=== PATIENT | female | born 1990 | race Caucasian/White ===

== ENCOUNTER → 2019-05-10 14:09 | Outpatient (BNVA) | payer OTHER, SELFPAY | PROVIDERS: Family Provider Family Medicine; PCP Family Medicine; Visit Provider Nurse Practitioner Women's Health | DX: Z01.89 Encounter for other specified special examinations (principal) | CPT/HCPCS: 84315 ==

== ENCOUNTER 2019-05-16 02:45 | Observation (INO) | payer OTHER, SELFPAY ==
[2019-05-15 23:03] VITALS: BP 154/90; PULSE 81; RESP 16; TEMP 36.6
[2019-05-15 23:05] VITALS: BMI 29.5
[2019-05-15 23:18] VITALS: BP 133/73; PULSE 68
[2019-05-15 23:33] VITALS: BP 0/0
[2019-05-15 23:34] VITALS: BP 146/75; PULSE 77
[2019-05-15 23:48] VITALS: BP 0/0; BP 134/76; PULSE 75
[2019-05-16] VITALS (75 sets, daily range): BP systolic 0–143; BP diastolic 0–78; PULSE 63–106; RESP 16–18; TEMP 36.6; O2SAT 95–98
[2019-05-16] MEDS: NIFEdipine ER (24 hr) 30 mg Tablet PO (00:09)
[2019-05-16] MEDS: lactated ringers 1,000 ML 999 ML IV (00:09)
[2019-05-16 00:37] LABS: Bacteria Urine 1+; Bilirubin Urine Neg (NEGATIVE); Blood Urine Neg (Negative); Glucose Urine UA Norm (Normal); Ketones Urine 1+ (Negative); Leukocyte Esterase Urine Negative (Negative); Nitrate Urine Negative (Negative); Protein Urine Neg (Negative); RBC Urine RARE /hpf (0-2); Squamous Epithelial Cell Urine 0-4 (0-5); Urine Appearance Clear (CLEAR); Urine Color Yellow (Yellow); Urobilinogen Urine Norm (Negative); WBC Urine 0-4 /hpf (0-5); pH Urine 5 (5-7)
[2019-05-16 00:38] LABS: Mucus Urine 1+
[2019-05-16] MEDS: fentaNYL 50 mcg/mL INJ 2mL IVP ×2 (01:36→02:32)
[2019-05-16] MEDS: lactated ringers 1,000 ML 125 ML IV (01:36)
[2019-05-16] MEDS: terbutaline 1 mg/mL INJ 0.25 MG SUBCUT (02:47)
[2019-05-16] MEDS: morphine 4 mg/mL SDV 1 mL 8 MG IM (03:31)
[2019-05-16] MEDS: promethazine 25 mg/mL SDV 1 mL IM (03:31)
--- NOTE | 2019-05-16 07:48 | PM.OBGYPN ---
CONVENTION SERVICES DIRECTOR Subjective Subjective: Interval history: 29-year-old female with an estimated gestational age of 31 weeks. Contraction has stopped Labor: Station: -3 Amniotic Membrane Status: Intact Monitor Mode: External Contraction Pattern: Rare Status: Category l Vitals/I&O/Wt Last Vital Signs Temp 97.8 F 05/15/19 23:03 Pulse 63 05/16/19 07:33 Resp 18 05/16/19 02:32 BP 112/59 05/16/19 07:33 Pulse Ox 97 05/16/19 05:37 05/15/19 05/16/19 05/16/19 22:59 06:59 14:59 Intake Total 1000 / 1000 Balance 1000 / 1000 Weight last 48 hrs Weight 172 lb Physical Exam Narrative: EXAM NARRATIVE: GA: Alert and oriented ?3. Lungs: Clear to auscultation bilaterally. Heart: regular rhythm and rate. Abdomen: Gravid, fundal height relates dates, nontender. PRIMARY SUBSTANCE ABUSE COUNSELOR: SVE; dilation: 0 cm, effacement: 0 %, station: -5, presentation: vertex, membranes: intact. Extremities: no edema, no cyanosis, no calves pain. heart tracing: Basal rate: 130s bpm, Variability: moderate, Accelerations: present, Decelerations: absent, Contractions: none. A&P Assessment and plan (1) False labor before 37 completed weeks of gestation, third trimester: 29-year-old female with Gestational age of 31 weeks. Came to labor and delivery complaining of contractions after coitus. She was treated with IV hydration, tocolysis with nifedipine with little response and then treated with terbutaline ?1. Contractions have subsided. NO cervical change noted during the observation. she was counseled to keep a scheduled visit. Precautions were given and adviced to return to L&D if symptoms return. Plan: Discharge home. Continue caresschedule Status: Acute Code(s): O47.03 - False labor before 37 completed weeks of gestation, third trimester Attestations Medical Necessity Statement*: in my professional opinion for chief complaint Coding Level of Care Code Acute Garment Parts Cutter Hand for Chg Fwd Diagnoses False labor before 37 completed weeks of gestation, third trimester O47.03
== END 2019-05-16 08:09 | disposition home or self-care (01) ==
LOC: OBGYN 08:03 → OPOB 08:32
PROVIDERS: Admitting Provider Obstetrics & Gynecology; Family Provider Family Medicine; PCP Family Medicine; Visit Provider Obstetrics & Gynecology
DX: O47.03 False labor before 37 completed weeks of gestation, third trimester (principal); Z3A.31 31 weeks gestation of pregnancy
CPT/HCPCS: 36415; 59025; 81001; 96372; 99211; A9270; G0378; J2270; J2550; J3010; J3105

== ENCOUNTER → 2019-05-26 08:01 | Outpatient (BNVA) | payer OTHER, SELFPAY | PROVIDERS: Family Provider Family Medicine; PCP Family Medicine; Visit Provider Nurse Practitioner Women's Health | DX: Z01.89 Encounter for other specified special examinations (principal) | CPT/HCPCS: 84315 ==

== ENCOUNTER → 2019-06-01 13:40 | Outpatient (BNVA) | payer OTHER, SELFPAY | PROVIDERS: Family Provider Family Medicine; PCP Family Medicine; Referring Provider Nurse Practitioner Women's Health; Visit Provider Nurse Practitioner Women's Health | DX: O47.03 False labor before 37 completed weeks of gestation, third trimester (principal); Z3A.31 31 weeks gestation of pregnancy; O41.03X0 Oligohydramnios, third trimester, not applicable or unspecified | CPT/HCPCS: 76816 ==

== ENCOUNTER → 2019-06-08 12:59 | Outpatient (BNVA) | payer OTHER, SELFPAY | PROVIDERS: Family Provider Family Medicine; PCP Family Medicine; Visit Provider Obstetrics & Gynecology | DX: O47.03 False labor before 37 completed weeks of gestation, third trimester (principal); Z3A.34 34 weeks gestation of pregnancy | CPT/HCPCS: 76815 ==

== ENCOUNTER 2019-06-10 02:55 | Outpatient (CLI) | payer OTHER, SELFPAY ==
[2019-06-10] VITALS (19 sets, daily range): BP systolic 0–148; BP diastolic 0–93; PULSE 63–87; RESP 16; BMI 65.8
[2019-06-10 04:07] LABS: Urine Appearance Hazy (CLEAR); Urine Color Yellow (Yellow); pH Urine 6 (5-7)
[2019-06-10 04:09] LABS: Add Urine Microscopic? YES; Bilirubin Urine Neg (NEGATIVE); Blood Urine Neg (Negative); Glucose Urine UA Norm (Normal); Ketones Urine 1+ (Negative); Leukocyte Esterase Urine Trace (Negative); Nitrate Urine Negative (Negative); Protein Urine Neg (Negative); Urobilinogen Urine Norm (Negative)
[2019-06-10 04:15] LABS: Hyaline Casts Urine 0-4
[2019-06-10 04:16] LABS: RBC Urine 0-4 /hpf (0-2); Squamous Epithelial Cell Urine 15-25 (0-5)
[2019-06-10 04:18] LABS: Add Urine Culture? No; Bacteria Urine 1+; Mucus Urine TRACE; Transitional Epi Cells Urine 0-4 /hpf
[2019-06-10] MEDS: morphine 4 mg/mL SDV 1 mL 10 MG IM (05:22)
== END 2019-06-10 07:30 | disposition home or self-care (01) ==
LOC: OPOB 03:05 → OBGYN 07:17 → OPOB 08:13
PROVIDERS: Family Provider Family Medicine; PCP Family Medicine; Visit Provider Obstetrics & Gynecology Female Pelvic Medicine and Reconstructive Surgery
DX: O26.899 Other specified pregnancy related conditions, unspecified trimester (principal); Z3A.00 Weeks of gestation of pregnancy not specified; R10.9 Unspecified abdominal pain
CPT/HCPCS: 81001; 84315; 96360; 96361; 96372; 99211; J2270

== ENCOUNTER → 2019-06-15 14:58 | Outpatient (BNVA) | payer OTHER, SELFPAY | PROVIDERS: Family Provider Family Medicine; PCP Family Medicine; Visit Provider Nurse Practitioner Women's Health | DX: O47.03 False labor before 37 completed weeks of gestation, third trimester (principal); Z3A.00 Weeks of gestation of pregnancy not specified | CPT/HCPCS: 76815 ==

== ENCOUNTER → 2019-06-22 14:33 | Outpatient (BNVA) | payer OTHER, SELFPAY | PROVIDERS: Family Provider Family Medicine; PCP Family Medicine; Visit Provider Obstetrics & Gynecology | DX: O26.13 Low weight gain in pregnancy, third trimester (principal); Z3A.33 33 weeks gestation of pregnancy | CPT/HCPCS: 76816; 84315; 87081 ==

== ENCOUNTER → 2019-06-29 14:46 | Outpatient (BNVA) | payer OTHER, SELFPAY | PROVIDERS: Family Provider Family Medicine; PCP Family Medicine; Visit Provider Obstetrics & Gynecology Female Pelvic Medicine and Reconstructive Surgery | DX: O36.5930 Maternal care for other known or suspected poor fetal growth, third trimester, not applicable or unspecified (principal); O09.893 Supervision of other high risk pregnancies, third trimester; O26.13 Low weight gain in pregnancy, third trimester; Z3A.37 37 weeks gestation of pregnancy | CPT/HCPCS: 76816; 76819; 76820; 84315 ==

== ENCOUNTER → 2019-07-06 13:20 | Outpatient (BNVA) | payer OTHER, SELFPAY | PROVIDERS: Family Provider Family Medicine; PCP Family Medicine; Visit Provider Obstetrics & Gynecology | DX: O09.893 Supervision of other high risk pregnancies, third trimester (principal); O26.13 Low weight gain in pregnancy, third trimester | CPT/HCPCS: 76819; 76820; 84315 ==

== ENCOUNTER 2019-07-11 07:05 | Inpatient (IN) | payer OTHER, SELFPAY ==
[2019-07-11] VITALS (89 sets, daily range): BP systolic 0–166; BP diastolic 0–92; PULSE 61–121; RESP 16–18; TEMP 36.6–36.9; O2SAT 97–99; BMI 29.8
[2019-07-11 08:30] LABS: Basophils % 0.3 %; Eosinophils # 0.1 10^3/uL (0.0-0.8); Eosinophils % 0.7 %; Hematocrit 36.7 % (37.0-47.0); Hemoglobin 11.6 g/dL (11.5-15.3); Lymphocytes # 1.8 10^3/uL (0.8-4.8); Lymphocytes % 21.1 %; Mean Corpuscular HGB Conc 31.6 g/dL (30.0-36.0); Mean Corpuscular Hemoglobin 27.6 pg (28.0-34.0); Mean Corpuscular Volume 87.2 fL (81-99); Mean Platelet Volume 10.9 fL (7.4-10.4); Monocytes # 0.5 10^3/uL (0.2-0.9); Monocytes % 5.5 %; Neutrophils # 6.2 10^3/uL (1.8-7.7); Neutrophils % 71.7 %; Nucleated Red Blood Cells % 0 %; Platelet Count 213 10^3/cmm (130-400); Red Blood Count 4.21 10^6/uL (4.1-5.3); Red Cell Distribution Width 13.4 % (12.1-15.1); White Blood Count 8.6 10^3/uL (4.0-10.0)
[2019-07-11 08:52] LABS: Alanine Aminotransferase < 5 U/L (0-33); Albumin Level 3.3 g/dL (3.5-5.2); Alkaline Phosphatase 190 IU/L (35-105); Anion Gap 15.9 (5-19); Aspartate Amino Transferase 14 U/L (0-32); Blood Urea Nitrogen 8 mg/dL (6-20); Calcium 8.9 mg/dL (8.5-10.5); Carbon Dioxide 17 mmol/L (22-29); Chloride 104 mmol/L (98-107); Globulin 3.4 g/dL (1.3-4.6); Glomerular Filtration Rate 191.5 mL/min (90-130); Glucose 106 mg/dL (65-115); Osmolality Calculated 272 mOsm/kg (285-295); Potassium 3.9 mmol/L (3.5-5.1); Sodium 133 mmol/L (136-145); Total Bilirubin 0.2 mg/dL (0.15-1.2); Total Protein 6.7 g/dL (6.6-8.7); Uric Acid 4.7 mg/dL (2.4-5.7)
[2019-07-11 08:55] LABS: Urine Creatinine 253 mg/dL (28-217)
[2019-07-11 09:02] LABS: UPRO/UCREAT Ratio 0.12 mg/mg CR; Urine Protein Random 30 mg/dL
[2019-07-11] MEDS: dextrose 5%-lactated ringers 1,000 ML 100 ML IV (09:15)
[2019-07-11] MEDS: oxytocin 30 UNIT/500 ML BAG IV (09:15)
[2019-07-11] MEDS: lactated ringers 1,000 ML 999 ML IV (12:45)
--- NOTE | 2019-07-11 14:02 | P.ANESUD_ITS ---
Pre-Anesthetic Update Pre-Anesthetic Assessment: Date of Surgery/Procedure: 07/11/19 Preop Rhonda gnosis: TErm , EDC 07/18/19 Any changes to Pre-Anesthetic Assessment?: No Labs Last 48hrs: Laboratory Results - last 48 hr 07/11/19 07/11/19 07/11/19 08:05 08:10 08:10 WBC 8.6 RBC 4.21 Hgb 11.6 Hct 36.7 L MCV 87.2 MCH 27.6 L MCHC 31.6 RDW 13.4 Plt Count 213 MPV 10.9 H Neut % (Auto) 71.7 Lymph % (Auto) 21.1 [place] % (Auto) 5.5 Eos % (Auto) 0.7 Baso % (Auto) 0.3 Neut # (Auto) 6.2 Lymph # (Auto) 1.8 [place] # (Auto) 0.5 Eos # (Auto) 0.1 Baso # (Auto) 0.0 Nucleated RBC % (a uto) 0 Nucleated RBCs # 0.0 Sodium 133 L Potassium 3.9 Chloride 104 Carbon Dioxide 17 L Anion Gap 15.9 BUN 8 Creatinine 0.4 L GFR Calculation 191.5 H Glucose 106 Calculated Osmolal ity 272 L Uric Acid 4.7 Calcium 8.9 Total Bilirubin 0.2 AST 14 ALT < 5 Alkaline Phosphata se 190 H Total Protein 6.7 Albumin 3.3 L Globulin 3.4 U Random Total Pro tein 30 Urine Creatinine 253 H Protein/Creatinin Ratio 0.12 Vitals: Temperature 98.3 F 07/11/19 10:30 Temperature Source Oral 07/11/19 10:30 Pulse Rate 88 07/11/19 14:00 Pulse Rhythm 07/11/19 08:26 Pulse Strength 3+ Normal 07/11/19 08:26 Respiratory Effort Non-Labored 07/11/19 08:26 Respiratory Depth Normal 07/11/19 08:26 Respiratory Patter n 07/11/19 08:26 Blood Pressure 124/69 07/11/19 14:00 Blood Pressure Alanna n 87 07/11/19 14:00 Pulse Oximetry 98 07/11/19 13:57 Oxygen Delivery Me thod 07/11/19 08:26 Exam: Pre-Anes Outpt Exam: alert, oriented x 3, clear to auscultation bilaterally and regular rate & rhythm Cardiac Studies: No Data to Display
--- NOTE | 2019-07-11 14:02 | ANES.PROC ---
Anesthesia Procedures Procedure/Date: 07/11/19 Epidural: Time Out Performed: Yes Consents Signed: Procedure Consent Consent: requested by attending/covering physician, from patient, risks and benefits reviewed and patient agrees to proceed Lumbar Level: L3-L4 Epidural position: sitting Epidural procedure: sterile prep of area, 1% lidocaine to numb the area, 18 g needle, neg for paresthesia, test dose given (Negative), 1.5% xylocaine 1:200k epi, placed PCEA, no systemic response, sterile dressing applied and 0.2% Ropiavacaine @ mls/hr (10mls/hr-5mls q 15min) Additional Comments: Catheter at 10cm, patient tolerated well.
--- NOTE | 2019-07-11 17:55 | P.PCNOB_ITS ---
Delivery Note: Date of delivery: July 11, 2019 Pre-Delivery Course: Ms. Romero is a 29-year-old 3 para 2-0-0-2 at 39 weeks and 0 days gestation who presented to labor and delivery on 07/11/2019 for scheduled induction for labor for IUGR versus SGA. was complicated by IUGR with growth less than the 3rd percentile. Although she did have a history of prior small babies given the possibility of IUGR and after extensive counseling decision was made to proceed with induction at 39 weeks. She had no new complaints when she presented for induction and was overall feeling well. tracing was category 1 and cervix was 2, 50%, -1. She had occasional contractions on the monitor. Induction was started with Pitocin titrated to a maximum of 20 mIU. tracing continued to remain category 1. She remained comfortable initially however soon grew uncomfortable and an epidural was placed for pain relief. She had made cervical change and after the epidural she was noted to be 4 cm 60% and -1 station. Artificial rupture of membranes was performed with clear fluid at 2:05 PM. tracing continue to remain category 1 and she made slow progress to 5 cm. She made rapid cervical change after that and was fully dilated at 5:19 PM. station was +2 and she was placed in lithotomy position ready to push. Delivery: She was set up in lithotomy position and was pushing effectively. She was noted to be +3 station and continued pushing well. The head delivered in YUAN position, no nuchal cord was present. The shoulders and rest of the body followed with her next push. The baby's mouth and nose were suctioned and baby was placed on mother's abdomen. Once cord pulsations stopped the cord was clamped and cut and the . Placenta delivered spontaneously intact with membranes and was discarded. The fundus was noted to be firm and well contracted. The vagina and cervix were inspected and no cervical or sulcal lacerations were noted. The perineum was intact. There was small abrasions noted on the surface of the labia. Baby girl, Camila born at 5:24 PM on 07/11/2019 with 8/9, weighing 5 pounds 6 ounces, 2425 g, 18 inches long. Placenta was delivered spontaneously intact with membranes at 5:27 PM. Cotyledons were intact , centrally inserted umbilical cord with 3 vessels noted. Estimated blood loss 200 mL. Complications-none, both patient and baby were left to recovery in a stable condition. Post-Delivery Status: Stable Coding Level of Care Code Acute Optical Design Engineer for Chg Ion
[2019-07-11] MEDS: dextrose 5%-lactated ringers 1,000 ML 84 ML IV (18:16)
[2019-07-11] MEDS: metoprolol tartrate 50 mg Tablet PO (21:28)
[2019-07-11] MEDS: docusate sodium 100 mg Capsule PO (21:28)
[2019-07-12 01:15] VITALS: BP 120/72; PULSE 66; RESP 16; TEMP 36.8; O2SAT 96
[2019-07-12 03:15] VITALS: BP 116/73; PULSE 66; RESP 18; O2SAT 98
[2019-07-12] MEDS: HYDROcodone-acetaminophen 5-325 mg Tablet 1 TAB PO (05:44)
[2019-07-12] MEDS: benzocaine-menthol 78 gm Canister 1 SPRAY TOPICAL (05:45)
[2019-07-12] MEDS: lanolin oint 7 gm 1 APPLIC TOPICAL (05:46)
[2019-07-12 06:32] LABS: Hemoglobin 10.5 g/dL (11.5-15.3); Mean Corpuscular HGB Conc 31.8 g/dL (30.0-36.0); Mean Corpuscular Hemoglobin 27.9 pg (28.0-34.0); Mean Corpuscular Volume 87.8 fL (81-99); Mean Platelet Volume 11.1 fL (7.4-10.4); Platelet Count 186 10^3/cmm (130-400); Red Blood Count 3.76 10^6/uL (4.1-5.3); Red Cell Distribution Width 13.5 % (12.1-15.1); White Blood Count 7.4 10^3/uL (4.0-10.0)
[2019-07-12 07:20] VITALS: BP 134/84; PULSE 66; RESP 16; TEMP 36.7; O2SAT 98
--- NOTE | 2019-07-12 07:49 | P.DS_ITS ---
Discharge Providers Date of Admission: 07/11/19 07:05 Date of Discharge: July 12, 2019 Attending Provider at Admission: Ignacio Esteban MD Attending Provider at Discharge: Ignacio Esteban MD Primary Care Provider: Rashad Stockton MD Diagnoses at Discharge Discharge Diagnosis (1) Request for sterilization: Status: Acute (2) Heartburn: Status: Acute Problem details: Diagnosed with esophagitis and gastritis on endoscopy done in February 2017. This was performed by Dr. Pal and she was taking Prilosec at the start of the . (3) Smoking (tobacco) complicating , third trimester: Status: Acute (4) Other mental disorders complicating , third trimester: Status: Acute (5) Inappropriate sinus tachycardia: Status: Acute Problem details: ---EP dr in [facility]--Dr. Dickinson; does not see anyone locally. EP study done, but no cardiac ablation; managed with diltiazem and metoprolol prior to Hospital Course Hospital Course: Ms. Romero is a 29-year-old 3 para 2-0-0-2 at 39 weeks and 0 days gestation who presented to labor and delivery on 07/11/2019 for scheduled induction for labor for IUGR versus SGA. was complicated by IUGR with growth less than the 3rd percentile. Although she did have a history of prior small babies given the possibility of IUGR and after extensive counseling decision was made to proceed with induction at 39 weeks. She had no new complaints when she presented for induction and was overall feeling well. tracing was category 1 and cervix was 2, 50%, -1. She had occasional contractions on the monitor. Induction was started with Pitocin titrated to a maximum of 20 mIU. tracing continued to remain category 1. She remained comfortable initially however soon grew uncomfortable and an epidural was placed for pain relief. She had made cervical change and after the epidural she was noted to be 4 cm 60% and -1 station. Artificial rupture of membranes was performed with clear fluid at 2:05 PM. tracing continue to remain category 1 and she made slow progress to 5 cm. She made rapid cervical change after that and was fully dilated at 5:19 PM. station was +2 and she was placed in lithotomy position ready to push. She underwent an uncomplicated vaginal delivery on 07/11/2019. On day #0 she did well and tolerated regular diet and vital signs were stable. On post day #1 she continued to do well with stable vital signs and stable hemoglobin of 10.5. She was breast-feeding and bonding well with her daughter and denied any depressive symptoms. She had passed flatus and tolerating regu lar diet and voiding freely. She desired discharge home today and plan will be to discharge patient later home today at the 24-hour asia. instructions and complications discussed with patient and she will call us for any questions or concerns Physical Exam Narrative: EXAM NARRATIVE: Gen.: No acute distress Heart: S1-S2 heard, regular rate and rhythm Lungs: Clear to auscultation bilaterally Abdomen: Soft, fundus firm below umbilicus. Legs: No calf tenderness, no pedal edema. Urinary Catheter Management^: Colvin: Cath Placed During This Visit: yes Urinary Catheter Date of Insertion: 07/11/19 Urinary Catheter Time of Insertion: 14:36 Discharge Data Data Completed and Pending: Labs from last 24 hours 07/12/19 07/11/19 07/11/19 06:11 08:10 08:10 WBC 7.4 8.6 RBC 3.76 L 4.21 Hgb 10.5 L 11.6 Hct 33.0 L 36.7 L MCV 87.8 87.2 MCH 27.9 L 27.6 L MCHC 31.8 31.6 RDW 13.5 13.4 Plt Count 186 213 MPV 11.1 H 10.9 H Neut % (Auto) 71.7 Lymph % (Auto) 21.1 [place] % (Auto) 5.5 Eos % (Auto) 0.7 Baso % (Auto) 0.3 Neut # (Auto) 6.2 Lymph # (Auto) 1.8 [place] # (Auto) 0.5 Eos # (Auto) 0.1 Baso # (Auto) 0.0 Nucleated RBC % (a uto) 0 Nucleated RBCs # 0.0 Sodium 133 L Potassium 3.9 Chloride 104 Carbon Dioxide 17 L Anion Gap 15.9 BUN 8 Creatinine 0.4 L GFR Calculation 191.5 H Glucose 106 Calculated Osmolal ity 272 L Uric Acid 4.7 Calcium 8.9 Total Bilirubin 0.2 AST 14 ALT < 5 Alkaline Phosphata se 190 H Total Protein 6.7 Albumin 3.3 L Globulin 3.4 U Random Total Pro tein Urine Creatinine Protein/Creatinin Ratio 03/09/20 08:05 WBC RBC Hgb Hct MCV MCH MCHC RDW Plt Count MPV Neut % (Auto) Lymph % (Auto) [place] % (Auto) Eos % (Auto) Baso % (Auto) Neut # (Auto) Lymph # (Auto) [place] # (Auto) Eos # (Auto) Baso # (Auto) Nucleated RBC % (a uto) Nucleated RBCs # Sodium Potassium Chloride Carbon Dioxide Anion Gap BUN Creatinine GFR Calculation Glucose Calculated Osmolal ity Uric Acid Calcium Total Bilirubin AST ALT Alkaline Phosphata se Total Protein Albumin Globulin U Random Total Pro tein 30 Urine Creatinine 253 H Protein/Creatinin Ratio 0.12 Vitals: Last Vital Signs Temp 98.3 F 07/12/19 01:15 Pulse 66 07/12/19 03:15 Resp 18 07/12/19 03:15 BP 116/73 07/12/19 03:15 Pulse Ox 98 07/12/19 03:15 Discharge Plan Discharge Patient Disposition: Home, Self-Care Condition: Stable Prescriptions: New ibuprofen 800 mg tablet 800 mg PO Q8H Qty: 30 RF: 0 docusate sodium 100 mg Capsule 100 mg PO BID Qty: 30 RF: 0 Continued buspirone 5 mg tablet 5 mg PO BID RF: 0 metoprolol tartrate 25 mg tablet 50 mg PO BID RF: 0 28-800 mg-mcg Tablet 1 tab PO DAILY RF: 0 No Action (DME) breast pump Device See Rx Instructions .ROUTE .MEDSUPPLY Qty: 1 RF: 0 Discharge Orders: Discharge Order (Routine); Ordered 07/12/19 Ordered By: Ignacio Esteban Referrals: Ignacio Esteban MD [Physician] - (You have an appointment with Dr. Paz on Saturday August 17, 2019 at 0845 and an appointment on August.) Patient Instructions: Vaginal Delivery (DC), OB Discharge Report, OB Food/Drug Interaction Guide, OB Proud Parent Packet, Abnormal Bleeding Activity Restrictions/Additional Instructions: No heavy lifting for 6 weeks Pelvic rest for 6 weeks Regular diet Monitor blood pressure and pulse Emergency room precautions reviewed Discharge Date/Time: 07/12/19 18:04 Discharge Attestations Time Spent in Discharge Care*: less than 30 min Status at Discharge: Overall status at discharge: other (Stable) Quality Metrics Clinical Quality Measures During this hospital stay, did patient experience: None Coding Level of Care Code Acute Assistant Professor Of Religion for Chg Fwd Diagnoses Request for sterilization Z30.2 Heartburn R12 Smoking (tobacco) complicating , third trimester O99.333 Other mental disorders complicating , third trimester O99.343 Inappropriate sinus tachycardia R00.0
[2019-07-12 09:04] VITALS: BP 128/85; PULSE 65; RESP 16; TEMP 36.7; O2SAT 98
[2019-07-12] MEDS: docusate sodium 100 mg Capsule PO (09:05)
[2019-07-12] MEDS: metoprolol tartrate 50 mg Tablet PO (09:06)
[2019-07-12] MEDS: prenatal vitamin Capsule 1 CAP PO (09:06)
--- NOTE | 2019-07-12 10:18 | ANE.PACU2 ---
 Inpatient post-anesthesia follow up: Airway intact: Yes Vital signs: Temperature 98.0 F Pulse Rate 65 Respiratory Rate 16 Blood Pressure 128/85 Pulse Oximetry 98 Oxygen Delivery Me thod Room Air Oxygen Flow Rate Fraction of Inspir ed Oxygen Hydration adequate: Yes Nausea and vomiting: No Mental status: Baseline Additional Comments: No signs of infection at epidural site, patient up and walking, no lower extremity weakness or numbness, urinating since lizama removed, no headaches
[2019-07-12 17:00] VITALS: BP 131/84; PULSE 83; RESP 16; TEMP 36.7; O2SAT 97
[2019-07-12 18:00] VITALS: BP 131/84; PULSE 83; RESP 16; TEMP 36.7; O2SAT 97
== END 2019-07-12 18:04 | disposition home or self-care (01) | DRG 807 ==
PROVIDERS: Admitting Provider Obstetrics & Gynecology; Family Provider Family Medicine; PCP Family Medicine; Visit Provider Obstetrics & Gynecology
DX: O36.5930 Maternal care for other known or suspected poor fetal growth, third trimester, not applicable or unspecified (principal); Z37.0 Single live birth; O70.0 First degree perineal laceration during delivery; O99.419 Diseases of the circulatory system complicating pregnancy, unspecified trimester; O99.333 Smoking (tobacco) complicating pregnancy, third trimester; O99.343 Other mental disorders complicating pregnancy, third trimester; R00.0 Tachycardia, unspecified; Z3A.39 39 weeks gestation of pregnancy
CPT/HCPCS: 12345; 36415; 51702; 59025; 59409; 80053; 82570; 84156; 84550; 85025; 85027; 98960; G0379; J2001; J2795

== ENCOUNTER 2019-09-15 06:05 | Day surgery (SDC) | payer OTHER, SELFPAY ==
[2019-09-14 09:56] VITALS: BMI 27.1
[2019-09-15] VITALS (11 sets, daily range): BP systolic 108–128; BP diastolic 50–86; PULSE 51–76; RESP 16–19; TEMP 36.1–36.6; O2SAT 97–100
[2019-09-15] MEDS: sodium chloride 0.9% 1,000 ML 30 ML IV (06:30)
[2019-09-15 06:45] LABS: OR HCG Qualitative Urine Negative (Negative)
[2019-09-15 06:50] LABS: Basophils % 0.2 %; Eosinophils # 0.1 10^3/uL (0.0-0.8); Eosinophils % 1.1 %; Hematocrit 40.9 % (37.0-47.0); Hemoglobin 12.9 g/dL (11.5-15.3); Lymphocytes # 2.8 10^3/uL (0.8-4.8); Lymphocytes % 45.3 %; Mean Corpuscular HGB Conc 31.5 g/dL (30.0-36.0); Mean Corpuscular Hemoglobin 28.3 pg (28.0-34.0); Mean Corpuscular Volume 89.7 fL (81-99); Mean Platelet Volume 10.4 fL (7.4-10.4); Monocytes # 0.5 10^3/uL (0.2-0.9); Monocytes % 8.2 %; Neutrophils # 2.8 10^3/uL (1.8-7.7); Neutrophils % 44.6 %; Nucleated Red Blood Cells % 0 %; Platelet Count 305 10^3/cmm (130-400); Red Blood Count 4.56 10^6/uL (4.1-5.3); Red Cell Distribution Width 13.1 % (12.1-15.1); White Blood Count 6.3 10^3/uL (4.0-10.0)
--- NOTE | 2019-09-15 06:50 | W.PM.OPSUD ---
Surgery/Procedure H&P Update DATE OF PROCEDURE: September 15, 2019 DATE H&P PERFORMED: 09/12/19 H&P UPDATE INFORMATION: I have reviewed H&P completed within last 30 days, I have examined patient prior to procedure, No changes to prior documentation and H&P is in [facility] EMR on date indicated PREOP DIAGNOSIS: Request for sterilization PRIMARY INDICATION FOR PROCEDURE: sterilization PLANNED PROCEDURE: Operation Date: 09/15/19 07:00 Proposed Procedures p Lap Fulg,Removal of Tubes Sterilization 29652/Z30.2(Not Applicable) - Ignacio Esteban MD
--- NOTE | 2019-09-15 06:51 | W.PM.OPSUD ---
Surgery/Procedure H&P Update DATE OF PROCEDURE: September 15, 2019 DATE H&P PERFORMED: 09/12/19 H&P UPDATE INFORMATION: I have reviewed H&P completed within last 30 days, I have examined patient prior to procedure, No changes to prior documentation and H&P is in [facility] EMR on date indicated PREOP DIAGNOSIS: Request for sterilization PRIMARY INDICATION FOR PROCEDURE: sterilization PLANNED PROCEDURE: Operation Date: 09/15/19 07:00 Proposed Procedures p Lap Fulg,Removal of Tubes Sterilization 16210/Z30.2(Not Applicable) - Ignacio Esteban MD
--- NOTE | 2019-09-15 06:54 | ANES.PREANE2 ---
Pre-Anesthetic Assessment Pre-Anesthetic Assessment: Height/Weight: Height 1.63 m Weight 71.668 kg Temp Pulse Resp BP Pulse Ox 97.2 F L 75 18 128/86 97 09/15/19 06:15 09/15/19 06:15 09/15/19 06:15 09/15/19 06:15 09/15/19 06:15 Preop Diagnosis: Request for sterilization Proposed Procedure: Operation Date: 09/15/19 07:00 Proposed Procedures p Lap Fulg,Removal of Tubes Sterilization 28295/Z30.2(Not Applicable) - Ignacio Esteban MD Last intake: Intake Last Liquid Date 09/14/19 Last Solid Date 09/14/19 Social: Social History: Alcohol and Tobacco Exam: Pre-Anes Outpt Exam: alert, oriented x 3, clear to auscultation bilaterally and regular rate & rhythm Airway: Submandibular: WNL Cervical ROM: WNL MP: 2 Dentition: Other (teeth ok) History/ROS: No significant history except as noted Pulmonary: Pulmonary: None reported CV/HEM: CV/HEM: Arrythmia (SVT) : : None reported Hepatic: Hepatic: None reported GI: GI: None reported Metabolic: Metabolic: None reported Musc/skel: Musc/skel: None reported Neuropsych: Neuropsych: None reported Anesthetic Plan: ASA status: 2 Anesthesia: Anesthesia Evaluation and General Risk of > 500 ml blood loss (7ml/kg in children): No PFSH Anesthesia PFSH: Medical History (Updated 09/14/19 @ 07:50 by Ignacio Esteban MD) Abnormal uterine bleeding -08/04/2018---([facility]) ----CBC-5.7<14.7/44.7> 256 ----TSH-0.57-normal ---> Pelvic sonogram in September 2018 was also within normal limits Anxiety and depression -Was on Celexa prior to the in 2018 and self discontinued this during the and her symptoms are well-controlled with this. Does not have a therapist. -Symptoms are controlled on BuSpar and Zoloft during the and she would like to continue this as well Heartburn Diagnosed with esophagitis and gastritis on endoscopy done in February 2017. This was performed by Dr. Pal and she was taking Prilosec at the start of the . Inappropriate sinus tachycardia ---EP dr in [facility]--Dr. Dickinson; does not see anyone locally. EP study done, but no cardiac ablation; managed with diltiazem and metoprolol prior to No pertinent past medical history Denies diabetes, asthma, seizures, DVT/PE, hypertension Surgical History H/O laparoscopy (08/03/08) 08/03/2008--> done for chronic pelvic pain by Dr. Singleton. Operative findings showed removal of hemoperitoneum with fulguration of endometriotic lesions in the cul-de-sac biopsy. Fallopian tubes looked normal. Biopsy of the cul-de-sac lesions show abnormal endometrial glands. Endometrial biopsy was performed at the same time which showed mild proliferation. (Records are scanned into the all scripts ) H/O right wrist surgery (~03/2015) Done for ganglion cyst at [facility] in [place] Family History Grandfather Heart disease Paternal; at age 36 of [place] Father Hypertension Family/Other Patient denies medical problems She denies family history of DVT/PE, breast, cervical, uterine, ovarian, colon cancer. Denies family history of Cervical cancer Colon cancer Ovarian cancer DVT (deep venous thrombosis) Breast cancer Pulmonary embolism Uterine cancer Social History Smoking and tobacco status: current every day smoker cigarettes Alcohol intake: former Additional social history: - Tobacco Use: Started smoking at the age of 13 and smoked 1 pack of cigarettes a day at the most. Has been cutting down since she found out she is and currently smokes 6 cigarettes daily. Drug Use: Denies Alcohol Use: She does drink two beers weekly on average. None since she found out she was . 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
[2019-09-15] MEDS: silver nitrate applicator 1 EACH TOPICAL (08:14)
--- NOTE | 2019-09-15 08:22 | PM.OP ---
Operative Report Date of procedure: September 15, 2019 OPERATIVE REPORT Date of surgery: 09/15/2019 Date of dictation: 09/15/2019 Preoperative diagnosis: 29-year-old 3 para 3-0-0-3 desiring permanent sterilization, anxiety and depression, abnormal uterine bleeding, inappropriate sinus tachycardia. Postoperative diagnosis/findings: On exam under anesthesia a 6-week size anteverted anteflexed uterus, no adnexal masses, grade 1 cystocele, grade 1 uterine descent, no rectocele. On laparoscopy normal tubes and ovaries bilaterally, normal uterus, no adhesions intra-abdominally. Procedure done: Laparoscopic bilateral total salpingectomy for sterilization Specimens removed/disposition of specimens: Right and left fallopian tube sent to pathology with the right tube tagged Surgeon: Dr. Ignacio Paz Tiger Machine Operator: Sarahi Gunn Anesthesia: General endotracheal tube anesthesia Estimated blood loss: Less than 25 ml Intravenous fluids: 600 mL of LR Urine output: 100 mL of clear urine at the end of procedure Medications: As per anesthesia records Complications: None, patient was extubated and taken to recovery room in a stable condition PROCEDURE: After consents were signed patient was taken to the operating room where she was placed under general anesthesia without any difficulty. She was placed supine on the table in the lithotomy position. Exam under anesthesia revealed 6-week size anteverted anteflexed uterus, no adnexal masses, grade 1 cystocele, grade 1 uterine descent, no rectocele. She was then prepped and draped in usual sterile fashion. Weighted speculum and anterior wall retractors were placed in the vagina, cervix visualized and grasped with a tenaculum. ZUMI uterine manipulator was placed into the uterus without any difficulty. Colvin catheter was placed, instruments were removed from the vagina and the legs were lowered. Attention was turned towards the abdomen where half percent Marcaine with epinephrine was injected in to her umbilicus. A 10 mm skin incision was made and a 10 mm port was placed through the umbilicus using an open technique--- fascia was identified and tented up with Alan clamps and directly incised using curved Mayos. Peritoneum was then bluntly entered digitally and palpation revealed no adhesions around site of entry. Wallis trocar was then attached to the fascia and inflated.. Once intra-abdominal entry was confirmed gas was turned on and intra-abdominal opening pressure was 2. The abdomen is insufflated to the pressure was 14. Survey of the abdomen revealed normal tubes and ovaries bilaterally, normal uterus, no adhesions intra-abdominally. No signs of endometriosis noted. Two 5 mm trocar was placed into the left and right lower quadrant under direct visualization after injecting Marcaine. The Vuoyant device was used to clamp, cauterize and then cut the mesosalpinx under the fallopian tube starting at the fimbriated end and moving towards the uterus. This was done in a sequential fashion in such a way that the entire fallopian tube was from the sidewall and the uterus. The small cornual stump was cauterized as well. This was done first on the right side and then the left side without any difficulty. The right and left fallopian tubes were taken out of the lateral port without any difficulty. No bleeding was noted at sites of surgery. Trochars were removed under direct visualization. All instruments removed from the abdomen and the abdomen was desufflated. The fascia on the umbilical port was closed with 0 Vicryl in a continuous fashion and good reapproximation was obtained-care was taken to tent up the fascia throughout the closure. The skin incisions was closed with 4-0 Monocryl in a subcuticular fashion good reapproximation and good hemostasis was noted. The incisions were dressed with Steri-Strips Telfa and Tegaderm. The ZUMI and Colvin catheter were removed and good hemostasis with silver nitrate. The patient was extubated without any difficulty and taken to the recovery room in a stable condition. FOLLOW UP: Follow-up in 2 weeks and 6 weeks with surgeon MEDICATION ON DISCHARGE: Colace 100 mg by mouth every 12 hours when necessary constipation, 30 tablets, no refills Ibuprofen 800 mg by mouth every 8 hours when necessary pain, 60 tablets, no refills. [place] 5/325 mg 1 tablet by mouth every 6 hours when necessary pain,30 tablets, no refills Continue other home medication DISPOSITION: Home in a stable condition Pre-op Diagnosis: Request for sterilization
[2019-09-15] MEDS: fentaNYL 50 mcg/mL INJ 2mL 100 MCG IVP (08:37)
[2019-09-15] MEDS: HYDROcodone-acetaminophen 5-325 mg Tablet 1 TAB PO (09:26)
== END 2019-09-15 09:45 | disposition home or self-care (01) ==
PROVIDERS: PCP Family Medicine; Visit Provider Obstetrics & Gynecology
PROC: (CPT 58661; principal; 2019-09-15 07:00)
DX: Z30.2 Encounter for sterilization (principal); N93.9 Abnormal uterine and vaginal bleeding, unspecified; F17.210 Nicotine dependence, cigarettes, uncomplicated
CPT/HCPCS: 58661; 12345; 36415; 81025; 84703; 85025; 86850; 86900; 88302; J0131; J1100; J2001; J2405; J2704; J3010; J3490; J7030

== ENCOUNTER 2019-10-24 16:24 | Outpatient (CLI) | payer OTHER, SELFPAY ==
--- NOTE | 2019-10-24 16:34 | XRR_ITS ---
PROCEDURE INFORMATION: Exam: XR Abdomen, 1 View Exam date and time: 10/24/2019 4:46 PM Age: 29 years old Clinical indication: Pain; Other: Flank; Additional info: Right flank pain TECHNIQUE: Imaging protocol: XR of the abdomen. Views: Frontal supine view of the abdomen. 1 View. COMPARISON: No relevant prior studies available. FINDINGS: Gastrointestinal tract: Normal. No bowel dilation. There is moderate colonic fecal stasis. Bones/joints: Unremarkable. The examination is negative for radiodense urinary tract stones XR/XR KUB [id number] IMPRESSION: No acute findings. Negative for radiodense urinary tract stones
== END 2019-10-24 16:25 | disposition home or self-care (01) ==
LOC: RAD 16:27
PROVIDERS: PCP Family Medicine; Visit Provider Nurse Practitioner Family
DX: R10.9 Unspecified abdominal pain (principal); M54.9 Dorsalgia, unspecified
CPT/HCPCS: 74018; 81000

== ENCOUNTER 2019-10-26 00:59 | Emergency (ER) | payer OTHER, SELFPAY ==
[2019-10-26 01:25] VITALS: BP 139/84; PULSE 80; RESP 16; TEMP 37.2; O2SAT 99; BMI 27.4
--- NOTE | 2019-10-26 01:35 | ED_ITS ---
HPI - Back Pain/Injury General: Chief Complaint: Back Pain/Injury Stated Complaint: back pain Time Seen by Provider: 10/26/19 01:21 Source: patient Mode of arrival: ambulatory Limitations: no limitations History of Present Illness: HPI Narrative: Patient is a 29-year-old female who presents to ED today with a complaint of right flank pain that began fairly suddenly approximately 5 days ago. She states pain is fairly constant but has exacerbations where pain becomes unbearable. She does complain of some mild urinary urgency and hesitancy. She has not noticed any burning with urination or hematuria. Patient was seen at urgent care yesterday and given Flomax and Zofran. She had a KUB performed there which was negative. Patient has been straining her urine and has noticed small amounts of sediment. Patient is not having any fevers. She does not complain of any abdominal pain. Reports some nausea without vomiting. No changes in bowel movements. No history of kidney stones. MD elicited complaint: back pain Onset (ago): day(s) Timing: intermittent Similar Symptoms Previously: No Quality: sharp Location: right flank Associated symptoms: Reports nausea and urinary urgency; Deny abdominal pain, chills, change in bowel habits, dysuria, fatigue, fever(s) or vomiting Work related injury: No Review of Systems Const: Denies: fever(s), chills, body aches, fatigue or malaise Card: Denies: chest pain Resp: Denies: dyspnea, productive cough, non-productive cough or chest congestion GI: Reports: nausea; Denies: abdominal pain, vomiting, hematemesis, heartburn, diarrhea, constipation, change in bowel habits, pain on defecation, change in stool character, hematochezia, melena or white/light colored stool : Reports: flank pain, urinary urgency and urinary hesitancy; Denies: difficulty voiding, dysuria, urinary frequency, dribbling, urinary incontinence, vaginal bleeding or vaginal discharge Musc: Reports: back pain (R flank); Denies: neck pain, extremity pain, extremity swelling, joint pain or joint swelling Skin/Breast: Denies: rash Neuro: Denies: headache(s) PFS ED PFSH: Medical History Abnormal uterine bleeding -08/04/2018---([facility]) ----CBC-5.7<14.7/44.7> 256 ----TSH-0.57-normal ---> Pelvic sonogram in September 2018 was also within normal limits Anxiety and depression -Was on Celexa prior to the in 2018 and self discontinued this during the and her symptoms are well-controlled with this. Does not have a therapist. -Symptoms are controlled on BuSpar and Zoloft during the and she would like to continue this as well Heartburn Diagnosed with esophagitis and gastritis on endoscopy done in February 2017. This was performed by Dr. Pal and she was taking Prilosec at the start of the . Inappropriate sinus tachycardia ---EP dr in [facility]--Dr. Dickinson; does not see anyone locally. EP study done, but no cardiac ablation; managed with diltiazem and metoprolol prior to No pertinent past medical history Denies diabetes, asthma, seizures, DVT/PE, hypertension Surgical History H/O laparoscopy (08/03/08) 08/03/2008--> done for chronic pelvic pain by Dr. Singleton. Operative findings showed removal of hemoperitoneum with fulguration of endometriotic lesions in the cul-de-sac biopsy. Fallopian tubes looked normal. Biopsy of the cul-de-sac lesions show abnormal endometrial glands. Endometrial biopsy was performed at the same time which showed mild proliferation. (Records are scanned into the all scripts ) H/O right wrist surgery (~03/2015) Done for ganglion cyst at [facility] Status post tubal ligation 09/15/2019--- laparoscopic bilateral total salpingectomy for sterilization performed by Dr. Paz at [facility]. Pathology showed benign fallopian tubes bilaterally with lumens. Family History Grandfather Heart disease Paternal; at age 36 of [place] Father Hypertension Family/Other Patient denies medical problems She denies family history of DVT/PE, breast, cervical, uterine, ovarian, colon cancer. Denies family history of Cervical cancer Colon cancer Ovarian cancer DVT (deep venous thrombosis) Breast cancer Pulmonary embolism Uterine cancer Social History Smoking and tobacco status: current every day smoker cigarettes Alcohol intake: former Additional social history: - Tobacco Use: Started smoking at the age of 13 and smoked 1 pack of cigarettes a day at the most. Has been cutting down since she found out she is and currently smokes 6 cigarettes daily. Drug Use: Denies Alcohol Use: She does drink two beers weekly on average. None since she found out she was . 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 Female Reproductive History: Date of last menstrual period: 10/26/19 Physical Exam Const: COMMON NORMALS: average body habitus, patient oriented x3, no limitations, healthy appearing and alert GENERAL APPEARANCE: cooperative and in distress (appears uncomfortable due to pain) GI: COMMON NORMALS: Normal to inspection, nondistended, normoactive bowel sounds present, Soft to palpation, non-tender, No hepatosplenomegaly present and no masses PALPATION: Yes Soft to palpation and Yes No hepatosplenomegaly present : BLADDER/KIDNEY EXAM: Yes CVA tenderness (just under R CVA) Back/Pelvis: GENERAL BACK: Yes CVA tenderness (just under R CVA) Extremity: COMMON NORMALS: normal to inspection Neuro: COMMON NORMALS: patient oriented x3 SENSORIUM/ORIENTATION: Yes alert Course Reevaluation(s): Reevaluation #1: Patient reports feeling much better after IV toradol/zofran. Vital Signs: Vital signs: Vital Signs Temperature 97.6 F 10/26/19 03:58 Pulse Rate 88 10/26/19 03:58 Respiratory Rate 16 10/26/19 03:58 Blood Pressure 137/63 10/26/19 03:58 Pulse Oximetry 98 10/26/19 03:58 MDM - Back Pain/Injury MDM Narrative: Medical decision making narrative: Pt has a normal white count. She is not tachy or febrile. UA showing blood, 2+ leuks, >[address] scan does not show a kidney stone but confirms diagnosis of pyelo. She was given IV rocephin here and will be sent home with PO cipro. Strict return to ED precautions given. Lab Data: Labs: Lab Results 10/26/19 10/26/19 10/26/19 Range/Units 01:24 01:49 01:49 WBC 7.5 (4.0-10.0) 10^3/ uL RBC 4.34 (4.1-5.3) 10^6/u L Hgb 12.4 (11.5-15.3) g/dL Hct 38.9 (37.0-47.0) % MCV 89.6 (81-99) fL MCH 28.6 (28.0-34.0) pg MCHC 31.9 (30.0-36.0) g/dL RDW 14.2 (12.1-15.1) % Plt Count 271 (130-400) 10^3/c mm MPV 11.0 H (7.4-10.4) fL Neut % (Auto) 52.9 % Lymph % (Auto) 38.2 % Garrard % (Auto) 7.2 % Eos % (Auto) 1.1 % Baso % (Auto) 0.3 % Neut # (Auto) 4.0 (1.8-7.7) 10^3/u L Lymph # (Auto) 2.9 (0.8-4.8) 10^3/u L Garrard # (Auto) 0.5 (0.2-0.9) 10^3/u L Eos # (Auto) 0.1 (0.0-0.8) 10^3/u L Baso # (Auto) 0.0 (0.0-0.1) 10^3/u L Nucleated RBC % (a uto) 0 % Nucleated RBCs # 0.0 /100WBC Sodium 138 (136-145) mmol/L Potassium 4.5 (3.5-5.1) mmol/L Chloride 105 (98-107) mmol/L Carbon Dioxide 20 L (22-29) mmol/L Anion Gap 17.5 (5-19) BUN 16 (6-20) mg/dL Creatinine 0.7 (0.5-0.9) mg/dL GFR Calculation 100.4 (90-130) mL/min Glucose 101 (65-115) mg/dL Calculated Osmolal ity 282 L (285-295) mOsm/k g Calcium 9.0 (8.5-10.5) mg/dL Total Bilirubin 0.2 (0.15-1.2) mg/dL AST 20 (0-32) U/L ALT 15 (0-33) U/L Alkaline Phosphata se 98 (35-105) IU/L Total Protein 7.1 (6.6-8.7) g/dL Albumin 4.0 (3.5-5.2) g/dL Globulin 3.1 (1.3-4.6) g/dL Urine Color Yellow (Yellow) Urine Appearance Sl hazy (CLEAR) Urine pH 6 (5-7) Ur Specific Gravit y 1.010 (1.005-1.030) Urine Protein Neg (Negative) Urine Glucose (UA) Norm (Normal) Urine Ketones Negative (Negative) Urine Blood 3+ H (Negative) Urine Nitrate Negative (Negative) Urine Bilirubin Neg (NEGATIVE) Urine Urobilinogen Norm (Negative) mg/dL Ur Leukocyte Sondra ase 2+ H (Negative) Urine RBC 0-4 H (0-2) /hpf Urine WBC >100 H (0-5) /hpf Ur Squamous Epith Cells 0-4 H (0-5) Urine Bacteria 1+ H (NONE) Imaging Data^: CT Abd/Pel: Radiologist's impression: [place] [address] CT Scan Report Signed Patient: Monica Romero Unit #: [id number] : 1990 Age/Sex: 29 / F ADM Date: 10/26/19 Loc: ER Room/Bed: Attending Dr: Ordering Provider/Ordering MD: Ana M Galeano Date of Service: 10/26/19 Procedure(s): CT kidney stone 70440 Accession Number(s): [id number] Report Number: [id number] PROCEDURE INFORMATION: Exam: CT Abdomen And Pelvis Without Contrast Exam date and time: 10/26/2019 1:40 AM Age: 29 years old Clinical indication: Abdominal pain; Flank; Right; Prior surgery; Surgery type: Btl; Additional info: R flank pain TECHNIQUE: Imaging protocol: Computed tomography of the abdomen and pelvis without contrast. Radiation optimization: All CT scans at this facility use at least one of these dose optimization techniques: automated exposure control; mA and/or kV adjustment per patient size (includes targeted exams where dose is matched to clinical indication); or iterative reconstruction. COMPARISON: CR No relevant prior studies available. These thank you RADIATION DOSE METRICS: Total DLP (mGy-cm): 1113.01 FINDINGS: Lungs: The lung bases are clear. Liver: Unremarkable. Gallbladder and bile ducts: The gallbladder is contracted. Possible mild gallbladder wall thickening, difficult to be certain due to the contracted state of the gallbladder. No visible gallstones by CT. Ultrasound could be more sensitive for detecting gallstones, if clinically needed . No biliary tree dilation. Pancreas: Unremarkable. Spleen: Unremarkable. Adrenals: Unremarkable. Kidneys and ureters: Moderate right periureteric stranding. Suspect mild right ureteral wall thickening. Mild right hydronephrosis and hydroureter. No definite ureteral calculus is identified. I suspect that these findings may represent right ureteritis/pyelonephritis. Other possible etiologies for this appearance might include a recently passed or radiolucent right ureteral calculus. Please correlate clinically. No perinephric fluid. No definite/visible intrarenal calculus. The left kidney appears essentially unremarkable. Stomach and bowel: There are no CT findings to strongly suggest diverticulitis. Appendix: The appendix is visualized and appears normal. Intraperitoneal space: No free air, ascites, or bowel distention. Vasculature: No evidence for abdominal aortic aneurysm. Lymph nodes: No retroperitoneal adenopathy. Bladder: Mild to moderate diffuse urinary bladder wall thickening. While nonspecific, this could indicate evidence for cystitis. Please correlate clinically. No visible calculus in the urinary bladder. Reproductive: The right ovary contains a 16-18 mm dominant follicle versus very small cyst. Significance uncertain/unlikely due to relatively small size. No significant cul-de-sac fluid. Bones/joints: No significant acute finding. Soft tissues: No significant acute finding. CT/CT kidney stone [id number] IMPRESSION: 1. Findings suspicious for right ureteritis/pyelonephritis. A recently passed right ureteral calculus is another possibility. Please see additional details/discussion above. 2. Suspected urinary bladder wall thickening, possibly secondary to cystitis. 3. Possible mild gallbladder wall thickening, no visible gallstones by CT. 4. Normal appendix. 5. The right ovary contains a 16-18 mm dominant follicle versus very small cyst. Significance uncertain/unlikely due to relatively small size. No significant cul-de-sac fluid. 6. Other findings discussed above. Radiation Dose CTDIVOL = (mGy): DLP = 1113.01 (mGy-cm) Dictated By: Caden Biswas MD Signed By: Caden Biswas MD Signed Date/Time: 10/26/19332 DD/ 1 Discharge Plan Discharge Patient Disposition: Home, Self-Care Clinical Impression: Pyelonephritis Condition: Stable Prescriptions: New hydrocodone-acetaminophen 5-325 mg tablet 1 tab PO Q6H PRN (Reason: pain) Qty: 15 RF: 0 Cipro 500 mg tablet 500 mg PO Q12H Qty: 14 RF: 0 No Action sertraline [Zoloft] 50 mg tablet 50 mg PO DAILY RF: 0 metoprolol tartrate 25 mg tablet 50 mg PO BID Qty: 120 RF: 1 ondansetron 4 mg tablet,disintegrating 4 mg PO Q8H PRN (Reason: nausea and vomiting) Qty: 14 RF: 0 buspirone 5 mg tablet 5 mg PO BID RF: 0 Discharge Orders: Discharge Order (Routine); Ordered 10/26/19 Ordered By: Ana M Galeano Referrals: Rashad Stockton MD [Primary Care Provider] - Patient Instructions: Acute Pyelonephritis (ED), Pyelonephritis Activity Restrictions/Additional Instructions: As discussed you can take the pain medications every 4-6 hours as needed for pain. You have Zofran to help with the nausea. Please begin your antibiotics immediately. Return to the emergency department for worsening pain, vomiting/inability to keep down your antibiotics, fevers, generally feeling ill, or any other concerns you may have. Hope you to feel better soon. Discharge Date/Time: 10/26/19 04:04 Coding Level of Care Code ED Bagging Machine Operator for Mina Fwd Exam Expanded Problem Focused
[2019-10-26] MEDS: ketorolac 60 mg/2 mL INJ 30 MG IVP (01:51)
[2019-10-26] MEDS: sodium chloride 0.9% 1,000 ML 999 ML IV (01:52)
[2019-10-26] MEDS: ondansetron 2 mg/ML SDV 2 mL 4 MG IVP (01:52)
[2019-10-26 01:54] VITALS: BP 141/103; PULSE 65; RESP 18; O2SAT 98
[2019-10-26 02:27] LABS: Basophils % 0.3 %; Eosinophils # 0.1 10^3/uL (0.0-0.8); Eosinophils % 1.1 %; Hematocrit 38.9 % (37.0-47.0); Hemoglobin 12.4 g/dL (11.5-15.3); Lymphocytes # 2.9 10^3/uL (0.8-4.8); Lymphocytes % 38.2 %; Mean Corpuscular HGB Conc 31.9 g/dL (30.0-36.0); Mean Corpuscular Hemoglobin 28.6 pg (28.0-34.0); Mean Corpuscular Volume 89.6 fL (81-99); Monocytes # 0.5 10^3/uL (0.2-0.9); Monocytes % 7.2 %; Neutrophils % 52.9 %; Nucleated Red Blood Cells % 0 %; Platelet Count 271 10^3/cmm (130-400); Red Blood Count 4.34 10^6/uL (4.1-5.3); Red Cell Distribution Width 14.2 % (12.1-15.1); White Blood Count 7.5 10^3/uL (4.0-10.0)
[2019-10-26 02:38] LABS: Add Urine Microscopic? YES; Bilirubin Urine Neg (NEGATIVE); Blood Urine 3+ (Negative); Glucose Urine UA Norm (Normal); Ketones Urine Negative (Negative); Leukocyte Esterase Urine 2+ (Negative); Nitrate Urine Negative (Negative); Protein Urine Neg (Negative); RBC Urine 0-4 /hpf (0-2); Squamous Epithelial Cell Urine 0-4 (0-5); Urine Appearance SL Hazy (CLEAR); Urine Color Yellow (Yellow); Urobilinogen Urine Norm (Negative); WBC Urine >100 /hpf (0-5); pH Urine 6 (5-7)
[2019-10-26 02:39] LABS: Add Urine Culture? Yes; Bacteria Urine 1+
[2019-10-26 02:42] LABS: Alanine Aminotransferase 15 U/L (0-33); Alkaline Phosphatase 98 IU/L (35-105); Anion Gap 17.5 (5-19); Aspartate Amino Transferase 20 U/L (0-32); Blood Urea Nitrogen 16 mg/dL (6-20); Carbon Dioxide 20 mmol/L (22-29); Chloride 105 mmol/L (98-107); Globulin 3.1 g/dL (1.3-4.6); Glomerular Filtration Rate 100.4 mL/min (90-130); Glucose 101 mg/dL (65-115); Osmolality Calculated 282 mOsm/kg (285-295); Potassium 4.5 mmol/L (3.5-5.1); Sodium 138 mmol/L (136-145); Total Bilirubin 0.2 mg/dL (0.15-1.2); Total Protein 7.1 g/dL (6.6-8.7)
[2019-10-26 03:18] VITALS: RESP 20
[2019-10-26] MEDS: morphine 4 mg/mL SDV 1 mL IVP (03:18)
[2019-10-26] MEDS: cefTRIAXone 1,000 MG in sodium chloride 0.9% (plus) 50 ML 100 MG IV (03:19)
[2019-10-26] MEDS: HYDROcodone-acetaminophen 5-325 mg Tablet 2 TAB PO (03:20)
[2019-10-26 03:23] VITALS: BP 116/58; PULSE 89; RESP 20; O2SAT 99
[2019-10-26 03:58] VITALS: BP 137/63; PULSE 88; RESP 16; TEMP 36.4; O2SAT 98
== END 2019-10-26 04:04 | disposition home or self-care (01) ==
PROVIDERS: Emergency Provider Physician Assistant; PCP Family Medicine
DX: N12 Tubulo-interstitial nephritis, not specified as acute or chronic (principal); F17.210 Nicotine dependence, cigarettes, uncomplicated
CPT/HCPCS: 12345; 36415; 74176; 80053; 81001; 85025; 87077; 87086; 87186; 96365; 96375; 99283; J0696; J1885; J2270; J2405; J7030

== ENCOUNTER → 2019-11-30 14:31 | Outpatient (BNVA) | payer OTHER, SELFPAY | PROVIDERS: PCP Family Medicine; Visit Provider Podiatrist Foot & Ankle Surgery | DX: M79.672 Pain in left foot (principal) | CPT/HCPCS: 73630 ==

== ENCOUNTER → 2020-01-04 13:00 | Outpatient (BNVA) | payer OTHER, SELFPAY | PROVIDERS: PCP Internal Medicine; Visit Provider Obstetrics & Gynecology | DX: Z01.812 Encounter for preprocedural laboratory examination (principal) | CPT/HCPCS: 81025 ==

== ENCOUNTER → 2020-01-16 12:24 | Outpatient (BNVA) | payer OTHER, SELFPAY | PROVIDERS: PCP Internal Medicine; Visit Provider Internal Medicine | DX: Z11.59 Encounter for screening for other viral diseases (principal) | CPT/HCPCS: 87635 ==

== ENCOUNTER 2020-02-01 13:38 | Outpatient (CLI) | payer OTHER, SELFPAY | END 2020-02-01 13:39 | disposition home or self-care (01) | LOC: SPT 13:38 | PROVIDERS: PCP Internal Medicine; Visit Provider Podiatrist Foot & Ankle Surgery | DX: Z47.89 Encounter for other orthopedic aftercare (principal); M21.612 Bunion of left foot; M21.622 Bunionette of left foot; M25.372 Other instability, left ankle | CPT/HCPCS: L3030 ==

== ENCOUNTER → 2020-02-08 15:43 | Outpatient (BNVA) | payer OTHER, SELFPAY | PROVIDERS: PCP Internal Medicine; Visit Provider Internal Medicine | DX: E87.6 Hypokalemia (principal); N93.9 Abnormal uterine and vaginal bleeding, unspecified; R00.0 Tachycardia, unspecified; F41.1 Generalized anxiety disorder | CPT/HCPCS: 80048; 83550; 84443; 85025 ==

== ENCOUNTER 2020-03-15 10:31 | Outpatient (CLI) | payer OTHER, SELFPAY ==
[2020-03-15 11:16] LABS: Bilirubin Urine Neg (Negative); Blood Urine Neg (Negative); Glucose Urine UA Norm (Normal); Ketones Urine Negative (Negative); Leukocyte Esterase Urine Negative (Negative); Nitrate Urine Negative (Negative); Protein Urine Neg (Negative); Urine Appearance Clear (CLEAR); Urine Color Yellow (Yellow); Urobilinogen Urine Neg (Negative); pH Urine 5 (5-7)
[2020-03-15 11:17] LABS: Add Urine Culture? No
== END 2020-03-15 10:32 | disposition home or self-care (01) ==
PROVIDERS: PCP Internal Medicine; Visit Provider Nurse Practitioner Family
DX: R30.0 Dysuria (principal)
CPT/HCPCS: 81001

== ENCOUNTER → 2020-03-19 17:05 | Outpatient (BNVA) | payer OTHER, SELFPAY | PROVIDERS: PCP Internal Medicine; Visit Provider Podiatrist Foot & Ankle Surgery | DX: Z01.812 Encounter for preprocedural laboratory examination (principal); Z20.828 Contact with and (suspected) exposure to other viral communicable diseases | CPT/HCPCS: 87635 ==

== ENCOUNTER 2020-03-23 06:31 | Day surgery (SDC) | payer OTHER, SELFPAY ==
--- NOTE | 2020-03-23 | SCC_ITS ---
Procedure Done: Bunionectomy [place] [id number] 28 seconds of fluoroscopic guidance, for a cumulative dose of 0.4 mGy, was provided to Dr. Harkins by the radiology department. C-arm images of the LEFT foot were saved for the patient's permanent record. [facility]
[2020-03-23 05:42] VITALS: BP 133/80; PULSE 77; RESP 18; TEMP 36.2; O2SAT 97
[2020-03-23 05:56] LABS: OR HCG Qualitative Urine Negative (Negative)
[2020-03-23] MEDS: sodium chloride 0.9% 1,000 ML 30 ML IV (05:58)
[2020-03-23] MEDS: midazolam 1 mg/mL INJ 5 ML 5 MG IVP (06:30)
--- NOTE | 2020-03-23 06:48 | W.PM.OPSUD ---
Surgery/Procedure H&P Update DATE OF PROCEDURE: March 23, 2020 DATE H&P PERFORMED: 03/19/20 H&P UPDATE INFORMATION: I have reviewed H&P completed within last 30 days, I have examined patient prior to procedure, No changes to prior documentation and H&P is in [facility] EMR on date indicated PREOP DIAGNOSIS: Request for sterilization PLANNED PROCEDURE: Operation Date: 03/23/20 07:00 Proposed Procedures p Bunionectomy [place] 65691 60077 M21.622 M21.612(Not Applicable) - Trey Harkins DPM s Dylan Osteotomy Left foot(Left) - Trey Harkins DPM
--- NOTE | 2020-03-23 06:52 | ANES.PREANE2 ---
Pre-Anesthetic Assessment Pre-Anesthetic Assessment: Height/Weight: Height 1.63 m Weight 79.379 kg Temp Pulse Resp BP Pulse Ox 97.2 F L 77 18 133/80 97 03/23/20 05:42 03/23/20 05:42 03/23/20 05:42 03/23/20 05:42 03/23/20 05:42 Preop Diagnosis: Request for sterilization Proposed Procedure: Operation Date: 03/23/20 07:00 Proposed Procedures p Bunionectomy [place] [id number] 94674 M21.622 M21.612(Not Applicable) - Trey Harkins DPM s Dylan Osteotomy Left foot(Left) - Trey Harkins DPM Familial anesthetic complications: NOne Was Beta Brody taken within 24 hours: Yes Last intake: Intake Last Liquid Date 03/22/20 Last Liquid Time 20:00 Last Solid Date 03/22/20 Last Solid Time 20:00 Social: Social History: Tobacco and No alcohol Exam: Pre-Anes Outpt Exam: alert, oriented x 3, clear to auscultation bilaterally and regular rate & rhythm Airway: Cervical ROM: WNL MP: 2 Dentition: Full CV/HEM: Comments: tachycardia (HR in 240s at times) Anesthetic Plan: ASA status: 2 Anesthesia: General and Regional (specify below) Risk of > 500 ml blood loss (7ml/kg in children): No Meds/Allergies Current Medications: Current Medications Generic Name Dose Route Start Last Admin Trade Name Freq PRN Reason Stop Dose Admin Sodium Chloride 1,000 mls @ 30 ml s/hr 03/23/20 05:45 03/23/20 05:58 Sodium Chloride 0.9% IV 03/24/20 05:44 30 mls/hr .Q24H [place] Administration PFSH Anesthesia PFSH: Medical History Anxiety and depression -Was on Celexa prior to the in 2018 and self discontinued this during the and her symptoms are well-controlled with this. Does not have a therapist. -Symptoms are controlled on BuSpar and Zoloft during the and she would like to continue this as well Heartburn Diagnosed with esophagitis and gastritis on endoscopy done in February 2017. This was performed by Dr. Pal and she was taking Prilosec at the start of the . Inappropriate sinus tachycardia ---EP dr in [facility]--Dr. Dickinson; does not see anyone locally. EP study done, but no cardiac ablation; managed with diltiazem and metoprolol prior to No pertinent past medical history Denies diabetes, asthma, seizures, DVT/PE, hypertension Surgical History H/O laparoscopy (08/03/08) 08/03/2008--> done for chronic pelvic pain by Dr. Singleton. Operative findings showed removal of hemoperitoneum with fulguration of endometriotic lesions in the cul-de-sac biopsy. Fallopian tubes looked normal. Biopsy of the cul-de-sac lesions show abnormal endometrial glands. Endometrial biopsy was performed at the same time which showed mild proliferation. (Records are scanned into the all scripts ) H/O right wrist surgery (~03/2015) Done for ganglion cyst at [facility] Status post tubal ligation 09/15/2019--- laparoscopic bilateral total salpingectomy for sterilization performed by Dr. Paz at [facility]. Pathology showed benign fallopian tubes bilaterally with lumens. Family History Grandfather Heart disease Paternal; at age 36 of [place] Father Hypertension Family/Other Patient denies medical problems She denies family history of DVT/PE, breast, cervical, uterine, ovarian, colon cancer. Denies family history of Cervical cancer Colon cancer Ovarian cancer DVT (deep venous thrombosis) Breast cancer Pulmonary embolism Uterine cancer Social History Smoking and tobacco status: current every day smoker cigarettes Alcohol intake: current Alcohol intake frequency: holidays/special occasions only Marital status: Number of children: 3 History of recent travel: No Additional social history: - Tobacco Use: Started smoking at the age of 13 and smoked 1 pack of cigarettes a day at the most. Has been cutting down since she found out she is and currently smokes 6 cigarettes daily. Drug Use: Denies Alcohol Use: She does drink two beers weekly on average. None since she found out she was . 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
--- NOTE | 2020-03-23 06:52 | ANES.PROC ---
Anesthesia Procedures Procedure/Date: 03/23/20 Nerve Block ^: Nerve Block 1: Main Anesthesia: general anesthesia Time Out Performed: Yes Consent: requested by attending/covering physician, from patient, risks and benefits reviewed and patient agrees to proceed Nerve block location: popliteal (L) Anesthesia monitors applied: pulse oximetry, EKG, BP cuff and oxygen Nerve block position: semi sitting Anesthetic Used: ropivicaine 0.5% and with decadron (4 mg) Amount of anesthesia used (mL): 30 Ultrasound used to: recognize landmarks Nerve Stimulator Used?: No Interscalene/Femoral BLK: 4 stimuplex 21 g needle used for position and inplane approach, visualize local anesthetic spread and no vascular puncture identified Injection: neg aspiration of heme and paresthesia +/- Patient Tolerated Procedure: well and no complications Complications: none
[2020-03-23] MEDS: clindamycin 600 MG/50 ML PREMIX 999 MG IV (07:00)
[2020-03-23 09:23] VITALS: BP 103/54; PULSE 75; RESP 18; TEMP 36.3; O2SAT 98
--- NOTE | 2020-03-23 09:27 | XR_ITS ---
WS: [id number] Exam: XR foot LT min 3V* [id number] Date/Time of Exam: 03/23/2020 9:27 AM Reason For Exam: post op Comparison 11/30/2019. There is an osteotomy involving the distal fifth metatarsal with internal fixator. There is also an o steotomy involving the proximal phalanx of the great toe with a bridging stable. There is plate and s crew fixation of the first proximal metatarsal cuneiform articulation. No other postoperative changes are seen. An immobilizer stabilizes the foot and ankle.
--- NOTE | 2020-03-23 09:28 | PM.OP ---
Operative Report Date of procedure: March 23, 2020 Pre-op Diagnosis: Bunion deformity, hallux valgus and tailor's bunion left lower extremity. Pre-op Diagnosis: Post-op diagnosis: same Post-op Diagnosis: Procedure Done: Bunionectomy Lapidus Dylan osteotomy, tailor's bunionette of the left lower extremity. CPT codes 54247, 36718 and 64425 Implants: Right medical dart fire 4.0 x 24 mm headed screw in and out, Butler medical dart fire 4.0 x 32 mm headed screw Ortholoc Lapidus plate standard left. 3.5 mm x 18 mm locking screw, 3.5 mm x 20 mm locking screw, 3.5 mm x 24 mm locking screw, 3.5 mm x 26 mm locking screw, 3.5 mm x 22 mm nonlocking screw. Fuse force 10 mm x 2 mm stable, MIS bunionette small implant. Specimens removed/disposition: No Pathology: none sent Surgeon: Trey Harkins DPM Anesthesia: MAC Estimated blood loss: 10mL Tourniquet time: 114 min Urine output: None Complications: None Findings: None Condition: stable Disposition: PACU Procedure: Under mild sedation the patient was brought to the operating room and placed on the operating table in supine position. A timeout was performed. Anesthesia administered by the anesthesia service. Local anesthesia injected by myself consisting of 30 cc of one-to-one mixture 1% lidocaine 0.5% Marcaine plain and a left ankle block fashion. Well-padded pneumatic tourniquet applied to the left ankle. Left lower extremity was scrubbed, prepped and draped utilizing normal aseptic technique. Left foot was examined a weighted with an Esmarch bandage and a tourniquet was inflated to 250 mmHg. Attention was directed to the dorsal medial aspect of the first metatarsal phalangeal joint where a linear longitudinal incision was made medial and parallel to the extensor hallucis longus tendon, an incision was made with #15 blade and dissection carried down through subcutaneous tissue to the layer of the periosteum utilizing blunt and sharp technique, linear capsulotomy was performed and the head of the first metatarsal was exposed this was transected utilizing a sagittal saw and passed from operative field. Dissection was carried down distally to the medial aspect of the proximal phalanx. Attention was then directed to the dorsum of the left foot where a linear longitudinal incision was made at the central aspect of the distal second metatarsal at the metaphyseal flare and blunt dissection carried down to the metatarsal with extensor tendons retracted medially. A lateral lease was performed through this incision with release of the abductor tendon sharply with a 15 blade utilizing a J stroke. Attention was then directed to the first tarsometatarsal joint where at the dorsal medial aspect a linear longitudinal incision was made with #15 blade through skin and blunt and sharp dissection carried down to periosteum the medial marginal vein was encountered this was ligated and tied off with 3-0 Vicryl. A periosteal incision was made revealing the articular surface of the distal medial cuneiform and first metatarsal bases were denuded of their articular surface utilizing curettage this was passed from operative field followed by subchondral drilling and fishtailing to prepare for arthrodesis. A jig was utilized at the first metatarsal head and second metatarsal with K wire inserted from medial to lateral within the first metatarsal head of the left foot this was derotated and intermetatarsal angle reduced near neutral/0 degrees this was confirmed with intraoperative fluoroscopy. Next utilizing standard AO technique a [employer] dart fire 4.0 x 32 mm headed screw was inserted across the arthrodesis site from the plantar distal aspect of the first metatarsal and a proximal dorsal approach to the medial cuneiform. Excellent bony apposition and compression noted at the arthrodesis site. Next a standard Lapidus plate was placed in contoured to the medial aspect of the first metatarsal cuneiform joint with locking and nonlocking screws working from proximal to distal with excellent bony apposition and compression noted. Incision site was flushed with copious amount of sterile saline solution, temporary fixation removed. Attention directed to the medial aspect of the proximal phalanx for Whitman osteotomy was performed with a sagittal saw and fixated with a 10 mm compression staple with excellent bony apposition and compression placement and reduction confirmed utilizing intraoperative fluoroscopy noted to be excellent in all 3 cardinal planes both at the Lapidus site and Dylan osteotomy with the first ray and a anatomically corrected position. Incisions were flushed with saline solution attention was then directed to the lateral aspect of the fifth metatarsophalangeal joint where a linear longitudinal incision was made with #15 blade with dissection carried down to the joint laterally utilizing blunt and sharp technique care was taken to retract and preserve neurovascular and tendinous structures. Bleeders were ligated and cauterized as necessary. Linear periosteal incision was performed bump was excised utilizing a sagittal saw at the lateral aspect of the fifth metatarsal followed by a transverse osteotomy in the head of the fifth metatarsal translated medially and fixated with intramedullary implant and locking screw into the fifth metatarsal head with excellent correction and stable construct appreciated. Incision site was flushed with saline solution once again surgical sites were inspected utilizing intraoperative fluoroscopy. Incision site at the left lateral foot closed utilizing 3-0 Vicryl and 4-0 nylon. Incision site at the first tarsometatarsal arthrodesis site as well as at the first metatarsophalangeal joint closed utilizing 3-0 Vicryl, 4-0 Vicryl and 5-0 Monocryl. Incision sites were dressed with Adaptic, benzoin and Steri-Strips medially, sterile 4 x 4's, Kerlix and Ric wrap followed by application of cam boot. Tourniquet was deflated and a prompt hyperemic response was noted to the distal digits of the left foot. Patient tolerated procedure well and was transferred to the PACU with vital signs stable and vascular status intact. Following a period of postoperative monitoring she will be discharged home is to remain strict nonweightbearing to the left lower extremity was prescribed Percocet 10/325 mg to be taken judiciously as needed for pain is to contact me with any postoperative questions or concerns was provided my cell phone number has follow-up scheduled in podiatry clinic for nursing visit and first dressing change March 28, 2020 patient has appointment card for date and time.
[2020-03-23] MEDS: ketorolac 30 mg/mL INJ IVP (09:47)
[2020-03-23 10:00] VITALS: BP 99/66; PULSE 75; RESP 18; O2SAT 93
--- NOTE | 2020-03-23 18:38 | ANE.PACU2 ---
Inpatient post-anesthesia follow up: Airway intact: Yes Vital signs: Temperature 97.3 F Pulse Rate 75 Respiratory Rate 18 Blood Pressure 99/66 Pulse Oximetry 93 Oxygen Delivery Me thod Room Air Oxygen Flow Rate Fraction of Inspir ed Oxygen Hydration adequate: Yes Nausea and vomiting: No Pain level: 1 Mental status: Baseline
== END 2020-03-23 10:20 | disposition home or self-care (01) ==
PROVIDERS: Anesthesiology; PCP Internal Medicine; Visit Provider Podiatrist Foot & Ankle Surgery
PROC: (CPT 28297; principal; 2020-03-23 07:00)
PROC: (CPT 28298; 2020-03-23 07:00)
DX: M21.612 Bunion of left foot (principal); M20.12 Hallux valgus (acquired), left foot; M21.622 Bunionette of left foot; F17.210 Nicotine dependence, cigarettes, uncomplicated
CPT/HCPCS: 28297; 28308; 28310; 12345; 64450; 73630; 76000; 76942; 84703; 96374; C1713; C9290; C9359; J1100; J1885; J2250; J2405; J2704; J2795; J3010; J3490; J7030

== ENCOUNTER → 2020-04-05 09:30 | Outpatient (BNVA) | payer OTHER, SELFPAY | PROVIDERS: PCP Internal Medicine; Visit Provider Podiatrist Foot & Ankle Surgery | DX: M25.372 Other instability, left ankle (principal); M21.612 Bunion of left foot; M21.622 Bunionette of left foot | CPT/HCPCS: 73630 ==

== ENCOUNTER → 2020-04-17 10:32 | Outpatient (BNVA) | payer OTHER, SELFPAY | PROVIDERS: PCP Internal Medicine; Visit Provider Family Medicine | DX: Z20.828 Contact with and (suspected) exposure to other viral communicable diseases (principal) | CPT/HCPCS: 87635 ==

== ENCOUNTER → 2020-05-01 11:20 | Outpatient (BNVA) | payer OTHER, SELFPAY | PROVIDERS: PCP Internal Medicine; Visit Provider Podiatrist Foot & Ankle Surgery | DX: Z98.890 Other specified postprocedural states (principal) | CPT/HCPCS: 73630 ==

== ENCOUNTER → 2020-05-15 08:00 | Outpatient (BNVA) | payer OTHER, SELFPAY | PROVIDERS: PCP Internal Medicine; Visit Provider Podiatrist Foot & Ankle Surgery | DX: Z98.890 Other specified postprocedural states (principal); M21.619 Bunion of unspecified foot | CPT/HCPCS: 73630 ==

== ENCOUNTER → 2020-05-28 09:12 | Outpatient (BNVA) | payer OTHER, SELFPAY | PROVIDERS: PCP Internal Medicine; Visit Provider Podiatrist Foot & Ankle Surgery | DX: Z98.890 Other specified postprocedural states (principal); M21.619 Bunion of unspecified foot | CPT/HCPCS: 73630 ==

== ENCOUNTER → 2020-06-13 10:23 | Outpatient (BNVA) | payer OTHER, SELFPAY | PROVIDERS: PCP Internal Medicine; Visit Provider Podiatrist Foot & Ankle Surgery | DX: Z47.89 Encounter for other orthopedic aftercare (principal); M21.619 Bunion of unspecified foot | CPT/HCPCS: 73630 ==

== ENCOUNTER 2020-06-29 16:18 | Emergency (ER) | payer OTHER, SELFPAY ==
[2020-06-29 16:42] VITALS: BP 148/82; PULSE 61; RESP 15; TEMP 36.8; O2SAT 98; BMI 28.3
--- NOTE | 2020-06-29 17:00 | US_ITS ---
WS: [id number] ULTRASOUND ABDOMEN LIMITED CLINICAL INFORMATION: RUQ abd pain COMPARISON: None. FINDINGS: Liver Size: Normal. Craniocaudal length: 17.5 cm. Echogenicity: Normal. Surface nodularity: None. Mass (size and location): None. Normal hepatopedal flow in the main portal vein. Bile ducts Intrahepatic ducts: Normal. Common bile duct diameter: 0.3 cm. Gallbladder Normal. Gallstones: None. Gallbladder sludge: None. Gallbladder wall thickening: None. Pericholecystic fluid: None. Sonographic Lopez sign: Absent. Pancreas Normal as visualized. Right kidney: Normal. Hydronephrosis: None. Size: 11.1 cm x 4.4 cm x 4.7 cm. Abdominal aorta and IVC Visualized portions are normal. Ascites: None. US/US gall bladder [id number] IMPRESSION: Normal abdominal ultrasound
[2020-06-29 18:41] VITALS: BP 142/100; PULSE 71; RESP 18; O2SAT 98
[2020-06-29 18:53] LABS: Basophils % 0.4 %; Eosinophils # 0.1 10^3/uL (0.0-0.8); Eosinophils % 1.2 %; Hematocrit 45.8 % (37.0-47.0); Hemoglobin 14.3 g/dL (11.5-15.3); Lymphocytes # 2.7 10^3/uL (0.8-4.8); Lymphocytes % 35.4 %; Mean Corpuscular HGB Conc 31.2 g/dL (30.0-36.0); Mean Corpuscular Hemoglobin 28.9 pg (28.0-34.0); Mean Corpuscular Volume 92.7 fL (81-99); Mean Platelet Volume 10.6 fL (7.4-10.4); Monocytes # 0.6 10^3/uL (0.2-0.9); Monocytes % 7.3 %; Neutrophils # 4.17 10^3/uL (1.8-7.7); Neutrophils % 55.4 %; Nucleated Red Blood Cells % 0 %; Platelet Count 289 10^3/cmm (130-400); Red Blood Count 4.94 10^6/uL (4.1-5.3); Red Cell Distribution Width 12.8 % (12.1-15.1); White Blood Count 7.5 10^3/uL (4.0-10.0)
[2020-06-29 19:02] LABS: Add Urine Microscopic? NO
--- NOTE | 2020-06-29 19:19 | CTR_ITS ---
PROCEDURE INFORMATION: Exam: CT Abdomen And Pelvis With Contrast Exam date and time: 06/29/2020 7:31 PM Age: 30 years old Clinical indication: Abdominal pain; Localized; Right; Prior surgery; Surgery type: Tubal; Patient HX: Ruq pain with nausea TECHNIQUE: Imaging protocol: Computed tomography of the abdomen and pelvis with contrast. Sagittal and coronal reformatted images were created and reviewed. Radiation optimization: All CT scans at this facility use at least one of these dose optimization techniques: automated exposure control; mA and/or kV adjustment per patient size (includes targeted exams where dose is matched to clinical indication); or iterative reconstruction. Contrast material: OMNI 300; Contrast volume: 95 ml; Contrast route: INTRAVENOUS (IV); COMPARISON: CT kidney stone [id number] 10/26/2019 2:30 AM RADIATION DOSE METRICS: Total DLP (mGy-cm): 713.9 FINDINGS: Lungs: Visualized lungs are clear. Pleural spaces: No pleural effusion. Heart: Visualized portions of the heart are unremarkable. Liver: The liver is unremarkable. Gallbladder and bile ducts: The gallbladder is unremarkable. No biliary ductal dilatation. Pancreas: The pancreas is unremarkable. No pancreatic ductal dilatation. Spleen: The spleen is unremarkable. Adrenal glands: The right and left adrenal glands are unremarkable. Kidneys and ureters: The right and left kidneys are unremarkable. The right and left ureters are unremarkable. Stomach and bowel: No obstruction. No mucosal thickening. Appendix: The appendix is visualized and is unremarkable. No findings to suggest acute appendicitis. Intraperitoneal space: No free intraperitoneal air. No ascites. No loculated fluid collections to suggest an abscess. Vasculature: No evidence for aortic aneurysm or aortic dissection. Hepatic veins, portal veins, splenic vein, and SMV are patent. Lymph nodes: No lymphadenopathy. Urinary bladder: Unremarkable as visualized. Reproductive: There is an IUD in the endometrium of the uterus. The uterus is otherwise unremarkable. Multiple subcentimeter follicles in both right and left ovaries. Bones/joints: Bone island in the left femoral head. Soft tissues: Unremarkable. CT/CT abdomen pelvis w con* [id number] IMPRESSION: 1. No acute abnormality in the abdomen or pelvis. 2. Incidental/nonacute findings are listed in the report. Radiation Dose CTDIVOL = (mGy): DLP = 713.9 (mGy-cm)
[2020-06-29 19:21] LABS: Alanine Aminotransferase 12 U/L (0-33); Albumin Level 4.5 g/dL (3.5-5.2); Alkaline Phosphatase 93 IU/L (35-105); Anion Gap 13.9 (5-19); Aspartate Amino Transferase 12 U/L (0-32); Blood Urea Nitrogen 13 mg/dL (6-20); Calcium 9.1 mg/dL (8.5-10.5); Carbon Dioxide 23 mmol/L (22-29); Chloride 109 mmol/L (98-107); Globulin 3.1 g/dL (1.3-4.6); Glucose 86 mg/dL (65-115); Lipase 22 U/L (13-60); Osmolality Calculated 293 mOsm/kg (285-295); Potassium 3.9 mmol/L (3.5-5.1); Sodium 142 mmol/L (136-145); Total Bilirubin 0.2 mg/dL (0.15-1.2); Total Protein 7.6 g/dL (6.6-8.7)
[2020-06-29 19:29] LABS: Bilirubin Urine Neg (Negative); Blood Urine Neg (Negative); Glucose Urine UA Norm (Normal); Ketones Urine Negative (Negative); Leukocyte Esterase Urine Negative (Negative); Nitrate Urine Negative (Negative); Protein Urine Neg (Negative); Urine Appearance Clear (CLEAR); Urine Color Yellow (Yellow); Urobilinogen Urine Norm (Negative); pH Urine 6.5 (5-7)
[2020-06-29] MEDS: ondansetron 2 mg/ML SDV 2 mL 4 MG IVP (19:31)
[2020-06-29 19:32] VITALS: RESP 17; O2SAT 98
[2020-06-29] MEDS: HYDROmorphone 1 mg/mL INJ 1 mL IVP (19:32)
[2020-06-29] MEDS: ketorolac 30 mg/mL INJ IVP (19:34)
[2020-06-29 19:37] VITALS: BP 123/79; PULSE 70; RESP 17; O2SAT 97
[2020-06-29] MEDS: iohexol 300 mg/mL 100 mL Btl IV (20:01)
--- NOTE | 2020-06-29 20:30 | W.ED.ABDPA2 ---
HPI - Abdominal Pain General: Chief Complaint: Abdominal Pain Stated Complaint: RUQ ABD PAIN Time Seen by Provider: 06/29/20 18:33 History of Present Illness: HPI narrative: 30-year-old female presents with right upper quadrant pain today. She states it was decently sudden onset. She has had similar pains the past several months, but they usually last about an hour and go away, associated with meals, particularly fatty meals. Today the pain did not go away at home. She is significantly nauseated. She has not vomited. No blood in the stool. No fever. Her only belly surgery history is a tubal ligation. Pain is well localized. No urine symptoms or change in urine type or color. She does have a history of urinary tract infections in the past MD elicited complaint: abdominal pain Onset (ago): hour(s) Pain Consistency: constant Location: RUQ Severity: moderate Quality: stabbing Radiation: none Migration to: no migration Exacerbating factors: eating and movement Relieving factors: nothing Associated Symptoms: Reports change in stool character, loose stools and nausea; Denies belching, chills, dysuria, fever(s), hematochezia and vomiting Related Data: Date of Last Menstrual Period: 06/29/20 Review of Systems Const: Denies: fever(s) or chills Card: Denies: chest pain Resp: Denies: dyspnea, productive cough or non-productive cough GI: Reports: nausea and change in stool character; Denies: vomiting, belching or hematochezia : Denies: difficulty voiding, dysuria, urinary frequency or pelvic pain [facility] ED PFSH: Medical History (Updated 06/29/20 @ 21:06 by Ashok De La Cruz DO) Anxiety and depression -Was on Celexa prior to the in 2018 and self discontinued this during the and her symptoms are well-controlled with this. Does not have a therapist. -Symptoms are controlled on BuSpar and Zoloft during the and she would like to continue this as well Heartburn Diagnosed with esophagitis and gastritis on endoscopy done in February 2017. This was performed by Dr. Pal and she was taking Prilosec at the start of the . Inappropriate sinus tachycardia ---EP dr in [facility]--Dr. Dickinson; does not see anyone locally. EP study done, but no cardiac ablation; managed with diltiazem and metoprolol prior to No pertinent past medical history Denies diabetes, asthma, seizures, DVT/PE, hypertension Surgical History H/O laparoscopy (08/03/08) 08/03/2008--> done for chronic pelvic pain by Dr. Singleton. Operative findings showed removal of hemoperitoneum with fulguration of endometriotic lesions in the cul-de-sac biopsy. Fallopian tubes looked normal. Biopsy of the cul-de-sac lesions show abnormal endometrial glands. Endometrial biopsy was performed at the same time which showed mild proliferation. (Records are scanned into the all scripts ) H/O right wrist surgery (~03/2015) Done for ganglion cyst at [facility] in [place] Status post tubal ligation 09/15/2019--- laparoscopic bilateral total salpingectomy for sterilization performed by Dr. Paz at [facility]. Pathology showed benign fallopian tubes bilaterally with lumens. Family History Grandfather Heart disease Paternal; at age 36 of [place] Father Hypertension Family/Other Patient denies medical problems She denies family history of DVT/PE, breast, cervical, uterine, ovarian, colon cancer. Denies family history of Cervical cancer Colon cancer Ovarian cancer DVT (deep venous thrombosis) Breast cancer Pulmonary embolism Uterine cancer Social History Smoking and tobacco status: current every day smoker cigarettes Alcohol intake: current Alcohol intake frequency: holidays/special occasions only Marital status: Number of children: 3 History of recent travel: No Additional social history: - Tobacco Use: Started smoking at the age of 13 and smoked 1 pack of cigarettes a day at the most. Has been cutting down since she found out she is and currently smokes 6 cigarettes daily. Drug Use: Denies Alcohol Use: She does drink two beers weekly on average. None since she found out she was . 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 Female Reproductive History: Date of last menstrual period: 06/29/20 Physical Exam Const: GENERAL APPEARANCE: well developed ORIENTATION/CONSCIOUSNESS: Yes oriented to person, Yes oriented to place and Yes oriented to time HENMT: COMMON NORMALS: normocephalic, external ears normal and Normal external nose present HEAD & SCALP: normocephalic FACE & SINUS: normal facial exam NOSE: Normal external nose present EXTERNAL EAR: Yes external ears normal Eye: COMMON NORMALS: Equal, round and reactive pupils present, EOMs intact bilaterally and conjunctivae normal EYELID: eyelids normal CONJUNCTIVA: Yes conjunctivae normal PUPIL: Yes Equal, round and reactive pupils present Neck/C-Spine: GENERAL: No tracheal deviation Chest: COMMONS NORMALS: normal inspection of the chest CHEST: No tenderness Resp: COMMON NORMALS: clear to auscultation bilaterally EFFORT & INSPECTION: No tachypneic, No respiratory distress, No retractions, No uses accessory muscles and No tracheal deviation AUSCULTATION: clear to auscultation bilaterally, no rhonchi, no wheezes and lung sounds not diminished Cardio: COMMON NORMALS: regular rate and regular rhythm RATE: regular rate RHYTHM: regular rhythm HEART SOUNDS: no murmurs PERIPHERAL PULSES: radial pulses present GI: INSPECTION: No abdominal distension AUSCULTATION: No Hyperactive bowel sounds present and No Hypoactive bowel sounds present PALPATION: Yes Tenderness to palpation present (GI) Details: RUQ, No Guarding due to palpation present (GI) and No Rigid due to palpation PERCUSSION: no dullness to percussion and no tympanic to percussion Neuro: SENSORIUM/ORIENTATION: Yes oriented to person, Yes oriented to place and Yes oriented to time Psych: COMMON NORMALS: mental status grossly normal Skin: COMMON NORMALS: no rashes or lesions noted GENERAL SKIN EXAM: no rashes or lesions noted Course Vital Signs: Vital signs: Vital Signs Temperature 98.3 F 06/29/20 16:42 Pulse Rate 72 06/29/20 21:16 Respiratory Rate 18 06/29/20 21:16 Blood Pressure 154/95 06/29/20 21:16 Pulse Oximetry 98 06/29/20 21:16 MDM - Abdominal Pain MDM Narrative: Medical decision making narrative: Labs including urine are not remarkable. History sounds like biliary colic. Ultrasound gallbladder is normal. CT of the abdomen pelvis is nonacute. Lab Data: Labs: Lab Results 06/29/20 06/29/20 06/29/20 Range/Units 18:45 18:45 18:45 WBC 7.5 (4.0-10.0) 10^3/ uL RBC 4.94 (4.1-5.3) 10^6/u L Hgb 14.3 (11.5-15.3) g/dL Hct 45.8 (37.0-47.0) % MCV 92.7 (81-99) fL MCH 28.9 (28.0-34.0) pg MCHC 31.2 (30.0-36.0) g/dL RDW 12.8 (12.1-15.1) % Plt Count 289 (130-400) 10^3/c mm MPV 10.6 H (7.4-10.4) fL Neut % (Auto) 55.4 % Lymph % (Auto) 35.4 % Haakon % (Auto) 7.3 % Eos % (Auto) 1.2 % Baso % (Auto) 0.4 % Neut # (Auto) 4.17 (1.8-7.7) 10^3/u L Lymph # (Auto) 2.7 (0.8-4.8) 10^3/u L Haakon # (Auto) 0.6 (0.2-0.9) 10^3/u L Eos # (Auto) 0.1 (0.0-0.8) 10^3/u L Baso # (Auto) 0.0 (0.0-0.1) 10^3/u L Nucleated RBC % (a uto) 0 % Nucleated RBCs # 0.0 /100WBC Sodium 142 (136-145) mmol/L Potassium 3.9 (3.5-5.1) mmol/L Chloride 109 H (98-107) mmol/L Carbon Dioxide 23 (22-29) mmol/L Anion Gap 13.9 (5-19) BUN 13 (6-20) mg/dL Creatinine 0.6 (0.5-0.9) mg/dL GFR Calculation 119.0 (90-130) mL/min Glucose 86 (65-115) mg/dL Calculated Osmolal ity 293 (285-295) mOsm/k g Calcium 9.1 (8.5-10.5) mg/dL Total Bilirubin 0.2 (0.15-1.2) mg/dL AST 12 (0-32) U/L ALT 12 (0-33) U/L Alkaline Phosphata se 93 (35-105) IU/L C-Reactive Protein 1.0 (0.0-4.9) mg/L Total Protein 7.6 (6.6-8.7) g/dL Albumin 4.5 (3.5-5.2) g/dL Globulin 3.1 (1.3-4.6) g/dL Lipase 22 (13-60) U/L Urine Color (Yellow) Urine Appearance (CLEAR) Urine pH (5-7) Ur Specific Gravit y (1.005-1.030) Urine Protein (Negative) Urine Glucose (UA) (Normal) Urine Ketones (Negative) Urine Blood (Negative) Urine Nitrate (Negative) Urine Bilirubin (Negative) Urine Urobilinogen (Negative) mg/dL Ur Leukocyte Sondra ase (Negative) 06/29/20 Range/Units 18:56 WBC (4.0-10.0) 10^3/ uL RBC (4.1-5.3) 10^6/u L Hgb (11.5-15.3) g/dL Hct (37.0-47.0) % MCV (81-99) fL MCH (28.0-34.0) pg MCHC (30.0-36.0) g/dL RDW (12.1-15.1) % Plt Count (130-400) 10^3/c mm MPV (7.4-10.4) fL Neut % (Auto) % Lymph % (Auto) % Haakon % (Auto) % Eos % (Auto) % Baso % (Auto) % Neut # (Auto) (1.8-7.7) 10^3/u L Lymph # (Auto) (0.8-4.8) 10^3/u L Haakon # (Auto) (0.2-0.9) 10^3/u L Eos # (Auto) (0.0-0.8) 10^3/u L Baso # (Auto) (0.0-0.1) 10^3/u L Nucleated RBC % (a uto) % Nucleated RBCs # /100WBC Sodium (136-145) mmol/L Potassium (3.5-5.1) mmol/L Chloride (98-107) mmol/L Carbon Dioxide (22-29) mmol/L Anion Gap (5-19) BUN (6-20) mg/dL Creatinine (0.5-0.9) mg/dL GFR Calculation (90-130) mL/min Glucose (65-115) mg/dL Calculated Osmolal ity (285-295) mOsm/k g Calcium (8.5-10.5) mg/dL Total Bilirubin (0.15-1.2) mg/dL AST (0-32) U/L ALT (0-33) U/L Alkaline Phosphata se (35-105) IU/L C-Reactive Protein (0.0-4.9) mg/L Total Protein (6.6-8.7) g/dL Albumin (3.5-5.2) g/dL Globulin (1.3-4.6) g/dL Lipase (13-60) U/L Urine Color Yellow (Yellow) Urine Appearance Clear (CLEAR) Urine pH 6.5 (5-7) Ur Specific Gravit y 1.010 (1.005-1.030) Urine Protein Neg (Negative) Urine Glucose (UA) Norm (Normal) Urine Ketones Negative (Negative) Urine Blood Neg (Negative) Urine Nitrate Negative (Negative) Urine Bilirubin Neg (Negative) Urine Urobilinogen Norm (Negative) mg/dL Ur Leukocyte Sondra ase Negative (Negative) Discharge Plan Discharge Patient Disposition: Home Clinical Impression: Biliary colic Abdominal pain Qualifiers: Abdominal location: right upper quadrant Qualified Code(s): R10.11 - Right upper quadrant pain Condition: Stable Prescriptions: New ondansetron 4 mg film 4 mg PO DAILY PRN (Reason: nausea and vomiting) Qty: 10 RF: 0 Percocet 7.5-325 mg tablet 1 tab PO Q6H PRN (Reason: pain) Qty: 10 RF: 0 No Action (DME) crutch Misc See Rx Instructions .ROUTE .MEDSUPPLY Qty: 2 RF: 0 aspirin 81 mg tablet,chewable 81 mg PO DAILY RF: 0 vilazodone 20 mg tablet 20 mg PO DAILY Qty: 90 RF: 3 Mirena 20 mcg/24 hours (5 yrs) 52 mg intrauterine device 1 device INTRAUTERI .every 5 years Qty: 1 RF: 0 diltiazem HCl 240 mg capsule,extended release 24hr 240 mg PO DAILY Qty: 90 RF: 3 hydrocodone-acetaminophen [[place]] 5-325 mg tablet 1 tab PO Q6H PRN (Reason: pain) 7 Days Qty: 28 RF: 0 tizanidine 2 mg capsule 2 mg PO TID PRN (Reason: muscle spasticity) 4 Days Qty: 12 RF: 0 oxycodone-acetaminophen [Percocet] 7.5-325 mg tablet 1 tab PO Q4H PRN (Reason: pain) 7 Days Qty: 42 RF: 0 oxycodone-acetaminophen [Percocet] 7.5-325 mg tablet 1 tab PO Q4H PRN (Reason: pain) 7 Days Qty: 30 RF: 0 (DME) bone stimulator See Rx Instructions .ROUTE .MEDSUPPLY Qty: 1 RF: 0 hydrocodone-acetaminophen [[place]] 5-325 mg tablet 1 tab PO Q6H PRN (Reason: pain) 7 Days Qty: 28 RF: 0 Bystolic 5 mg tablet 5 mg PO DAILY Qty: 30 RF: 5 Percocet 10-325 mg tablet 1 tab PO Q4H PRN (Reason: pain) Qty: 30 RF: 0 Discharge Orders: Discharge ED (Routine); Ordered 06/29/20 Ordered By: Ashok De La Cruz Referrals: Leopoldo Pal MD [Primary Care Provider] - 4-7 days Discharge Diet: Advance as tolerated and Clear Liquid Discharge Activity: Increase activity as tolerated Patient Instructions: Biliary Colic (ED), Abdominal Pain (ED), Opioid Safety Activity Restrictions/Additional Instructions: Return for fever greater than 100, worsening pain despite treatment, vomiting liquids or medications, other concerning symptoms. Call to reschedule your HIDA scan on Thursday as directed. Coding Level of Care Code ED Chore Worker for Chg Fwd Exam Comprehensive
[2020-06-29 21:16] VITALS: BP 154/95; PULSE 72; RESP 18; O2SAT 98
[2020-06-29] MEDS: ondansetron 4 MG Tablet PO (21:16)
[2020-06-29] MEDS: oxyCODONE-APAP 5-325 mg Tablet 2 TAB PO (21:16)
[2020-06-29] MEDS: HYDROmorphone 1 mg/mL INJ 1 mL 0.5 MG IVP (21:17)
== END 2020-06-29 21:16 | disposition home or self-care (01) ==
PROVIDERS: Nurse Practitioner Family; Emergency Provider Emergency Medicine; PCP Internal Medicine
DX: R10.11 Right upper quadrant pain (principal); K80.50 Calculus of bile duct without cholangitis or cholecystitis without obstruction; Z79.82 Long term (current) use of aspirin; F17.210 Nicotine dependence, cigarettes, uncomplicated
CPT/HCPCS: 74177; 76705; 80053; 81003; 83690; 85025; 86140; 96374; 96375; 96376; 99283; J1170; J1885; J2405; Q0162; Q9967

== ENCOUNTER → 2020-07-04 14:16 | Outpatient (BNVA) | payer OTHER, SELFPAY | PROVIDERS: PCP Internal Medicine; Visit Provider Podiatrist Foot & Ankle Surgery | DX: Z98.890 Other specified postprocedural states (principal); M21.619 Bunion of unspecified foot; M96.0 Pseudarthrosis after fusion or arthrodesis | CPT/HCPCS: 73630 ==

== ENCOUNTER → 2020-07-25 08:52 | Outpatient (BNVA) | payer OTHER, SELFPAY | PROVIDERS: PCP Internal Medicine; Visit Provider Podiatrist Foot & Ankle Surgery | DX: Z98.890 Other specified postprocedural states (principal); M96.0 Pseudarthrosis after fusion or arthrodesis | CPT/HCPCS: 73630 ==

== ENCOUNTER → 2020-07-30 16:29 | Outpatient (BNVA) | payer OTHER, SELFPAY | PROVIDERS: PCP Internal Medicine; Visit Provider Podiatrist Foot & Ankle Surgery | DX: Z98.890 Other specified postprocedural states (principal); M96.0 Pseudarthrosis after fusion or arthrodesis | CPT/HCPCS: 87635 ==

== ENCOUNTER 2020-08-03 05:32 | Day surgery (SDC) | payer OTHER, SELFPAY ==
[2020-07-30 13:01] VITALS: BMI 27.9
[2020-08-03] VITALS (7 sets, daily range): BP systolic 109–133; BP diastolic 68–93; PULSE 80–95; RESP 16–18; TEMP 36.4–36.7; O2SAT 98–100
--- NOTE | 2020-08-03 | SCC_ITS ---
Procedure Done: Deep hardware removal, resection nonunion and revision of Lapidus bunionectomy all left foot. CPT codes 95688 and 36337 6 seconds of fluoroscopic guidance, for a cumulative dose of 0.11 mGy, was provided to Dr. Harkins by the radiology department. C-arm images of the LEFT foot were saved for the patient's permanent record. [facility]
[2020-08-03] MEDS: sodium chloride 0.9% 1,000 ML 30 ML IV (06:13)
--- NOTE | 2020-08-03 06:15 | W.PM.OPSUD ---
Surgery/Procedure H&P Update DATE OF PROCEDURE: August 03, 2020 DATE H&P PERFORMED: 07/25/20 H&P UPDATE INFORMATION: I have reviewed H&P completed within last 30 days, I have examined patient prior to procedure, No changes to prior documentation and H&P is in [facility] [place] on date indicated PREOP DIAGNOSIS: Nonunion left foot PLANNED PROCEDURE: Operation Date: 08/03/20 07:00 Proposed Procedures p Revision of Lapidus bunionectomyt [id number] M96.0(Left) - Trey Harkins DPM s deep Hardware Removal of left foot(Left) - Trey Harkins DPM
[2020-08-03] MEDS: midazolam 1 mg/mL INJ 5 ML 5 MG IVP (06:40)
--- NOTE | 2020-08-03 06:47 | P.ANESASSM_ITS ---
Pre-Anesthetic Assessment Pre-Anesthetic Assessment: Height/Weight: Height 1.63 m Weight 73.936 kg Temp Pulse Resp BP Pulse Ox 97.7 F 80 18 132/89 98 08/03/20 06:06 08/03/20 06:06 08/03/20 06:06 08/03/20 06:06 08/03/20 06:06 Preop Diagnosis: Nonunion left foot Proposed Procedure: Operation Date: 08/03/20 07:00 Proposed Procedures p Revision of Lapidus bunionectomyt 23849 [id number] M96.0(Left) - Trey Harkins DPM s deep Hardware Removal of left foot(Left) - Trey Harkins DPM Familial anesthetic complications: none Was Beta Brody taken within 24 hours: N/A Was Clonidine taken within 24 hours: N/A Last intake: Intake Last Liquid Date 08/02/20 Last Liquid Time 21:00 Last Solid Date 08/02/20 Last Solid Time 20:00 Social: Social History: No alcohol and No tobacco Exam: Pre-Anes Outpt Exam: alert, oriented x 3, clear to auscultation bilaterally and regular rate & rhythm Airway: Cervical ROM: WNL MP: 2 Dentition: Full CV/HEM: CV/HEM: Arrythmia (tachycardia) Anesthetic Plan: ASA status: 1 Anesthesia: General Risk of > 500 ml blood loss (7ml/kg in children): No Meds/Allergies Current Medications: Current Medications Generic Name Dose Route Start Last Admin Trade Name Freq PRN Reason Stop Dose Admin Sodium Chloride 1,000 mls @ 30 ml s/hr 08/03/20 05:45 08/03/20 06:13 Sodium Chloride 0.9% IV 08/04/20 05:44 30 mls/hr .Q24H [place] Administration PFSH Anesthesia PFSH: Medical History Anxiety and depression -Was on Celexa prior to the in 2018 and self discontinued this during the and her symptoms are well-controlled with this. Does not have a therapist. -Symptoms are controlled on BuSpar and Zoloft during the and she would like to continue this as well Heartburn Diagnosed with esophagitis and gastritis on endoscopy done in February 2017. This was performed by Dr. Pal and she was taking Prilosec at the start of the . Inappropriate sinus tachycardia ---EP dr in [facility]--Dr. Dickinson; does not see anyone locally. EP study done, but no cardiac ablation; managed with diltiazem and metoprolol prior to No pertinent past medical history Denies diabetes, asthma, seizures, DVT/PE, hypertension Surgical History (Updated 07/30/20 @ 11:26 by Melody Conner RN) H/O laparoscopy (08/03/08) 08/03/2008--> done for chronic pelvic pain by Dr. Singleton. Operative findings showed removal of hemoperitoneum with fulguration of endometriotic lesions in the cul-de-sac biopsy. Fallopian tubes looked normal. Biopsy of the cul-de-sac lesions show abnormal endometrial glands. Endometrial biopsy was performed at the same time which showed mild proliferation. (Records are scanned into the all scripts ) H/O right wrist surgery (~03/2015) Done for ganglion cyst at [facility] Status post tubal ligation 09/15/2019--- [place] bilateral [place] for [place] [facility] [place]ology showed benign fallopian tubes bilaterally with lumens. Family History Grandfather Heart disease Paternal; at age 36 of [place] Father Hypertension Family/Other Patient denies medical problems She denies family history of DVT/PE, breast, cervical, uterine, ovarian, colon cancer. Denies family history of Cervical cancer Colon cancer Ovarian cancer DVT (deep venous thrombosis) Breast cancer Pulmonary embolism Uterine cancer Social History Smoking and tobacco status: current every day smoker cigarettes Alcohol intake: current Alcohol intake frequency: holidays/special occasions only Marital status: Number of children: 3 History of recent travel: No Additional social history: - Tobacco Use: Started smoking at the age of 13 and smoked 1 pack of cigarettes a day at the most. Has been cutting down since she found out she is and currently smokes 6 cigarettes daily. Drug Use: Denies Alcohol Use: She does drink two beers weekly on average. None since she found out she was . 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
[2020-08-03 06:55] LABS: OR HCG Qualitative Urine Negative (Negative)
[2020-08-03] MEDS: clindamycin 600 MG/50 ML PREMIX 100 MG IV (06:59)
--- NOTE | 2020-08-03 08:47 | XR_ITS ---
WS: [id number] Left foot, 3 views, 08/03/2020 Clinical Data: post op Comparison: Left foot, 07/25/2020. Findings: There has been revision of the fusion of the left first metatarsal with the left first cuneiform. One of the screws in the plate adjacent to the first metatarsal has been removed. The orientation of the transverse screw fusing the left first metatarsal and left first cuneiform has been changed. The ost eotomy of the left first proximal phalanx remains the same. The internal fixation of the distal left fifth metatarsal remains the same. XR/XR foot LT min 3V* [id number] Impression: Revision of the fusion of the left first metatarsal and left first cuneiform.
--- NOTE | 2020-08-03 09:01 | PM.OP ---
Operative Report Date of procedure: August 03, 2020 Pre-op Diagnosis: Nonunion left foot Post-op diagnosis: same Post-op Findings: Nonunion left first metatarsal medial cuneiform joint Procedure Done: Deep hardware removal, resection nonunion and revision of Lapidus bunionectomy all left foot. CPT codes 67156 and 49965 Implants: Dutton 28 primary Lapidus plate, 3.5 millimeter screws and 4.2 Peterson screw and 4.0 screw, demineralized bone matrix with stem cell, 2-0 Vicryl, 4-0 Vicryl, 5-0 Monocryl Pathology: none sent Surgeon: Trey Harkins D.P.M. Production Staff Worker: Jonathan Anesthesia: General Estimated blood loss: Less than 5 mL Tourniquet time: See intraoperative documentation IV fluids: None Urine output: None Complications: None Findings: Nonunion left Lapidus site Condition: stable Disposition: PACU Brief History: 4 months status post left Lapidus bunionectomy with nonunion she has had persistent pain, underwent long period of nonweightbearing as well as bone stimulator then protected weightbearing with persistent pain and swelling. On x-ray lateral view unable to appreciate osseous union at the first metatarsal base medial cuneiform site. Risks include pain, bleeding, numbness, infection, hardware irritation, hardware failure, delayed union, nonunion, malunion need for further surgical intervention, damage to adjacent soft tissue structures and risk associated with anesthesia inherently also risk for DVT, PE, heart attack, stroke. Interviewed patient preoperatively all questions answered to her satisfaction, she is n.p.o. since midnight I initialed her left foot informed consent is signed by myself and patient. No guarantees written, expressed or implied. Patient wishes to proceed. Procedure: Under mild sedation the patient was brought to the operating room and placed on operating table in supine position. Timeout was performed. Anesthesia was then administered by the anesthesia service. Local anesthesia injected by myself consisting of 12 cc of a saphenous nerve block posterior tibial nerve block and superficial peroneal nerve block. This was 0.5 sent Marcaine plain. Well-padded pneumatic tourniquet was applied to the left ankle. Of note patient received a left popliteal block per anesthesia preoperatively. Left lower extremity was then scrubbed, prepped and draped utilizing normal aseptic technique and the left foot was then examined a weighted with an Esmarch bandage and the tourniquet inflated to 250 mmHg. Attention was directed to the dorsal medial aspect of the first tarsometatarsal joint where previous well-healed cicatrix was identified and directly over the previous incision #15 blade was utilized to perform an skin incision with dissection carried down through skin and subcutaneous tissue down the layer of the hardware care taken to retract and preserve neurovascular and tendinous structures. All bleeders were ligated and cauterized as necessary. All hardware was removed plate and screws passed from operative field. Next the arthrodesis site was inspected and noted to be in adequate there is complete lack of bony union there was fibrous pseudoarthrosis only this was able to be removed with a 15 blade and osteotome. The Lapidus bunionectomy site was then distracted and sagittal saw utilized to cut fresh margins down to bleeding bone was healthy in appearance this was evacuated and flushed with saline solution. Subchondral drilling at the distal aspect of the medial cuneiform as well as at the base of the first metatarsal was then performed followed by impaction of stem cell, bone matrix and autograft total of 2 cc this was harvested from the calcaneus from a lateral incision. First metatarsal was then reduced slightly plantarflexed and temporarily fixated following standard AO technique a Dutton 28 4 mm screw by 36 mm with excellent bony apposition and compression noted. Medial plate then applied standard Dutton plate with 4.2 millimeter screws distally and 3.5 millimeter screws remaining with excellent bony apposition and compression noted in alignment to be appropriate on all 3 views of fluoroscopy. Incision site was then flushed with saline solution. Periosteum closed utilizing 2-0 Vicryl subcutaneous tissue closed utilizing 4-0 Vicryl and skin closed utilizing 5-0 Monocryl. The lateral incision was then flushed and closed with 4-0 nylon. Total of 20 cc of Exparel utilized per manufacture recommendation and technique subcutaneously in a grid like fashion at the operative sites. Incision sites were then dressed with Adaptic, sterile 4 x 4, Kerlix, multilayer compressive posterior splint consisting of cast padding, Ric wraps and 4 inch Ortho-Glass. Tourniquet was deflated and a prompt hyperemic response was noted to the distal digits of the left foot. Patient tolerated the procedure well and was transferred to the PACU with vital signs stable and vascular status intact. Following a period of postoperative monitoring she will be discharged home is to remain strict nonweightbearing and elevate her left foot while at rest she will be taking 81 mg aspirin once daily for DVT prophylaxis and prescribed pain medication to be utilized judiciously.
--- NOTE | 2020-08-03 09:59 | ANES.PROC ---
Anesthesia Procedures Procedure/Date: 08/03/20 Nerve Block ^: Nerve Block 1: Main Anesthesia: general anesthesia Time Out Performed: Yes Consent: requested by attending/covering physician, from patient, risks and benefits reviewed and patient agrees to proceed Nerve block location: popliteal (L) Anesthesia monitors applied: pulse oximetry, EKG, BP cuff and oxygen Nerve block position: semi sitting Anesthetic Used: ropivicaine 0.5% and with decadron (4 mg) Amount of anesthesia used (mL): 30 Ultrasound used to: recognize landmarks Nerve Stimulator Used?: No Interscalene/Femoral BLK: 4 stimuplex 21 g needle used for position and inplane approach, visualize local anesthetic spread and no vascular puncture identified Injection: neg aspiration of heme and paresthesia +/- Patient Tolerated Procedure: well and no complications Complications: none
--- NOTE | 2020-08-03 18:00 | ANE.PACU2 ---
Inpatient post-anesthesia follow up: Airway intact: Yes Vital signs: Temperature 98.1 F Pulse Rate 84 Respiratory Rate 18 Blood Pressure 109/68 Pulse Oximetry 99 Oxygen Delivery Me thod Room Air Oxygen Flow Rate Fraction of Inspir ed Oxygen Hydration adequate: Yes Nausea and vomiting: No Pain level: 2 Mental status: Baseline
== END 2020-08-03 09:41 | disposition home or self-care (01) ==
PROVIDERS: Anesthesiology; PCP Internal Medicine; Visit Provider Podiatrist Foot & Ankle Surgery
PROC: (CPT 28297; principal; 2020-08-03 07:00)
PROC: (CPT 20680; 2020-08-03 07:00)
DX: T84.84XA Pain due to internal orthopedic prosthetic devices, implants and grafts, initial encounter (principal); S92.312K Displaced fracture of first metatarsal bone, left foot, subsequent encounter for fracture with nonunion; X58.XXXD Exposure to other specified factors, subsequent encounter; F17.210 Nicotine dependence, cigarettes, uncomplicated; Z79.82 Long term (current) use of aspirin; F41.9 Anxiety disorder, unspecified; F32.9 Major depressive disorder, single episode, unspecified; Z82.49 Family history of ischemic heart disease and other diseases of the circulatory system
CPT/HCPCS: 20680; 28297; 64450; 73630; 76000; 76942; 81025; 84703; 96374; C1713; C9290; J1100; J2250; J2370; J2704; J2795; J3010; J3490; J7030

== ENCOUNTER 2020-08-17 11:25 | Outpatient (CLI) | payer OTHER, SELFPAY ==
--- NOTE | 2020-08-17 11:29 | XR_ITS ---
WS: [id number] Left foot, 3 views, 08/17/2020 Clinical Data: post op Comparison: Left foot, 08/03/2020. Findings: The fusion of the joint between the base of left first metatarsal left first cuneiform remains in goo d position. There is a medial plate attached with multiple screws and a anterior-posterior screw aidi ng in the fusion. The osteotomy of the left first proximal phalanx of the foot remains the same. Ther e is been a osteotomy of the distal left fifth metatarsal which is reduced with a plate and screw. XR/XR foot LT min 3V* [id number] Impression: 1. No change in fusion of the articulation between the left first metatarsal an d left first cuneiform. 2. No change in osteotomy of the left first proximal phalanx of the foot and of the distal left fifth metatarsal.
== END 2020-08-17 11:26 | disposition home or self-care (01) ==
PROVIDERS: PCP Internal Medicine; Visit Provider Podiatrist Foot & Ankle Surgery
DX: Z98.890 Other specified postprocedural states (principal)
CPT/HCPCS: 73630

== ENCOUNTER → 2020-08-30 15:01 | Outpatient (BNVA) | payer OTHER, SELFPAY | PROVIDERS: PCP Internal Medicine; Visit Provider Podiatrist Foot & Ankle Surgery | DX: Z98.890 Other specified postprocedural states (principal) | CPT/HCPCS: 73630 ==

== ENCOUNTER → 2020-09-13 14:52 | Outpatient (BNVA) | payer OTHER, SELFPAY | PROVIDERS: PCP Internal Medicine; Visit Provider Podiatrist Foot & Ankle Surgery | DX: Z98.890 Other specified postprocedural states (principal) | CPT/HCPCS: 73630 ==

== ENCOUNTER → 2020-10-04 13:59 | Outpatient (BNVA) | payer OTHER, SELFPAY | PROVIDERS: PCP Internal Medicine; Visit Provider Podiatrist Foot & Ankle Surgery | DX: M79.672 Pain in left foot (principal); Z98.890 Other specified postprocedural states | CPT/HCPCS: 73630 ==

== ENCOUNTER 2020-10-05 13:05 | Outpatient (CLI) | payer OTHER, SELFPAY ==
--- NOTE | 2020-10-05 13:24 | XR_ITS ---
WS: [id number] Left hip, 2 views, 10/05/2020 Clinical Data: HIP PAIN POST TRAUMATIC INJURY Comparison: None. Findings: No fractures or dislocations are seen. The left hip joint is intact. The soft tissues are not remarka ble. The adjacent pelvis is normal. There is an intrauterine device in the pelvis. XR/XR hip LT 2-3V wo/w pel* [id number] Impression: Negative left hip. Tonnis classification: grade 0: normal radiographs
== END 2020-10-05 13:06 | disposition home or self-care (01) ==
PROVIDERS: PCP Internal Medicine; Visit Provider Internal Medicine
DX: M25.552 Pain in left hip (principal)
CPT/HCPCS: 73502

== ENCOUNTER → 2020-10-09 14:12 | Outpatient (BNVA) | payer OTHER, SELFPAY | PROVIDERS: PCP Internal Medicine; Visit Provider Internal Medicine | DX: Z01.812 Encounter for preprocedural laboratory examination (principal); Z20.822 Contact with and (suspected) exposure to COVID-19; R10.11 Right upper quadrant pain | CPT/HCPCS: 87635 ==

== ENCOUNTER → 2020-10-11 14:28 | Outpatient (BNVA) | payer OTHER, SELFPAY | PROVIDERS: PCP Internal Medicine; Visit Provider Podiatrist Foot & Ankle Surgery | DX: Z98.890 Other specified postprocedural states (principal); M79.672 Pain in left foot; Z98.1 Arthrodesis status | CPT/HCPCS: 73630 ==

== ENCOUNTER 2020-10-12 08:29 | Day surgery (SDC) | payer OTHER, SELFPAY ==
[2020-10-10 09:30] VITALS: BMI 27.4
--- NOTE | 2020-10-12 08:57 | ANES.PREANE2 ---
Pre-Anesthetic Assessment Pre-Anesthetic Assessment: Height/Weight: Height 1.63 m Weight 72.575 kg Preop Diagnosis: epig pain Proposed Procedure: Operation Date: 10/12/20 09:30 Proposed Procedures p EGD 15590 r10.11(Not Applicable) - Leopoldo Pal MD Familial anesthetic complications: none Was Beta Brody taken within 24 hours: Yes Was Clonidine taken within 24 hours: N/A Last intake: Intake Last Liquid Date 10/11/20 Last Liquid Time 22:00 Last Solid Date 10/11/20 Last Solid Time 22:00 Last Intake: 22:00 Social: Social History: Alcohol and Tobacco Packs per day: 1/2 Pack years: 18 Comment: drink twice weekly Exam: Pre-Anes Outpt Exam: alert and oriented x 3 Airway: Submandibular: WNL Cervical ROM: WNL MP: 1 Additional comments: cannot get nose ring out History/ROS: No significant history except as noted CV/HEM: CV/HEM: Arrythmia Comments: inappropriate sinus tachycardia Metabolic: Comments: pain after eating Musc/skel: Comments: non union foot surgery Anesthetic Plan: ASA status: 2 Anesthesia: Anesthesia Evaluation and MAC Risk of > 500 ml blood loss (7ml/kg in children): No PFSH Anesthesia PFSH: Medical History Anxiety and depression -Was on Celexa prior to the in 2018 and self discontinued this during the and her symptoms are well-controlled with this. Does not have a therapist. -Symptoms are controlled on BuSpar and Zoloft during the and she would like to continue this as well Heartburn Diagnosed with esophagitis and gastritis on endoscopy done in February 2017. This was performed by Dr. Pal and she was taking Prilosec at the start of the . Inappropriate sinus tachycardia ---EP dr in [facility]--Dr. Dickinson; does not see anyone locally. EP study done, but no cardiac ablation; managed with diltiazem and metoprolol prior to No pertinent past medical history Denies diabetes, asthma, seizures, DVT/PE, hypertension Surgical History H/O laparoscopy (08/03/08) 08/03/2008--> done for chronic pelvic pain by Dr. Singleton. Operative findings showed removal of hemoperitoneum with fulguration of endometriotic lesions in the cul-de-sac biopsy. Fallopian tubes looked normal. Biopsy of the cul-de-sac lesions show abnormal endometrial glands. Endometrial biopsy was performed at the same time which showed mild proliferation. (Records are scanned into the all scripts ) H/O right wrist surgery (~03/2015) Done for ganglion cyst at [facility] in [place] Status post tubal ligation 09/15/2019--- laparoscopic bilateral total salpingectomy for sterilization performed [place] Dr. Paz [place] [facility] [place] Pathology showed benign fallopian tubes bilaterally with lumens. Family History Grandfather Heart disease Paternal; at age 36 of [place] Father Hypertension Family/Other Patient denies medical problems She denies family history of DVT/PE, breast, cervical, uterine, ovarian, colon cancer. Denies family history of Cervical cancer Colon cancer Ovarian cancer DVT (deep venous thrombosis) Breast cancer Pulmonary embolism Uterine cancer Social History Smoking and tobacco status: current every day smoker cigarettes Alcohol intake: current Alcohol intake frequency: holidays/special occasions only Marital status: Number of children: 3 History of recent travel: No Additional social history: - Tobacco Use: Started smoking at the age of 13 and smoked 1 pack of cigarettes a day at the most. Has been cutting down since she found out she is and currently smokes 6 cigarettes daily. Drug Use: Denies Alcohol Use: She does drink two beers weekly on average. None since she found out she was . 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
[2020-10-12 08:59] VITALS: BP 145/91; PULSE 77; RESP 18; TEMP 36.8; O2SAT 98
[2020-10-12] MEDS: sodium chloride 0.9% 1,000 ML 30 ML IV (09:01)
--- NOTE | 2020-10-12 09:14 | P.HP_ITS ---
Same Day Surgery H&P Indication for Procedure/HPI DATE OF PROCEDURE: October 12, 2020 CHIEF COMPLAINT/INDICATIONFOR SURGICAL PROCEDURE: Postprandial abdominal pain PREOP DIAGNOSIS: epig pain PLANNED PROCEDRUE: Operation Date: 10/12/20 09:30 Proposed Procedures p EGD 00146 r10.11(Not Applicable) - Leopoldo Pal MD Medications/Allergies* Home Medications Medication Instructions Recorded Confirmed Type Viibryd 20 mg PO DAILY 07/30/20 10/12/20 History diltiazem HCl 240 mg PO DAILY 07/30/20 10/12/20 History Allergies/Adverse Reactions Allergy/AdvReac Type Severity Reaction Status Date / Time amoxicillin Allergy Rash Verified 10/12/20 08:50 Current Medications: Generic Name Dose Route Start Last Admin Trade Name Freq PRN Reason Stop Dose Admin Sodium Chloride 1,000 mls @ 30 mls/hr 10/12/20 08:45 10/12/20 09:01 Sodium Chloride 0.9% IV 10/13/20 08:44 30 mls/hr .Q24H [place] Administration Pertinent History/Comorbid Conditions* Medical History (Updated 10/08/20 @ 18:50 by Trey Harkins DPM) Anxiety and depression -Was on Celexa prior to the in 2018 and self discontinued this during the and her symptoms are well-controlled with this. Does not have a therapist. -Symptoms are controlled on BuSpar and Zoloft during the and she would like to continue this as well Heartburn Diagnosed with esophagitis and gastritis on endoscopy done in February 2017. This was performed by Dr. Pal and she was taking Prilosec at the start of the . Inappropriate sinus tachycardia ---EP dr in [facility]--Dr. Dickinson; does not see anyone locally. EP study done, but no cardiac ablation; managed with diltiazem and metoprolol prior to No pertinent past medical history Denies diabetes, asthma, seizures, DVT/PE, hypertension Surgical History (Updated 05/28/20 @ 09:48 by Trey Harkins DPM) H/O laparoscopy (08/03/08) 08/03/2008--> done for chronic pelvic pain by Dr. Singleton. Operative findings showed removal of hemoperitoneum with fulguration of endometriotic lesions in the cul-de-sac biopsy. Fallopian tubes looked normal. Biopsy of the cul-de-sac lesions show abnormal endometrial glands. Endometrial biopsy was performed at the same time which showed mild proliferation. (Records are scanned into the all scripts ) H/O right wrist surgery (~03/2015) Done for ganglion cyst at [facility] in [place] Status post tubal ligation 09/15/2019--- laparoscopic bilateral total salpingectomy for sterilization [place] Paz [place] [facility] [place]ology showed benign fallopian tubes bilaterally with lumens. Family History (Updated 07/11/19 @ 13:27 by Ignacio Esteban MD) Heart disease Grandfather Paternal; at age 36 of [place] Patient denies medical problems Family/Other She denies family history of DVT/PE, breast, cervical, uterine, ovarian, colon cancer. Hypertension Father Denies family history of Cervical cancer Colon cancer Ovarian cancer DVT (deep venous thrombosis) Breast cancer Pulmonary embolism Uterine cancer Social History Smoking and tobacco status: current every day smoker cigarettes Alcohol intake: current Alcohol intake frequency: holidays/special occasions only Marital status: Number of children: 3 History of recent travel: No Additional social history: - Tobacco Use: Started smoking at the age of 13 and smoked 1 pack of cigarettes a day at the most. Has been cutting down since she found out she is and currently smokes 6 cigarettes daily. Drug Use: Denies Alcohol Use: She does drink two beers weekly on average. None since she found out she was . 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
[2020-10-12 10:04] VITALS: BP 131/81; PULSE 63; RESP 18; TEMP 36.1; O2SAT 100
--- NOTE | 2020-10-12 10:08 | PC.NURSE ---
APPOINTMENT MADE WITH DR BROOKS FOR GALLBLADDER EVALUATION
--- NOTE | 2020-10-12 10:44 | ANE.PACU2 ---
Inpatient post-anesthesia follow up: Airway intact: Yes Vital signs: Temperature 97 F Pulse Rate 63 Respiratory Rate 18 Blood Pressure 131/81 Pulse Oximetry 100 Oxygen Delivery Me thod Room Air Oxygen Flow Rate Fraction of Inspir ed Oxygen Hydration adequate: Yes Nausea and vomiting: No Mental status: Baseline
== END 2020-10-12 10:20 | disposition home or self-care (01) ==
PROVIDERS: PCP Internal Medicine; Visit Provider Internal Medicine
PROC: 0DJ08ZZ Inspection of Upper Intestinal Tract, Via Natural or Artificial Opening Endoscopic (ICD-10-PCS; CPT 43235; principal; 2020-10-12 09:30)
DX: R10.13 Epigastric pain (principal); F41.9 Anxiety disorder, unspecified; F32.9 Major depressive disorder, single episode, unspecified; Z82.49 Family history of ischemic heart disease and other diseases of the circulatory system; F17.210 Nicotine dependence, cigarettes, uncomplicated
CPT/HCPCS: 43235; 96360; J2704; J7030

== ENCOUNTER → 2020-10-26 10:22 | Outpatient (BNVA) | payer OTHER, SELFPAY | PROVIDERS: PCP Internal Medicine; Visit Provider Surgery | DX: Z01.812 Encounter for preprocedural laboratory examination (principal); Z20.822 Contact with and (suspected) exposure to COVID-19 | CPT/HCPCS: 87635 ==

== ENCOUNTER 2020-10-31 05:54 | Day surgery (SDC) | payer OTHER, SELFPAY ==
[2020-10-30 13:27] VITALS: BMI 27.4
[2020-10-31] VITALS (9 sets, daily range): BP systolic 100–142; BP diastolic 67–98; PULSE 49–79; RESP 13–19; TEMP 36.4–36.8; O2SAT 94–99
[2020-10-31] MEDS: sodium chloride 0.9% 1,000 ML 30 ML IV (06:14)
[2020-10-31] MEDS: scopolamine 1.5 Patch 1 PATCH TRANSDERMA (06:38)
--- NOTE | 2020-10-31 06:53 | W.PM.OPSUD ---
Surgery/Procedure H&P Update DATE OF PROCEDURE: October 31, 2020 DATE H&P PERFORMED: 10/26/20 H&P UPDATE INFORMATION: I have reviewed H&P completed within last 30 days, I have examined patient prior to procedure and No changes to prior documentation PREOP DIAGNOSIS: Chronic cholecystitis PLANNED PROCEDURE: Operation Date: 10/31/20 07:00 Proposed Procedures p Laparoscopic Cholecystectomy 33189 r10.11(Not Applicable) - Martin Ballesteros MD
[2020-10-31] MEDS: levofloxacin-dextrose 5 % 500 MG/100 ML PREMIX 100 MG IV (07:00)
--- NOTE | 2020-10-31 07:24 | ANES.PREANE2 ---
Pre-Anesthetic Assessment Pre-Anesthetic Assessment: Height/Weight: Height 1.63 m Weight 72.575 kg Temp Pulse Resp BP Pulse Ox 97.6 F 68 16 142/98 98 10/31/20 06:08 10/31/20 06:08 10/31/20 06:08 10/31/20 06:08 10/31/20 06:08 Preop Diagnosis: Chronic cholecystitis Proposed Procedure: Operation Date: 10/31/20 07:00 Proposed Procedures p Laparoscopic Cholecystectomy 37284 [id number](Not Applicable) - Martin Ballesteros MD Was Beta Brody taken within 24 hours: N/A Was Clonidine taken within 24 hours: N/A Last intake: Intake Last Liquid Date 10/30/20 Last Liquid Time 23:30 Last Solid Date 10/30/20 Last Solid Time 20:00 Social: Social History: No alcohol and No tobacco Exam: Pre-Anes Outpt Exam: alert, oriented x 3, clear to auscultation bilaterally and regular rate & rhythm Airway: Submandibular: WNL Cervical ROM: WNL MP: 2 Dentition: Full History/ROS: No significant history except as noted Neuropsych: Neuropsych: Anxiety Anesthetic Plan: ASA status: 2 Anesthesia: General Risk of > 500 ml blood loss (7ml/kg in children): No Meds/Allergies Current Medications: Current Medications Generic Name Dose Route Start Last Admin Trade Name Freq PRN Reason Stop Dose Admin Sodium Chloride 1,000 mls @ 30 ml s/hr 10/31/20 05:45 10/31/20 06:14 Sodium Chloride 0.9% IV 11/01/20 05:44 30 mls/hr .Q24H [place] Administration PFSH Anesthesia PFSH: Medical History Anxiety and depression -Was on Celexa prior to the in 2018 and self discontinued this during the and her symptoms are well-controlled with this. Does not have a therapist. -Symptoms are controlled on BuSpar and Zoloft during the and she would like to continue this as well Heartburn Diagnosed with esophagitis and gastritis on endoscopy done in February 2017. This was performed by Dr. Pal and she was taking Prilosec at the start of the . Inappropriate sinus tachycardia ---EP dr in [facility]--Dr. Dickinson; does not see anyone locally. EP study done, but no cardiac ablation; managed with diltiazem and metoprolol prior to No pertinent past medical history Denies diabetes, asthma, seizures, DVT/PE, hypertension Surgical History (Updated 10/26/20 @ 09:35 by Martin Ballesteros MD) H/O laparoscopy (08/03/08) 08/03/2008--> done for chronic pelvic pain by Dr. Singleton. Operative findings showed removal of hemoperitoneum with fulguration of endometriotic lesions in the cul-de-sac biopsy. Fallopian tubes looked normal. Biopsy of the cul-de-sac lesions show abnormal endometrial glands. Endometrial biopsy was performed at the same time which showed mild proliferation. (Records are scanned into the all scripts ) H/O right wrist surgery (~03/2015) Done for ganglion cyst at [facility] in [place] History of bunionectomy of left great toe History of colonoscopy 2016 History of esophagogastroduodenoscopy (EGD) 2020 Status post tubal ligation 09/15/2019--- laparoscopic bilateral total salpingectomy for sterilization performed by Dr. Paz at [facility] [place]. Pathology showed benign fallopian tubes bilaterally with lumens. Family History Grandfather Heart disease Paternal; at age 36 of [place] Father Hypertension Family/Other Patient denies medical problems She denies family history of DVT/PE, breast, cervical, uterine, ovarian, colon cancer. Denies family history of Cervical cancer Colon cancer Ovarian cancer DVT (deep venous thrombosis) Breast cancer Pulmonary embolism Uterine cancer Social History Smoking and tobacco status: current every day smoker cigarettes Alcohol intake: current Alcohol intake frequency: holidays/special occasions only Marital status: Number of children: 3 History of recent travel: No Additional social history: - Tobacco Use: Started smoking at the age of 13 and smoked 1 pack of cigarettes a day at the most. Has been cutting down since she found out she is and currently smokes 6 cigarettes daily. Drug Use: Denies Alcohol Use: She does drink two beers weekly on average. None since she found out she was . 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
[2020-10-31] MEDS: metoclopramide 5 mg/mL SDV 2 mL 10 MG IVP (07:57)
[2020-10-31] MEDS: HYDROmorphone 1 mg/mL INJ 1 mL 0.5 MG IVP (08:03)
[2020-10-31] MEDS: HYDROcodone-acetaminophen 5-325 mg Tablet 1 TAB PO (08:25)
--- NOTE | 2020-10-31 14:34 | ANE.PACU2 ---
Inpatient post-anesthesia follow up: Airway intact: Yes Vital signs: Temperature 97.9 F Pulse Rate 60 Respiratory Rate 16 Blood Pressure 128/84 Pulse Oximetry 99 Oxygen Delivery Me thod Room Air Oxygen Flow Rate Fraction of Inspir ed Oxygen Hydration adequate: Yes Nausea and vomiting: No Pain level: 2 Mental status: Baseline
--- NOTE | 2020-10-31 14:50 | PM.OP ---
Operative Report Date of procedure: October 31, 2020 Pre-op Diagnosis: Chronic cholecystitis Post-op Diagnosis: 1. Chronic cholecystitis 2. Stomach and omentum adherent to the fundus and body of the gallbladder Procedure Done: Laparoscopic cholecystectomy Specimens removed/disposition: Gallbladder Surgeon: Martin Ballesteros Anesthesia: General Condition: stable Disposition: PACU Procedure: The patient was taken to the operating room and was intubated under general anesthesia. After the antibiotic had been administered, the abdomen was prepped and draped in a sterile manner. Using a #15 blade, a 1 centimeter infraumbilical curvilinear incision was made and using an open Gus technique the peritoneal cavity was entered. A 10 millimeter port was placed and 15 millimeters of pneumoperitoneum was created. A 10 millimeter, 30 degrees scope was then introduced. Three 5 millimeter ports were placed in the epigastric, midclavicular and the anterior axillary line two fingerbreadths below the costal margin on the right side under the direct visualization. Ratcheted forceps were introduced into the lateral most port and was used to retract the fundus of the gallbladder cephalad and using forceps the infundibulum of the gallbladder was retracted laterally. Using L-hook cautery the peritoneum overlying the Calot's triangle was opened medially and laterally until the cystic duct and the anterior and posterior branch of cystic artery were skeletonized. Dissection was carried along the body of the gallbladder and after ensuring critical view of safety, 4 clips applied on the cystic duct and 3 clips applied on the anterior and posterior branch of cystic artery and cut leaving, 3 clips on the remaining portion of the duct and 2 clips on the remaining portion of the artery. The rest of the gallbladder was dissected off the liver using L-hook cautery. There was no bleeding or bile leaking noted from the gallbladder fossa and the clips appeared to be in place. An EndoCatch bag was introduced to remove the gallbladder. All the ports were removed under direct visualization and there was no bleeding noted from the port sites. The fascia of the umbilicus was closed using [id number] 0 Vicryl sutures and the subcutaneous tissue was approximated using 3-0 Vicryl sutures. The skin at all four ports were closed using 4-0 Monocryl and Dermabond. A total of 10 millimeters of 0.5% Marcaine was infiltrated around the port sites. The patient was stable throughout the procedure.
== END 2020-10-31 08:50 | disposition home or self-care (01) ==
PROVIDERS: PCP Internal Medicine; Visit Provider Surgery
PROC: 0FT44ZZ Resection of Gallbladder, Percutaneous Endoscopic Approach (ICD-10-PCS; CPT 47562; principal; 2020-10-31 07:00)
DX: K81.1 Chronic cholecystitis (principal); Z82.49 Family history of ischemic heart disease and other diseases of the circulatory system; F17.210 Nicotine dependence, cigarettes, uncomplicated
CPT/HCPCS: 47562; 81025; 88304; 96365; J1100; J1170; J1200; J1956; J2405; J2704; J2710; J2765; J3010; J3490; J7030

== ENCOUNTER → 2020-11-09 15:36 | Outpatient (BNVA) | payer OTHER, SELFPAY | PROVIDERS: PCP Internal Medicine; Visit Provider Podiatrist Foot & Ankle Surgery | DX: Z98.890 Other specified postprocedural states (principal); M79.672 Pain in left foot; M96.0 Pseudarthrosis after fusion or arthrodesis; S92.502D Displaced unspecified fracture of left lesser toe(s), subsequent encounter for fracture with routine healing; W22.09XD Striking against other stationary object, subsequent encounter | CPT/HCPCS: 73630 ==

== ENCOUNTER → 2020-12-03 11:18 | Outpatient (BNVA) | payer OTHER, SELFPAY | PROVIDERS: PCP Internal Medicine; Visit Provider Podiatrist Foot & Ankle Surgery | DX: M79.672 Pain in left foot (principal); M25.572 Pain in left ankle and joints of left foot | CPT/HCPCS: 73610; 73630 ==

== ENCOUNTER 2020-12-03 12:13 | Outpatient (CLI) | payer OTHER, SELFPAY ==
[2020-12-03 12:41] LABS: Basophils % 0.6 %; Eosinophils % 0.5 %; Hematocrit 39.7 % (37.0-47.0); Hemoglobin 13.1 g/dL (11.5-15.3); Lymphocytes # 1.7 10^3/uL (0.8-4.8); Lymphocytes % 26.6 %; Mean Corpuscular Hemoglobin 30.1 pg (28.0-34.0); Mean Corpuscular Volume 91.3 fL (81-99); Monocytes # 0.3 10^3/uL (0.2-0.9); Monocytes % 5.2 %; Neutrophils # 4.38 10^3/uL (1.8-7.7); Neutrophils % 66.8 %; Nucleated Red Blood Cells % 0 %; Platelet Count 286 10^3/cmm (130-400); Red Blood Count 4.35 10^6/uL (4.1-5.3); Red Cell Distribution Width 13.4 % (12.1-15.1); White Blood Count 6.6 10^3/uL (4.0-10.0)
[2020-12-03 13:04] LABS: Anion Gap 13.9 (5-19); Blood Urea Nitrogen 11 mg/dL (6-20); C Reactive Protein 2.4 mg/L (0.0-4.9); Calcium 8.3 mg/dL (8.5-10.5); Carbon Dioxide 23 mmol/L (22-29); Chloride 106 mmol/L (98-107); Glucose 99 mg/dL (65-115); Osmolality Calculated 287 mOsm/kg (285-295); Potassium 3.9 mmol/L (3.5-5.1); Sodium 139 mmol/L (136-145)
[2020-12-03 13:45] LABS: Erythrocyte Sedimentation Rate 8 mm/hr (0-15)
--- NOTE | 2020-12-03 15:45 | USCV_ITS ---
Monica Romero Age: 30 Gender: F : 1990 Exam Date: 12/03/2020 15:50 Ordering Phys: Trey Harkins DPM Technologist: CHICO Exam Location: [facility] Indication: LEFT LEG REDNESS PROCEDURES: Venous duplex imaging was performed in only the left lower extremity. The following venous structures were evaluated: common femoral vein, profunda vein, proximal portion of the greater saphenous vein, superficial femoral vein, and the popliteal vein. In addition, the posterior tibial and peroneal trunk were evaluated. Serial compression, augmentation maneuvers, and spectral Doppler flow evaluation were performed. FINDINGS: Normal 2-D Doppler and augmentation and compressibility throughout the lower extremity venous structures. Additional imaging through the proximal calf veins also reveals no thrombus. Limited evaluation of the greater saphenous vein is patent with no thrombus.. CONCLUSIONS No evidence of left lower extremity DVT. Silver Griffiths MD (Electronically Signed) Final Date: 03 December 2020 17:23 S
== END 2020-12-03 12:14 | disposition home or self-care (01) ==
PROVIDERS: PCP Internal Medicine; Visit Provider Podiatrist Foot & Ankle Surgery
DX: L53.9 Erythematous condition, unspecified (principal); Z98.890 Other specified postprocedural states; M79.89 Other specified soft tissue disorders
CPT/HCPCS: 80048; 85025; 85378; 85651; 86140; 93971

== ENCOUNTER 2021-01-18 10:09 | Emergency (ER) | payer OTHER, SELFPAY ==
--- NOTE | 2021-01-18 10:18 | ED_ITS ---
HPI - Abdominal Pain General: Chief Complaint: Abdominal Pain Stated Complaint: hx kidney stones: L flank pain Time Seen by Provider: 01/18/21 10:17 Source: patient Mode of arrival: ambulatory Limitations: no limitations History of Present Illness: HPI narrative: 30-year-old female presents to the ER today for left flank pain radiating into the left lower quadrant x5 days. Patient reports it started Thursday with some dysuria and has progressively worsened. Patient reports a history of a stone but also history of pyelonephritis. Patient reports significantly worsened pain today with nausea. She has not vomited at this time. She does report some diarrhea but no constipation. Patient denies any chance of . Pain is sharp and radiates anteriorly. Patient denies headache, fever, chills, congestion, runny nose, sore throat, chest pain, shortness of breath, vomiting, constipation. MD elicited complaint: flank pain (left) Pertinent past history: kidney stones and past UTI Onset (ago): day(s) (5) Pain Consistency: constant and intermittent Location: LLQ and L flank Severity: moderate Quality: sharp Radiation: LLQ Migration to: LLQ and L flank Relieving factors: nothing Associated Symptoms: Reports diarrhea, dysuria and nausea; Denies chills, constipation, fever(s) and vomiting Related Data: Date of Last Menstrual Period: 10/09/20 Review of Systems Const: Denies: fever(s), chills or change in appetite ENMT: Denies: throat pain, nasal discharge or nasal congestion Card: Denies: chest pain or palpitations Resp: Denies: dyspnea, productive cough or non-productive cough GI: Reports: abdominal pain, nausea and diarrhea; Denies: vomiting or constipation : Reports: flank pain (left), dysuria and urinary frequency Musc: Reports: back pain Skin/Breast: Denies: rash Neuro: Denies: headache(s) PFS ED PFSH: Medical History Anxiety and depression -Was on Celexa prior to the in 2018 and self discontinued this during the and her symptoms are well-controlled with this. Does not have a therapist. -Symptoms are controlled on BuSpar and Zoloft during the and she would like to continue this as well Heartburn Diagnosed with esophagitis and gastritis on endoscopy done in February 2017. This was performed by Dr. Pal and she was taking Prilosec at the start of the . Inappropriate sinus tachycardia ---EP dr in [facility]--Dr. Dickinson; does not see anyone locally. EP study done, but no cardiac ablation; managed with diltiazem and metoprolol prior to No pertinent past medical history Denies diabetes, asthma, seizures, DVT/PE, hypertension Surgical History H/O laparoscopy (08/03/08) 08/03/2008--> done for chronic pelvic pain by Dr. Singleton. Operative findings s howed removal of hemoperitoneum with fulguration of endometriotic lesions in the cul-de-sac biopsy. Fallopian tubes looked normal. Biopsy of the cul-de-sac lesions show abnormal endometrial glands. Endometrial biopsy was performed at the same time which showed mild proliferation. (Records are scanned into the all scripts ) H/O right wrist surgery (~03/2015) Done for ganglion cyst at [facility] History of bunionectomy of left great toe History of colonoscopy 2016 History of esophagogastroduodenoscopy (EGD) 2020 Status post laparoscopic cholecystectomy (10/31/20) Status post tubal ligation 09/15/2019--- laparoscopic bilateral total salpingectomy for sterilization performed by Dr. Paz at [facility] [place] [place]. Pathology showed benign fallopian tubes bilaterally with lumens. Family History Grandfather Heart disease Paternal; at age 36 of [place] Father Hypertension Family/Other Patient denies medical problems She denies family history of DVT/PE, breast, cervical, uterine, ovarian, colon cancer. Denies family history of Cervical cancer Colon cancer Ovarian cancer DVT (deep venous thrombosis) Breast cancer Pulmonary embolism Uterine cancer Social History Alcohol intake: current Alcohol intake frequency: holidays/special occasions only Marital status: Number of children: 3 History of recent travel: No Additional social history: -- Female Reproductive History: Date of last menstrual period: 10/09/20 Physical Exam Const: COMMON NORMALS: patient oriented x3, no limitations and healthy appearing; apparent distress (appears uncomfortable and holding L low back) GENERAL APPEARANCE: cooperative HENMT: COMMON NORMALS: normocephalic HEAD & SCALP: normocephalic Lymph: LYMPHATIC: no lymphadenopathy noted Resp: COMMON NORMALS: normal respiratory effort, No retractions and clear to auscultation bilaterally EFFORT & INSPECTION: Yes able to speak in complete sentences AUSCULTATION: clear to auscultation bilaterally Cardio: COMMON NORMALS: regular rate, regular rhythm, No murmurs present (Cardio) and Peripheral pulses 2+ throughout RATE: regular rate RHYTHM: regular rhythm PERIPHERAL PULSES: Peripheral pulses 2+ throughout GI: COMMON NORMALS: Normal to inspection, nondistended, normoactive bowel sounds present and Soft to palpation PALPATION: Yes Soft to palpation, No Tenderness to palpation present (GI) and No Guarding due to palpation present (GI) : COMMON NORMALS: No no CVA tenderness (L CVA/flank tenderness) BLADDER/KIDNEY EXAM: No no CVA tenderness (L CVA/flank tenderness) and Yes CVA tenderness Back/Pelvis: COMMON NORMALS: thoracic and lumbar spine normal to inspection; negative for no CVA tenderness (L CVA/flank tenderness) GENERAL BACK: Yes CVA tenderness Extremity: COMMON NORMALS: negative for normal to inspection (pt in walking boot L foot) Neuro: COMMON NORMALS: patient oriented x3 Psych: COMMON NORMALS: mental status grossly normal and Normal thought process present THOUGHT PROCESS: Normal thought process present Skin: COMMON NORMALS: no rashes or lesions noted GENERAL SKIN EXAM: no rashes or lesions noted Course ED course: We will start with lab work at this time given most recently patient had pyelonephritis. Will get UA, CBC and CMP. If abnormal will treat for UTI/pyelonephritis. If normal we will proceed with CT. Reevaluation(s): Reevaluation #1: Patient still appears uncomfortable but is stable. Patient has an elevated white count at 14,000, all other labs are normal at this time. We will go ahead with CT as patient is still having pain and there does not appear to be infection in the urine. Time: 11:30 Vital Signs: Vital signs: Vital Signs Temperature 98.2 F 01/18/21 10:23 Pulse Rate 66 01/18/21 11:06 Respiratory Rate 16 01/18/21 10:23 Blood Pressure 125/59 01/18/21 11:06 Pulse Oximetry 99 01/18/21 11:06 MDM - Abdominal Pain MDM Narrative: Medical decision making narrative: CT indicates a moderately sized left ovarian cyst which is likely the cause of patient's pain today patient has a slightly elevated white count but otherwise mostly unremarkable CBC, CMP, and a normal UA. Patient is resting comfortably in the room. Discussed findings with patient. She does have an [employer]ANCE OBS[employer]ER that she saw with her last child but has not seen them in a couple of years. She will make a follow- up appointment with them. We will prescribe anti-inflammatories for pain at this time. Patient should increase fluids and rest. Return to the ER with any new or worsening symptoms. Lab Data: Attestation: I reviewed the patient's lab results. Labs: Lab Results 01/18/21 01/18/21 01/18/21 Range/Units 10:29 10:41 10:41 WBC 14.3 H (4.0-10.0) 10^3/ uL RBC 4.90 (4.1-5.3) 10^6/u L Hgb 15.2 (11.5-15.3) g/dL Hct 44.6 (37.0-47.0) % MCV 91.0 (81-99) fl MCH 31.0 (28.0-34.0) pg MCHC 34.1 (30.0-36.0) g/dL RDW 13.0 (12.1-15.1) % Plt Count 302 (130-400) 10^3/c mm MPV 10.1 (7.4-10.4) fL Neut % (Auto) 66.2 % Lymph % (Auto) 24.4 % Bartholomew % (Auto) 6.6 % Eos % (Auto) 1.2 % Baso % (Auto) 0.3 % Neut # (Auto) 9.46 H (1.8-7.7) 10^3/u L Lymph # (Auto) 3.5 (0.8-4.8) 10^3/u L Bartholomew # (Auto) 0.9 (0.2-0.9) 10^3/u L Eos # (Auto) 0.2 (0.0-0.8) 10^3/u L Baso # (Auto) 0.0 (0.0-0.1) 10^3/u L Nucleated RBC % (a uto) 0 % Nucleated RBCs # 0.0 /100WBC Sodium 135 L (136-145) mmol/L Potassium 4.1 (3.5-5.1) mmol/L Chloride 101 (98-107) mmol/L Carbon Dioxide 22 (22-29) mmol/L Anion Gap 16.1 (5-19) BUN 11 (6-20) mg/dL Creatinine 0.7 (0.5-0.9) mg/dL GFR Calculation 99.6 (90-130) mL/min Glucose 84 (65-115) mg/dL Calculated Osmolal ity 279 L (285-295) mOsm/k g Calcium 9.5 (8.5-10.5) mg/dL Total Bilirubin 0.3 (0.15-1.2) mg/dL AST 11 (0-32) U/L ALT 15 (0-33) U/L Alkaline Phosphata se 86 (35-105) IU/L Total Protein 7.0 (6.6-8.7) g/dL Albumin 4.6 (3.5-5.2) g/dL Globulin 2.4 (1.3-4.6) g/dL HCG, Qual (Negative) Urine Color Straw (Yellow) Urine Appearance Clear (CLEAR) Urine pH 7 (5-7) Ur Specific Gravit y 1.000 L (1.005-1.030) Urine Protein Neg (Negative) Urine Glucose (UA) Norm (Normal) Urine Ketones Negative (Negative) Urine Blood Neg (Negative) Urine Nitrate Negative (Negative) Urine Bilirubin Neg (Negative) Urine Urobilinogen Norm (Negative) mg/dL Ur Leukocyte Sondra ase Negative (Negative) 01/18/21 Range/Units 10:44 WBC (4.0-10.0) 10^3/ uL RBC (4.1-5.3) 10^6/u L Hgb (11.5-15.3) g/dL Hct (37.0-47.0) % MCV (81-99) fl MCH (28.0-34.0) pg MCHC (30.0-36.0) g/dL RDW (12.1-15.1) % Plt Count (130-400) 10^3/c mm MPV (7.4-10.4) fL Neut % (Auto) % Lymph % (Auto) % Bartholomew % (Auto) % Eos % (Auto) % Baso % (Auto) % Neut # (Auto) (1.8-7.7) 10^3/u L Lymph # (Auto) (0.8-4.8) 10^3/u L Bartholomew # (Auto) (0.2-0.9) 10^3/u L Eos # (Auto) (0.0-0.8) 10^3/u L Baso # (Auto) (0.0-0.1) 10^3/u L Nucleated RBC % (a uto) % Nucleated RBCs # /100WBC Sodium (136-145) mmol/L Potassium (3.5-5.1) mmol/L Chloride (98-107) mmol/L Carbon Dioxide (22-29) mmol/L Anion Gap (5-19) BUN (6-20) mg/dL Creatinine (0.5-0.9) mg/dL GFR Calculation (90-130) mL/min Glucose (65-115) mg/dL Calculated Osmolal ity (285-295) mOsm/k g Calcium (8.5-10.5) mg/dL Total Bilirubin (0.15-1.2) mg/dL AST (0-32) U/L ALT (0-33) U/L Alkaline Phosphata se (35-105) IU/L Total Protein (6.6-8.7) g/dL Albumin (3.5-5.2) g/dL Globulin (1.3-4.6) g/dL HCG, Qual Negative (Negative) Urine Color (Yellow) Urine Appearance (CLEAR) Urine pH (5-7) Ur Specific Gravit y (1.005-1.030) Urine Protein (Negative) Urine Glucose (UA) (Normal) Urine Ketones (Negative) Urine Blood (Negative) Urine Nitrate (Negative) Urine Bilirubin (Negative) Urine Urobilinogen (Negative) mg/dL Ur Leukocyte Sondra ase (Negative) Imaging Data ^: CT Abd/Pel: Radiologist's impression: [address] [address] [address] Scan Report Signed Patient: Monica Romero Unit #: [id number] : 1990 [id number] Age/Sex: 30 / F ADM Date: 01/18/21 Loc: ER Room/Bed: Attending Dr: Ordering Provider/Ordering MD: Ely Cary Date of Service: 01/18/21 Procedure(s): CT kidney stone [address]71 Accession Number(s): [id number] Report Number: [id number] WS: [id number] CT ABDOMEN AND PELVIS NONCONTRAST HISTORY: L flank/CVA pain; hx of stone TECHNIQUE: Imaging performed through the abdomen and pelvis. Coronal and sagittal reformats are submitted. [facility] use at least one of these dose optimization techniqu es: automated exposure control; mA and/or kV adjustment per patient size (i ncludes targeted exams where dose is matched to clinical indication); or iterative reconstruction. DLP: 1200.3 mGy.cm COMPARISON: 06/29/2020 Lower thorax: Lung bases are clear. Visualized heart is normal. No hiatal hernia. Liver: Mild hepatomegaly and hepatic steatosis. No bile duct dilatation or mass. Gallbladder: Prior cholecystectomy. Pancreas: Normal size and attenuation. Normal pancreatic duct. No pancreatitis or mass. Spleen: Normal. Adrenal glands: Normal. No mass. Right kidney: Normal size kidney with no mass or hydronephrosis. Left kidney: Normal size kidney with no mass or hydronephrosis. Aorta: Normal abdominal aorta, no aneurysm or atherosclerosis. No free fluid, intraperitoneal air or significant lymphadenopathy. GI tract: Normal appendix. No GI tract obstruction or diverticulosis. Abdominal wall: Small umbilical hernia contains fat only. Pelvis: Normal size uterus. There is an IUD appropriately positioned. Moderate LEFT ovarian cyst measures 3.7 x 4.3 cm. No free fluid. Osseous structures: Unremarkable. CT/CT kidney stone [id number] IMPRESSION: 1. Moderate-sized LEFT ovarian cyst measures 3.7 x 4.3 cm. 2. Prior cholecystectomy. 3. No renal obstruction or calcifications. 4. Normal appendix. Dictated By: Florencia Dickinson DO Signed By: Florencia Dickinson DO Signed Date/Time: 01/18/21 1152 DD/ 1147 Critical Care Time Critical Care Time: Critical Care Time: No Discharge Plan Discharge Patient Disposition: Home Clinical Impression: Ovarian cyst Qualifiers: Laterality: left Qualified Code(s): N83.202 - Unspecified ovarian cyst, left side Condition: Stable Prescriptions: No Action (DME) crutch Misc See Rx Instructions .ROUTE .MEDSUPPLY Qty: 2 RF: 0 (DME) Crutches See Rx Instructions .Route .MEDSUPPLY Qty: 1 RF: 0 cephalexin 500 mg capsule 500 mg PO TID 7 Days Qty: 21 RF: 0 prednisone 10 mg tablet 10 mg PO DAILY Qty: 5 RF: 0 erythromycin 5 mg/gram (0.5 %) ointment 0.5 inch ophthalmic (eye) TID Qty: 3.5 RF: 0 bimatoprost [Latisse] 0.03 % drops with applicator 1 applic topical DAILY Qty: 3 RF: 0 loratadine 10 mg tablet 10 mg PO DAILY Qty: 30 RF: 0 Mirena 20 mcg/24 hours (5 yrs) 52 mg intrauterine device 1 device INTRAUTERI .every 5 years Qty: 1 RF: 0 (DME) bone stimulator See Rx Instructions .ROUTE .MEDSUPPLY Qty: 1 RF: 0 Viibryd 20 mg tablet 20 mg PO DAILY Qty: 30 RF: 3 diltiazem HCl 240 mg capsule,extended release 24hr 240 mg PO DAILY Qty: 30 RF: 3 Bystolic 5 mg tablet 5 mg PO DAILY Qty: 30 RF: 5 pantoprazole [Protonix] 40 mg tablet,delayed release (DR/EC) 40 mg PO DAILY Qty: 30 RF: 2 Zofran 4 mg tablet 4 mg PO Q6H PRN (Reason: nausea and vomiting) Qty: 20 RF: 0 Colace 100 mg capsule 100 mg PO BID Qty: 30 RF: 0 hydrocodone-acetaminophen 5-325 mg tablet 1 tab PO Q6H PRN (Reason: pain) Qty: 20 RF: 0 Discharge Orders: Discharge ED (Routine); Ordered 01/18/21 Ordered By: Ely Cary Referrals: Leopoldo Pal MD [Primary Care Provider] - Discharge Diet: Usual diet Discharge Activity: Resume usual activity Patient Instructions: Ovarian Cyst (ED), Opioid Safety Activity Restrictions/Additional Instructions: Take naproxen twice daily for pain. Increase fluid intake. Contact [employer] for follow-up in 1 week. Return to the ER with any new or worsening symptoms. Coding Level of Care Code ED [place] Guide for Chg Fwd Exam Comprehensive
[2021-01-18 10:23] VITALS: PULSE 86; RESP 16; TEMP 36.8; O2SAT 98; BMI 28.3
[2021-01-18] MEDS: sodium chloride 0.9% 1,000 ML 250 ML IV (10:58)
[2021-01-18] MEDS: ketorolac 30 mg/mL INJ IVP (11:02)
[2021-01-18] MEDS: ondansetron 2 mg/ML SDV 2 mL 4 MG IVP (11:02)
[2021-01-18 11:04] LABS: Basophils % 0.3 %; Eosinophils # 0.2 10^3/uL (0.0-0.8); Eosinophils % 1.2 %; Hematocrit 44.6 % (37.0-47.0); Hemoglobin 15.2 g/dL (11.5-15.3); Lymphocytes # 3.5 10^3/uL (0.8-4.8); Lymphocytes % 24.4 %; Mean Corpuscular HGB Conc 34.1 g/dL (30.0-36.0); Mean Platelet Volume 10.1 fL (7.4-10.4); Monocytes # 0.9 10^3/uL (0.2-0.9); Monocytes % 6.6 %; Neutrophils # 9.46 10^3/uL (1.8-7.7); Neutrophils % 66.2 %; Nucleated Red Blood Cells % 0 %; Platelet Count 302 10^3/cmm (130-400); White Blood Count 14.3 10^3/uL (4.0-10.0)
[2021-01-18 11:06] VITALS: BP 125/59; PULSE 66; O2SAT 99
[2021-01-18 11:11] LABS: Add Urine Microscopic? NO; Charge for UA Resulting for Rev
[2021-01-18 11:18] LABS: Urine Appearance Clear (CLEAR); Urine Color Straw (Yellow)
[2021-01-18 11:18] LABS: HCG Qualitative Urine. Negative (Negative)
[2021-01-18 11:19] LABS: Bilirubin Urine Neg (Negative); Blood Urine Neg (Negative); Glucose Urine UA Norm (Normal); Ketones Urine Negative (Negative); Leukocyte Esterase Urine Negative (Negative); Nitrate Urine Negative (Negative); Protein Urine Neg (Negative); Urobilinogen Urine Norm (Negative); pH Urine 7 (5-7)
[2021-01-18 11:22] LABS: Alanine Aminotransferase 15 U/L (0-33); Albumin Level 4.6 g/dL (3.5-5.2); Alkaline Phosphatase 86 IU/L (35-105); Anion Gap 16.1 (5-19); Aspartate Amino Transferase 11 U/L (0-32); Blood Urea Nitrogen 11 mg/dL (6-20); Calcium 9.5 mg/dL (8.5-10.5); Carbon Dioxide 22 mmol/L (22-29); Chloride 101 mmol/L (98-107); Globulin 2.4 g/dL (1.3-4.6); Glomerular Filtration Rate 99.6 mL/min (90-130); Glucose 84 mg/dL (65-115); Osmolality Calculated 279 mOsm/kg (285-295); Potassium 4.1 mmol/L (3.5-5.1); Sodium 135 mmol/L (136-145); Total Bilirubin 0.3 mg/dL (0.15-1.2)
--- NOTE | 2021-01-18 11:29 | CT_ITS ---
WS: [id number] CT ABDOMEN AND PELVIS NONCONTRAST HISTORY: L flank/CVA pain; hx of stone TECHNIQUE: Imaging performed through the abdomen and pelvis. Coronal and sagittal reformats are submi tted. All CT scans at [facility] use at least one of these dose optimization techniques: auto mated exposure control; mA and/or kV adjustment per patient size (includes targeted exams where dose is matched to clinical indication); or iterative reconstruction. DLP: 1200.3 mGy.cm COMPARISON: 06/29/2020 Lower thorax: Lung bases are clear. Visualized heart is normal. No hiatal hernia. Liver: Mild hepatomegaly and hepatic steatosis. No bile duct dilatation or mass. Gallbladder: Prior cholecystectomy. Pancreas: Normal size and attenuation. Normal pancreatic duct. No pancreatitis or mass. Spleen: Normal. Adrenal glands: Normal. No mass. Right kidney: Normal size kidney with no mass or hydronephrosis. Left kidney: Normal size kidney with no mass or hydronephrosis. Aorta: Normal abdominal aorta, no aneurysm or atherosclerosis. No free fluid, intraperitoneal air or significant lymphadenopathy. GI tract: Normal appendix. No GI tract obstruction or diverticulosis. Abdominal wall: Small umbilical hernia contains fat only. Pelvis: Normal size uterus. There is an IUD appropriately positioned. Moderate LEFT ovarian cyst sommer ures 3.7 x 4.3 cm. No free fluid. Osseous structures: Unremarkable. CT/CT kidney stone 10908 IMPRESSION: 1. Moderate-sized LEFT ovarian cyst measures 3.7 x 4.3 cm. 2. Prior cholecystectomy. 3. No renal obstruction or calcifications. 4. Normal appendix.
[2021-01-18 12:33] VITALS: BP 115/68; PULSE 62; O2SAT 96
== END 2021-01-18 12:36 | disposition home or self-care (01) ==
PROVIDERS: Emergency Provider Physician Assistant; PCP Internal Medicine
DX: N83.202 Unspecified ovarian cyst, left side (principal)
CPT/HCPCS: 74176; 80053; 81003; 81025; 85025; 96361; 96374; 96375; 99283; J1885; J2405; J7030

== ENCOUNTER → 2021-01-24 16:01 | Outpatient (BNVA) | payer OTHER, SELFPAY | PROVIDERS: PCP Internal Medicine; Visit Provider Obstetrics & Gynecology | DX: N83.202 Unspecified ovarian cyst, left side (principal); Z97.5 Presence of (intrauterine) contraceptive device | CPT/HCPCS: 76830 ==

== ENCOUNTER 2021-02-08 06:25 | Day surgery (SDC) | payer OTHER, SELFPAY ==
[2021-02-07 15:46] VITALS: BMI 29.0
[2021-02-08] VITALS (8 sets, daily range): BP systolic 104–155; BP diastolic 68–90; PULSE 64–75; RESP 16–21; TEMP 36.4–36.8; O2SAT 98–99
--- NOTE | 2021-02-08 06:31 | P.HP_ITS ---
Providers/Chief Complaint Primary Care Provider: Leopoldo Pal MD Chief Complaint: hardware removal History of Present Illness Monica Romero is a 30 year old female Presents for hardware removal left foot. Review of Systems General: Reports: 10 or more systems reviewed and unremarkable except in HPI and below Const: Denies: fever(s) or chills Eyes: Denies: change in vision Card: Denies: chest pain or palpitations Resp: Denies: dyspnea or productive cough GI: Denies: abdominal pain, nausea or vomiting : Denies: flank pain Musc: Reports: extremity pain, joint pain, joint stiffness, limited range of motion and deformity Skin/Breast: Reports: skin tenderness; Denies: rash Neuro: Reports: difficulty walking; Denies: numbness in extremities, sensory changes or frequent falls Psych: Denies: suicidal ideation Tigre/Lymph: Denies: easy bruising Medications/Allergies Home Medications Medication Instructions Recorded Confirmed Last Taken Type crutch #2 ea 03/19/20 01/11/21 Unknown Rx bone stimulator #1 ea 06/05/20 01/11/21 Unknown Rx Crutches #1 ea 07/25/20 01/11/21 Unknown Rx diltiazem HCl 240 mg 240 mg PO DAILY #30 cap 10/17/20 02/07/21 10/31/20 Rx capsule,extended release 24 hr nebivolol 5 mg tablet 5 mg PO DAILY #30 tab 10/17/20 02/07/21 10/31/20 Rx vilazodone 20 mg tablet 20 mg PO DAILY #30 tab 10/17/20 02/07/21 10/31/20 Rx loratadine 10 mg tablet 10 mg PO DAILY #30 tab 01/11/21 02/07/21 Unknown Rx Allergies Allergy/AdvReac Type Severity Reaction Status Date / Time amoxicillin Allergy Rash Verified 02/08/21 06:32 PFSH PFSH: Medical History Anxiety and depression -Was on Celexa prior to the in 2018 and self discontinued this during the and her symptoms are well-controlled with this. Does not have a therapist. -Symptoms are controlled on BuSpar and Zoloft during the and she would like to continue this as well Heartburn Diagnosed with esophagitis and gastritis on endoscopy done in February 2017. This was performed by Dr. Pal and she was taking Prilosec at the start of the . Inappropriate sinus tachycardia ---EP dr in [facility]--Dr. Dickinson; does not see anyone locally. EP study done, but no cardiac ablation; managed with diltiazem and metoprolol prior to No pertinent past medical history Denies diabetes, asthma, seizures, DVT/PE, hypertension Surgical History H/O laparoscopy (08/03/08) 08/03/2008--> done for chronic pelvic pain by Dr. Singleton. Operative findings showed removal of hemoperitoneum with fulguration of endometriotic lesions in the cul-de-sac biopsy. Fallopian tubes looked normal. Biopsy of the cul-de-sac lesions show abnormal endometrial glands. Endometrial biopsy was performed at the same time which showed mild proliferation. (Records are scanned into the all scripts ) H/O right wrist surgery (~03/2015) Done for ganglion cyst at [facility] in [place] History of bunionectomy of left great toe History of colonoscopy 2016 History of esophagogastroduodenoscopy (EGD) 2020 Status post laparoscopic cholecystectomy (10/31/20) Status post tubal ligation 09/15/2019--- [place] [facility] [place]ology showed benign fallopian tubes bilaterally with lumens. Family History Grandfather Heart disease Paternal; at age 36 of [place] Father Hypertension Family/Other Patient denies medical problems She denies family history of DVT/PE, breast, cervical, uterine, ovarian, colon cancer. Denies family history of Cervical cancer Colon cancer Ovarian cancer DVT (deep venous thrombosis) Breast cancer Pulmonary embolism Uterine cancer Social History Alcohol intake: current Alcohol intake frequency: holidays/special occasions only Marital status: Number of children: 3 History of recent travel: No Additional social history: -- Female Reproductive History: Date of last menstrual period: 10/09/20 Vital Signs Weight: Weight last 48 hrs Weight 169 lb Weight 169 lb Physical Exam Narrative: EXAM NARRATIVE: Patient is alert and oriented ?3 and in no acute distress. The following is a focused left lower extremity exam. VASCULAR: Dorsalis pedis and posterior tibial arteries palpable +2. Capillary refill time less than 3 seconds to the distal hallux bilaterally. Calf is supple and nontender proximally and distally. Mild edema at the operative site consistent with postoperative course. NEUROLOGICAL: Protective sensation intact to light touch. DERMATOLOGICAL: ell-healed cicatrix left foot x2. MUSCULOSKELETAL: Tenderness at left foot Lapidus bunionectomy site. CARDIOVASCULAR: S1, S2, normal rate, normal rhythm. Dorsalis pedis and posterior tibial arteries palpable. LUNGS: Clear to auscltation, no use of acessory muscles, no crackles or wheezes. A&P Assessment and plan (1) Painful orthopaedic hardware: Status: Acute Has been n.p.o. since midnight, informed consent signed, initialed patient's left foot. Wishes to proceed with deep hardware removal. Risks include pain, bleeding, numbness, infection, failure to remove hardware, hardware breakage, failure to alleviate pain and need for further surgical intervention. Patient is agreeable wishes to proceed. Coding Level of Care Code Acute Business Management Manager for Mina Lemon Diagnoses Painful orthopaedic hardware T84.84XA
[2021-02-08 06:41] LABS: OR HCG Qualitative Urine Negative (Negative)
[2021-02-08] MEDS: sodium chloride 0.9% 1,000 ML 30 ML IV (06:52)
--- NOTE | 2021-02-08 06:52 | ANES.PREANE2 ---
Pre-Anesthetic Assessment Pre-Anesthetic Assessment: Height/Weight: Height 1.63 m Weight 76.657 kg Temp Pulse Resp BP Pulse Ox 97.8 F 74 16 155/90 99 02/08/21 06:36 02/08/21 06:36 02/08/21 06:36 02/08/21 06:36 02/08/21 06:36 Preop Diagnosis: Painful hardware left foot Proposed Procedure: Operation Date: 02/08/21 07:00 Proposed Procedures p Hardware Removal 75100 T84.84Xa(Not Applicable) - SUMAYA AritaM Was Beta Brody taken within 24 hours: N/A Was Clonidine taken within 24 hours: N/A Last intake: Intake Last Liquid Date 02/07/21 Last Liquid Time 21:30 Last Solid Date 02/07/21 Last Solid Time 19:00 Social: Social History: No alcohol and No tobacco Exam: Pre-Anes Outpt Exam: alert, oriented x 3, clear to auscultation bilaterally and regular rate & rhythm Airway: Submandibular: WNL Cervical ROM: WNL MP: 2 Dentition: Full CV/HEM: CV/HEM: Arrythmia GI: GI: GERD Neuropsych: Neuropsych: Anxiety Anesthetic Plan: ASA status: 2 Anesthesia: General Risk of > 500 ml blood loss (7ml/kg in children): No PFSH Anesthesia PFSH: Medical History Anxiety and depression -Was on Celexa prior to the in 2018 and self discontinued this during the and her symptoms are well-controlled with this. Does not have a therapist. -Symptoms are controlled on BuSpar and Zoloft during the and she would like to continue this as well Heartburn Diagnosed with esophagitis and gastritis on endoscopy done in February 2017. This was performed by Dr. Pal and she was taking Prilosec at the start of the . Inappropriate sinus tachycardia ---EP dr in [facility]--Dr. Dickinson; does not see anyone locally. EP study done, but no cardiac ablation; managed with diltiazem and metoprolol prior to No pertinent past medical history Denies diabetes, asthma, seizures, DVT/PE, hypertension Surgical History H/O laparoscopy (08/03/08) 08/03/2008--> done for chronic pelvic pain by Dr. Singleton. Operative findings showed removal of hemoperitoneum with fulguration of endometriotic lesions in the cul-de-sac biopsy. Fallopian tubes looked normal. Biopsy of the cul-de-sac lesions show abnormal endometrial glands. Endometrial biopsy was performed at the same time which showed mild proliferation. (Records are scanned into the all scripts ) H/O right wrist surgery (~03/2015) Done for ganglion cyst at [facility] History of bunionectomy of left great toe History of colonoscopy 2016 History of esophagogastroduodenoscopy (EGD) 2020 Status post laparoscopic cholecystectomy (10/31/20) Status post tubal ligation 09/15/2019--- laparoscopic bilateral total salpingectomy for sterilization performed by Dr. Paz at [facility]. Pathology showed benign fallopian tubes bilaterally with lumens. Family History Grandfather Heart disease Paternal; at age 36 of [place] Father Hypertension Family/Other Patient denies medical problems She denies family history of DVT/PE, breast, cervical, uterine, ovarian, colon cancer. Denies family history of Cervical cancer Colon cancer Ovarian cancer DVT (deep venous thrombosis) Breast cancer Pulmonary embolism Uterine cancer Social History Alcohol intake: current Alcohol intake frequency: holidays/special occasions only Marital status: Number of children: 3 History of recent travel: No Additional social history: -- Female Reproductive History: Date of last menstrual period: 10/09/20 Data Anesthesia Other Labs: Laboratory Results - last 48 hr 02/08/21 06:30 Urine HCG, Qual Negative Cardiac Studies: No Data to Display
[2021-02-08] MEDS: midazolam 1 mg/mL INJ 2 mL 2 MG IVP (07:00)
[2021-02-08] MEDS: clindamycin 600 MG/50 ML PREMIX 100 MG IV (07:04)
[2021-02-08] MEDS: lidocaine 1% INJ 20 mL INJECTION (07:34)
--- NOTE | 2021-02-08 07:58 | XR_ITS ---
WS: [id number] XR foot LT min 3V* [id number] REASON FOR EXAM: post op FINDINGS: Removal of first tarsal metatarsal arthrodesis hardware. No remaining hardware at the site. Joint spa ce appears fused. Other surgical appliances in the great toe and fifth metatarsal remain in proper position and alignme nt, unchanged compared to 12/03/2020. XR/XR foot LT min 3V* [id number] IMPRESSION: Hardware removal as above.
--- NOTE | 2021-02-08 07:59 | PM.OP ---
Operative Report Date of procedure: February 08, 2021 Pre-op Diagnosis: Painful hardware left foot Post-op diagnosis: same Post-op Findings: Same Procedure Done: Deep hardware removal left foot Implants: 4-0 Vicryl and 4-0 nylon Specimens removed/disposition: Screws x5 and plate x1 Pathology: none sent Surgeon: Trey Harkins D.P.M. Software Build Engineer: Joana Anesthesia: MAC Estimated blood loss: Less than 5 Tourniquet time: See intraoperative documentation IV fluids: None Urine output: None Complications: None Findings: None Condition: stable Disposition: PACU Brief History: Painful hardware at the Lapidus bunionectomy site necessitating removal. Risks include pain, bleeding, numbness, infection, hardware failure, failure to alleviate pain and need for further surgical intervention. Procedure: Under mild sedation the patient was brought to the operating room and remained on the gurney in supine position. A timeout was performed. Anesthesia was then administered by the anesthesia service. Local anesthesia injected by myself consisting of 30 cc of one-to-one mixture 1% lidocaine and 0.5% Marcaine plain. Well-padded pneumatic tourniquet applied to the left ankle. Local block was a proximal Ontiveros of the left foot. Left lower extremity was scrubbed, prepped and draped utilizing normal aseptic technique. Left foot was wrapped with an Esmarch bandage and tourniquet inflated to 250 mmHg. Attention was directed to the left foot previous cicatrix from the Lapidus bunionectomy site where a linear longitudinal incision was made with a #15 blade with dissection carried down through subcutaneous tissue down the level of the plate with blunt and sharp dissection. Care was taken to retract and preserve neurovascular and tendinous structures. All bleeders were ligated and cauterized as necessary. Total of 5 screws and 1 plate removed all hardware from the Lapidus arthrodesis site was removed in toto and passed from the operative field. Area was irrigated with copious amounts of sterile saline solution. Arthrodesis site appeared to be well matured without motion. Closure with 4-0 Vicryl and 4-0 nylon. Dressings applied consisting of Adaptic, sterile 4 x 4, Kerlix and Ric wrap. Tourniquet was deflated and a prompt hyperemic response was noted to the distal digits of the left foot. Patient tolerated procedure well and was transferred to the PACU with no sign stable and vascular status intact. Following a period of postoperative monitoring she will be discharged home may be weightbearing as tolerated with a cam boot. Cam boot was applied.
[2021-02-08] MEDS: oxyCODONE-APAP 10-325 mg Tablet 1 TAB PO (08:20)
--- NOTE | 2021-02-08 13:15 | ANE.PACU2 ---
Inpatient post-anesthesia follow up: Airway intact: Yes Vital signs: Temperature 97.8 F Pulse Rate 67 Respiratory Rate 17 Blood Pressure 113/82 Pulse Oximetry 99 Oxygen Delivery Me thod Room Air Oxygen Flow Rate Fraction of Inspir ed Oxygen Hydration adequate: Yes Nausea and vomiting: No Pain level: 2 Mental status: Baseline
== END 2021-02-08 08:43 | disposition home or self-care (01) ==
PROVIDERS: PCP Internal Medicine; Visit Provider Podiatrist Foot & Ankle Surgery
PROC: (CPT 20680; principal; 2021-02-08 07:00)
DX: T84.84XA Pain due to internal orthopedic prosthetic devices, implants and grafts, initial encounter (principal); F41.9 Anxiety disorder, unspecified; K21.9 Gastro-esophageal reflux disease without esophagitis; F32.9 Major depressive disorder, single episode, unspecified; Z82.49 Family history of ischemic heart disease and other diseases of the circulatory system
CPT/HCPCS: 20680; 73630; 81025; 84703; 96374; J2250; J2704; J3010; J3490; J7030

== ENCOUNTER → 2021-03-26 12:53 | Outpatient (BNVA) | payer OTHER, SELFPAY | PROVIDERS: PCP Internal Medicine; Visit Provider Obstetrics & Gynecology | DX: N83.202 Unspecified ovarian cyst, left side (principal) | CPT/HCPCS: 76830 ==

== ENCOUNTER → 2021-04-03 13:58 | Outpatient (BNVA) | payer OTHER, SELFPAY | PROVIDERS: PCP Internal Medicine; Visit Provider Podiatrist Foot & Ankle Surgery | DX: Z98.890 Other specified postprocedural states (principal) | CPT/HCPCS: 73630 ==

== ENCOUNTER 2021-04-29 11:54 | Outpatient (CLI) | payer OTHER, SELFPAY ==
--- NOTE | 2021-04-29 12:03 | XR_ITS ---
WS: [id number] Left foot, 3 views, 04/29/2021 Clinical Data: Z98.890 - Other specified postprocedural states Comparison: Left foot, 04/03/2021. Findings: The osteotomy of the left first proximal phalanx with a staple remains same. There is an osteotomy of the distal left fifth metatarsal with a plate and screw which remains same. Remainder of the foot sh ows no change. XR/XR foot LT min 3V* [id number] Impression: No change in osteotomies of the left foot.
== END 2021-04-29 11:55 | disposition home or self-care (01) ==
PROVIDERS: PCP Internal Medicine; Visit Provider Podiatrist Foot & Ankle Surgery
DX: Z98.890 Other specified postprocedural states (principal)
CPT/HCPCS: 73630

== ENCOUNTER 2021-05-02 14:53 | Outpatient (CLI) | payer OTHER, SELFPAY | END 2021-05-02 14:54 | disposition home or self-care (01) | LOC: SPT 14:55 | PROVIDERS: PCP Internal Medicine; Visit Provider Podiatrist Foot & Ankle Surgery | DX: Z98.890 Other specified postprocedural states (principal) | CPT/HCPCS: 97760; L3030 ==

== ENCOUNTER → 2021-05-15 14:45 | Outpatient (BNVA) | payer OTHER, SELFPAY | PROVIDERS: PCP Internal Medicine; Visit Provider Obstetrics & Gynecology | DX: Z12.4 Encounter for screening for malignant neoplasm of cervix (principal) | CPT/HCPCS: 88175 ==

== ENCOUNTER → 2021-07-19 12:01 | Outpatient (BNVA) | payer BC, SELFPAY | PROVIDERS: PCP Internal Medicine; Visit Provider Nurse Practitioner Family | DX: I10 Essential (primary) hypertension (principal) | CPT/HCPCS: 80053 ==

== ENCOUNTER → 2021-07-22 15:52 | Outpatient (BNVA) | payer BC, SELFPAY | PROVIDERS: PCP Internal Medicine; Visit Provider Nurse Practitioner Family | DX: I10 Essential (primary) hypertension (principal); R53.83 Other fatigue; Z71.6 Tobacco abuse counseling | CPT/HCPCS: 81000; 84443 ==

== ENCOUNTER 2021-08-15 12:44 | Outpatient (CLI) | payer BC, SELFPAY ==
--- NOTE | 2021-08-15 13:00 | CT_ITS ---
WS: [id number] CT ABDOMEN PELVIS TECHNIQUE: Noncontrast CT of the abdomen and pelvis with coronal and sagittal reformatted images. CLINICAL INFORMATION: Severe right flank pain. COMPARISON: January 18, 2021 DLP: 1079.[address] scans at [facility] use at least one of these dose optimization techniques: automated e xposure control; mA and/or kV adjustment per patient size (includes targeted exams where dose is matc hed to clinical indication); or iterative reconstruction. FINDINGS: Noncontrast liver is normal. Normal noncontrast spleen. Normal GE junction. Prior cholecystectomy. Ad renal glands are normal. No hydronephrosis in either kidney. No obstructing or ureteral calculi. Lung bases are well aerated. Normal caliber abdominal aorta. Noncontrast pancreas is normal. Normal caliber abdominal aorta. No periaortic lymphadenopathy. Fat-co ntaining umbilical hernia. Sigmoid diverticulosis. No evidence of acute diverticulitis. IUD in place. Large RIGHT adnexal cystic lesion measuring 5.2 x 5.3 cm is new from previous. Previously described LEFT adnexal cyst is no phil eduardo visualized. Appendix appears normal. CT/CT kidney stone [id number] IMPRESSION: 1. No hydronephrosis in either kidney. No obstructing renal or ureteral calcul i. 2. Prior cholecystectomy. 3. IUD in place. 4. RIGHT adnexal cystic lesion measuring 5.3 x 5.2 cm appears new from previou s. This can be further evaluated with ultrasound. 5. Tiny fat-containing umbilical hernia.
== END 2021-08-15 12:45 | disposition home or self-care (01) ==
LOC: RAD 12:46
PROVIDERS: PCP Internal Medicine; Visit Provider Internal Medicine
DX: Z90.49 Acquired absence of other specified parts of digestive tract (principal); Z97.5 Presence of (intrauterine) contraceptive device; K42.9 Umbilical hernia without obstruction or gangrene
CPT/HCPCS: 74176

== ENCOUNTER 2021-08-16 12:20 | Emergency (ER) | payer BC, SELFPAY ==
[2021-08-16 12:33] VITALS: BP 151/103; PULSE 90; RESP 16; TEMP 36.7; O2SAT 98; BMI 29.2
--- NOTE | 2021-08-16 13:05 | W.ED.ABDPA2 ---
HPI - Abdominal Pain General: Chief Complaint: Abdominal Pain Stated Complaint: ABD Pain, Had CT yesterday Time Seen by Provider: 08/16/21 12:43 History of Present Illness: Patient is a 31-year-old female comes to the ED with abdominal pain. Symptoms started approximately 5 days ago. The abdominal pain was initially in the right flank and more of a mild pain. She saw Dr. Pal on August 14 for evaluation of right flank pain and there was some blood found in her urine so we referred her to get a CT of her abdomen. CT of her abdomen was done yesterday and it showed no kidney stones, but did note a large right adnexal cyst and she was recommended to come here to the ED for further evaluation. She is currently having 8 out of 10 pain in the right lower quadrant of her abdomen. Over the past 24 hours pain has gotten worse. She endorses nausea and vomiting as well. Past surgical history of cholecystectomy and tubal ligation. Denies any fevers. Denies any dysuria or hematuria. Associated Symptoms: Reports nausea and vomiting; Denies chills, constipation, diarrhea, dysuria, fever(s), hematochezia and hematuria Related Data: Date of Last Menstrual Period: 10/09/20 Review of Systems Const: Denies: fever(s), chills or fatigue Eyes: Denies: change in vision or eye discomfort ENMT: Denies: throat pain, odynophagia, nasal discharge or nasal congestion Card: Denies: chest pain, palpitations, edema, swelling of feet/ankles, dyspnea on exertion or orthopnea Resp: Denies: dyspnea, productive cough or non-productive cough GI: Reports: abdominal pain, nausea and vomiting; Denies: diarrhea, constipation or hematochezia : Denies: flank pain, dysuria or hematuria Musc: Denies: neck pain, back pain or extremity swelling Skin/Breast: Denies: rash or new lesions Neuro: Denies: headache(s), numbness in extremities or weakness in extremities PFS ED PFSH: Medical History Anxiety and depression Symptoms well controlled on medication managed by her primary care provider. Heartburn Diagnosed with esophagitis and gastritis on endoscopy done in February 2017. This was performed by Dr. Pal and she was taking Prilosec at the start of the . Inappropriate sinus tachycardia ---EP dr in [facility]--Dr. Dickinson; EP study done, but no cardiac ablation; ---> Controlled on medication managed by her primary care provider. Does not have a health center associate- No pertinent past medical history Denies diabetes, asthma, seizures, DVT/PE, hypertension PMD: Dr. Pal Surgical History H/O laparoscopy (08/03/08) 08/03/2008--> done for chronic pelvic pain by Dr. Singleton. Operative findings showed removal of hemoperitoneum with fulguration of endometriotic lesions in the cul-de-sac biopsy. Fallopian tubes looked normal. Biopsy of the cul-de-sac lesions show abnormal endometrial glands. Endometrial biopsy was performed at the same time which showed mild proliferation. (Records are scanned into the all scripts ) H/O right wrist surgery (~03/2015) Done for ganglion cyst at [facility] History of bunionectomy of left great toe 2019--had problems with the hardware and had a revision surgery in February 2021. This was done at [facility] History of colonoscopy 2016 History of esophagogastroduodenoscopy (EGD) 2020 Status post laparoscopic cholecystectomy (10/31/20) Laparoscopic procedure performed by Dr. Ballesteros at [facility] Status post tubal ligation 09/15/2019--- laparoscopic bilateral total salpingectomy for sterilization performed by Dr. Paz at [facility]. Pathology showed benign fallopian tubes bilaterally with lumens. Family History Grandfather Heart disease Paternal; at age 36 of [place] Father Hypertension Mother Diabetes Family/Other Diabetes maternal aunt Grandmother Diabetes maternal Denies family history of Cervical cancer Colon cancer Ovarian cancer DVT (deep venous thrombosis) Hyperlipidemia Breast cancer Pulmonary embolism Lung disease Uterine cancer Thyroid condition Stroke Social History Smoking and tobacco status: current every day smoker cigarettes Quit status (tobacco): has tried quititng Second hand smoke exposure: No Smoking risk assessment/counseling performed?: Yes Tobacco counseling given: provider counseling and counseling >3 minutes Female Reproductive History: Date of last menstrual period: 10/09/20 Physical Exam Const: COMMON NORMALS: patient oriented x3 and alert GENERAL APPEARANCE: cooperative HENMT: COMMON NORMALS: normocephalic HEAD & SCALP: normocephalic MOUTH: Normal oral and palatal mucosa present THROAT: posterior oropharynx normal and uvula midline Neck/C-Spine: COMMON NORMALS: supple GENERAL: Yes normal visual inspection Resp: COMMON NORMALS: normal respiratory effort, No retractions, No use of accessory muscles and clear to auscultation bilaterally AUSCULTATION: clear to auscultation bilaterally Cardio: COMMON NORMALS: regular rate, regular rhythm, S1 normal heart sound present, S2 normal heart sound present, No gallops present (Cardio), No clicks present (Cardio), No murmurs present (Cardio) and Peripheral pulses 2+ throughout RATE: regular rate RHYTHM: regular rhythm HEART SOUNDS: S1 normal heart sound present and S2 normal heart sound present PERIPHERAL PULSES: Peripheral pulses 2+ throughout GI: COMMON NORMALS: Normal to inspection, nondistended, normoactive bowel sounds present, Soft to palpation and no masses PALPATION: Yes Soft to palpation and Yes Tenderness to palpation present (GI) Details: RLQ : BLADDER/KIDNEY EXAM: Yes CVA tenderness Back/Pelvis: GENERAL BACK: Yes CVA tenderness CVA tenderness: right Extremity: COMMON NORMALS: normal to inspection Neuro: COMMON NORMALS: patient oriented x3 SENSORIUM/ORIENTATION: Yes alert GAIT: Yes Normal gait present Skin: GENERAL SKIN EXAM: dry skin Course Vital Signs: Vital signs: Vital Signs Temperature 98.0 F 08/16/21 12:33 Pulse Rate 60 08/16/21 14:50 Respiratory Rate 16 08/16/21 14:50 Blood Pressure 121/76 08/16/21 14:50 Pulse Oximetry 98 08/16/21 14:50 MDM - Abdominal Pain Medical Decision Making Patient is a 31-year-old female comes to the ED with right sided abdominal pain. She has been having the symptoms now for the past 5 days and she saw Dr. Pal a couple days ago and he ordered a CT of the abdomen. She had a CT of her abdomen done yesterday August 15 and it showed that she had a right ovarian cyst and they recommended she get a pelvic ultrasound for further evaluation. Due to her pain Dr. Pal told her to come here to the ED to be evaluated. Vitals are stable. She has tenderness in her right lower quadrant. The rest of her exam is benign and patient appears nontoxic and in no acute distress. CBC, CMP and UA unremarkable. hCG negative. Pelvic ultrasound showed a complex right ovarian cyst. Patient's symptoms were controlled with IV pain meds, fluids and Zofran. She was stable for discharge home. She was diagnosed with a complex cyst of right ovary and was told to follow-up with her [employer] doctor within the next week for reevaluation. She was sent home with a prescription for Aguila and Zofran. Return to ED precautions given patient understood and agreed with plan. Lab Data I reviewed the patient's lab results. : 08/16/21 13:00 08/16/21 13:00 Labs/Radiology: Radiology Impressions Pelvis Ultrasound 08/16/21 13:10 Impression: Complex right ovarian cyst which may represent a hemorrhagic cyst. Laboratory Results WBC 9.1 10^3/uL (4.0-10.0) 08/16/21 13:00 RBC 5.02 10^6/uL (4.1-5.3) 08/16/21 13:00 Hgb 15.6 g/dL (11.5-15.3) H 08/16/21 13:00 Hct 45.4 % (37.0-47.0) 08/16/21 13:00 MCV 90.4 fl (81-99) 08/16/21 13:00 MCH 31.1 pg (28.0-34.0) 08/16/21 13:00 MCHC 34.4 g/dL (30.0-36.0) 08/16/21 13:00 RDW 11.8 % (12.1-15.1) L 08/16/21 13:00 Plt Count 257 10^3/cmm (130-400) 08/16/21 13:00 MPV 10.1 fL (7.4-10.4) 08/16/21 13:00 Neut % (Auto) 64.6 % 08/16/21 13:00 Lymph % (Auto) 27.3 % 08/16/21 13:00 [place] % (Auto) 6.3 % 08/16/21 13:00 Eos % (Auto) 0.8 % 08/16/21 13:00 Baso % (Auto) 0.4 % 08/16/21 13:00 Neut # (Auto) 5.85 10^3/uL (1.8-7.7) 08/16/21 13:00 Lymph # (Auto) 2.5 10^3/uL (0.8-4.8) 08/16/21 13:00 [place] # (Auto) 0.6 10^3/uL (0.2-0.9) 08/16/21 13:00 Eos # (Auto) 0.1 10^3/uL (0.0-0.8) 08/16/21 13:00 Baso # (Auto) 0.0 10^3/uL (0.0-0.1) 08/16/21 13:00 Nucleated RBC % (auto) 0 % 08/16/21 13:00 Nucleated RBCs # 0.0 /100WBC 08/16/21 13:00 Sodium 132 mmol/L (136-145) L 08/16/21 13:00 Potassium 4.2 mmol/L (3.5-5.1) 08/16/21 13:00 Chloride 96 mmol/L (98-107) L 08/16/21 13:00 Carbon Dioxide 21 mmol/L (22-29) L 08/16/21 13:00 Anion Gap 19.2 (5-19) H 08/16/21 13:00 BUN 8 mg/dL (6-20) 08/16/21 13:00 Creatinine 0.5 mg/dL (0.5-0.9) 08/16/21 13:00 GFR Calculation 145.9 mL/min (90-130) H 08/16/21 13:00 Glucose 98 mg/dL (65-115) 08/16/21 13:00 Calculated Osmolality 272 mOsm/kg (285-295) L 08/16/21 13:00 Calcium 9.1 mg/dL (8.5-10.5) 08/16/21 13:00 Total Bilirubin 0.5 mg/dL (0.15-1.2) 08/16/21 13:00 AST 24 U/L (0-32) 08/16/21 13:00 ALT 17 U/L (0-33) 08/16/21 13:00 Alkaline Phosphatase 71 IU/L (35-105) 08/16/21 13:00 Total Protein 8.0 g/dL (6.6-8.7) 08/16/21 13:00 Albumin 5.3 g/dL (3.5-5.2) H 08/16/21 13:00 Globulin 2.7 g/dL (1.3-4.6) 08/16/21 13:00 Lipase 13 U/L (13-60) 08/16/21 13:00 HCG, Qual Negative (Negative) 08/16/21 13:00 Urine Color Yellow (Yellow) 08/16/21 13:00 Urine Appearance Clear (CLEAR) 08/16/21 13:00 Urine pH 6.5 (5-7) 08/16/21 13:00 Ur Specific [place] 1.000 (1.005-1.030) L 08/16/21 13:00 Urine Protein Neg (Negative) 08/16/21 13:00 Urine Glucose (UA) Norm (Normal) 08/16/21 13:00 Urine Ketones Negative (Negative) 08/16/21 13:00 Urine Blood Neg (Negative) 08/16/21 13:00 Urine Nitrate Negative (Negative) 08/16/21 13:00 Urine Bilirubin Neg (Negative) 08/16/21 13:00 Urine Urobilinogen Norm mg/dL (Negative) 08/16/21 13:00 Ur Leukocyte Esterase Negative (Negative) 08/16/21 13:00 Discharge Plan Discharge Patient Disposition: Home Clinical Impression: Complex cyst of right ovary Condition: Stable Prescriptions: New ondansetron 4 mg tablet,disintegrating 4 mg PO Q8H PRN (Reason: nausea and vomiting) Qty: 15 0RF No Action Mirena 20 mcg/24 hours (6 yrs) 52 mg intrauterine device intrauterine .every 5 years 0RF Label Comments: Placed January 2020 vilazodone 40 mg tablet 40 mg PO DAILY Qty: 30 3RF Rx Instructions: must administer with a meal/food diltiazem HCl 240 mg capsule,extended release 24hr 240 mg PO DAILY Qty: 30 3RF Rx Instructions: 340B hydrocodone-acetaminophen 5-325 mg tablet 1 tab PO Q8H PRN (Reason: pain) 7 Days Qty: 10 0RF Bystolic 5 mg tablet 5 mg PO DAILY Qty: 30 5RF Rx Instructions: 340B spironolacton-hydrochlorothiaz [Aldactazide] 25-25 mg tablet 1 tab PO DAILY Qty: 30 0RF Discharge Orders: Discharge ED (Routine); Ordered 08/16/21 Ordered By: Omar Hayward Referrals: Leopoldo Pal MD [Primary Care Provider] - Discharge Diet: Regular Discharge Activity: Increase activity as tolerated Patient Instructions: Ovarian Cyst (ED), Opioid Safety Activity Restrictions/Additional Instructions: Follow-up with your [employer] doctor next week for reevaluation. Take medications as prescribed. Return to the ER or your medical provider if condition worsens. Please read and understand discharge instructions. Thank you for choosing [facility] for your healthcare needs today. Please realize this is an emergency room and that we are providing you with a medical screening exam and this may not be complete and all inclusive of all the testing and or work up that you may need to determine your ailment or severity of your illness. It is very important that you follow up as instructed or that you return to the Emergency Department should you have concerns or if your condition changes or worsens in any way. Coding Level of Care Code ED Care Transition Coordinator for Mina Fwd Exam Comprehensive
[2021-08-16 13:06] LABS: Add Urine Microscopic? NO; Charge for UA Resulting for Rev
[2021-08-16 13:07] LABS: Basophils % 0.4 %; Eosinophils # 0.1 10^3/uL (0.0-0.8); Eosinophils % 0.8 %; Hematocrit 45.4 % (37.0-47.0); Hemoglobin 15.6 g/dL (11.5-15.3); Lymphocytes # 2.5 10^3/uL (0.8-4.8); Lymphocytes % 27.3 %; Mean Corpuscular HGB Conc 34.4 g/dL (30.0-36.0); Mean Corpuscular Hemoglobin 31.1 pg (28.0-34.0); Mean Corpuscular Volume 90.4 fl (81-99); Mean Platelet Volume 10.1 fL (7.4-10.4); Monocytes # 0.6 10^3/uL (0.2-0.9); Monocytes % 6.3 %; Neutrophils # 5.85 10^3/uL (1.8-7.7); Neutrophils % 64.6 %; Nucleated Red Blood Cells % 0 %; Platelet Count 257 10^3/cmm (130-400); Red Blood Count 5.02 10^6/uL (4.1-5.3); Red Cell Distribution Width 11.8 % (12.1-15.1); White Blood Count 9.1 10^3/uL (4.0-10.0)
--- NOTE | 2021-08-16 13:10 | US_ITS ---
WS: [id number] Pelvic ultrasound, 08/16/2021 Clinical Data: Right Lower pelvic pain-ct showed adnexal cyst Comparison: None. Findings: The uterus measures 8.3 cm x 4.1 cm x 3.2 cm. There is an IUD in the endometrium of the uterus. The endometrium is 0.5 cm. No intrauterine or abnormal intrauterine mass is seen. The left ovary measures 2.4 cm x 1.7 cm x 1.4 cm with no cysts or masses. There is a complex right ovarian cyst measuring 4.94 x 5.11 x 5.72 cm which shows decreased mixed ech otexture. US/US pelvic complete* [id number] Impression: Complex right ovarian cyst which may represent a hemorrhagic cyst.
[2021-08-16 13:12] LABS: Bilirubin Urine Neg (Negative); Blood Urine Neg (Negative); Glucose Urine UA Norm (Normal); Ketones Urine Negative (Negative); Leukocyte Esterase Urine Negative (Negative); Nitrate Urine Negative (Negative); Protein Urine Neg (Negative); Urine Appearance Clear (CLEAR); Urine Color Yellow (Yellow); Urobilinogen Urine Norm (Negative); pH Urine 6.5 (5-7)
[2021-08-16] MEDS: ondansetron 2 mg/ML SDV 2 mL 4 MG IVP (13:20)
[2021-08-16 13:22] VITALS: RESP 16
[2021-08-16] MEDS: morphine 4 mg/mL SDV 1 mL IVP (13:22)
[2021-08-16] MEDS: sodium chloride 0.9% 1,000 ML 999 ML IV (13:25)
[2021-08-16 13:26] LABS: Alanine Aminotransferase 17 U/L (0-33); Albumin Level 5.3 g/dL (3.5-5.2); Alkaline Phosphatase 71 IU/L (35-105); Blood Urea Nitrogen 8 mg/dL (6-20); Calcium 9.1 mg/dL (8.5-10.5); Carbon Dioxide 21 mmol/L (22-29); Chloride 96 mmol/L (98-107); Globulin 2.7 g/dL (1.3-4.6); Glomerular Filtration Rate 145.9 mL/min (90-130); Glucose 98 mg/dL (65-115); Lipase 13 U/L (13-60); Osmolality Calculated 272 mOsm/kg (285-295); Sodium 132 mmol/L (136-145); Total Bilirubin 0.5 mg/dL (0.15-1.2)
[2021-08-16 13:29] LABS: Anion Gap 19.2 (5-19); Aspartate Amino Transferase 24 U/L (0-32); Potassium 4.2 mmol/L (3.5-5.1)
[2021-08-16 13:34] LABS: HCG, Serum Qual Negative (Negative)
[2021-08-16] MEDS: HYDROcodone-acetaminophen 7.5-325 mg Tablet 1 TAB PO (14:49)
[2021-08-16 14:50] VITALS: BP 121/76; PULSE 60; RESP 16; O2SAT 98
== END 2021-08-16 14:54 | disposition home or self-care (01) ==
PROVIDERS: Emergency Provider Physician Assistant; PCP Internal Medicine
DX: N83.201 Unspecified ovarian cyst, right side (principal); F17.210 Nicotine dependence, cigarettes, uncomplicated
CPT/HCPCS: 76856; 80053; 81003; 83690; 84703; 85025; 96374; 96375; 99283; J2270; J2405; J7030

== ENCOUNTER 2021-08-27 | Outpatient (CLI) | payer BC, SELFPAY | END 2021-08-27 00:01 | disposition home or self-care (01) | LOC: RAD 09-09 14:58 | PROVIDERS: PCP Internal Medicine; Visit Provider Nurse Practitioner Family | DX: N83.201 Unspecified ovarian cyst, right side (principal) | CPT/HCPCS: 76830 ==

== ENCOUNTER → 2022-09-17 14:00 | Outpatient (BNVA) | payer OTHER, SELFPAY | PROVIDERS: PCP Family Medicine; Visit Provider Nurse Practitioner Women's Health | DX: R23.2 Flushing (principal) | CPT/HCPCS: 82533; 82670; 83001; 84144; 84146; 84439; 84443 ==

== ENCOUNTER 2022-11-30 14:30 | Emergency (ER) | payer OTHER, SELFPAY ==
[2022-11-30 14:35] VITALS: BP 150/84; PULSE 103; RESP 16; TEMP 36.8; O2SAT 99; BMI 28.8
--- NOTE | 2022-11-30 14:38 | ECG_ITS ---
[facility] Test Date: 2022-11-30 Pat Name: Monica Romero Department: Room: Gender: Female [employer] Fe[employer]: : 1990 Requested By: Tony Bañuelos Order Number: [id number] Jatinder MD: Rafael Hernandez M.D. Measurements Intervals [place] Rate: 111 P: 44 MI: 170 QRS: 46 QRSD: 86 T: 58 QT: 324 QTc: 442 Interpretive Statements SINUS TACHYCARDIA POSSIBLE LEFT ATRIAL ENLARGEMENT [-0.1mV P-WAVE IN V1/V2] NONSPECIFIC ST & T-WAVE ABNORMALITY Compared to ECG 03/31/2017 18:55:08 T-wave abnormality now present Sinus rhythm no longer present Electronically Signed On 12-01-2022 8:31:00 CDT by Rafael Hernandez M.D. [id number]
--- NOTE | 2022-11-30 14:48 | XRR_ITS ---
PROCEDURE INFORMATION: Exam: XR Chest Exam date and time: 11/30/2022 3:19 PM Age: 32 years old Clinical indication: Other: Tachycardia TECHNIQUE: Imaging protocol: Radiologic exam of the chest. Views: 1 view. COMPARISON: CR XR chest 1V [id number] 03/31/2017 7:47 PM FINDINGS: Lungs: Unremarkable. No consolidation. Pleural spaces: Unremarkable. No pleural effusion. No pneumothorax. Heart/Mediastinum: Unremarkable. No cardiomegaly. Bones/joints: Unremarkable for age. XR/XR chest 1V portable [id number] IMPRESSION: Negative chest exam.
[2022-11-30 15:06] VITALS: BP 146/98; PULSE 92; RESP 18; O2SAT 98
[2022-11-30] MEDS: sodium chloride 0.9% 1,000 ML 999 ML IV (15:12)
[2022-11-30] MEDS: ondansetron 2 mg/ML SDV 2 mL 4 MG IVP (15:12)
[2022-11-30 15:16] LABS: Basophils % 0.5 %; Eosinophils # 0.1 10^3/uL (0.0-0.8); Hematocrit 45.2 % (37.0-47.0); Hemoglobin 14.9 g/dL (11.5-15.3); Lymphocytes # 2.7 10^3/uL (0.8-4.8); Lymphocytes % 46.4 %; Mean Corpuscular Hemoglobin 28.4 pg (28.0-34.0); Mean Corpuscular Volume 86.3 fl (81-99); Mean Platelet Volume 10.4 fL (7.4-10.4); Monocytes # 0.5 10^3/uL (0.2-0.9); Monocytes % 8.1 %; Neutrophils # 2.52 10^3/uL (1.8-7.7); Neutrophils % 43.8 %; Nucleated Red Blood Cells % 0 %; Platelet Count 351 10^3/cmm (130-400); Red Blood Count 5.24 10^6/uL (4.1-5.3); Red Cell Distribution Width 11.8 % (12.1-15.1); White Blood Count 5.8 10^3/uL (4.0-10.0)
--- NOTE | 2022-11-30 15:48 | W.ED.CHESTPA ---
HPI - Chest Pain General: Chief Complaint: Chest Pain Stated Complaint: dizzy, chest pain Time Seen by Provider: 11/30/22 14:48 History of Present Illness: Patient presents to the ER with sudden onset chest pain nausea vomiting diaphoresis. Patient states she has a intermittent tachyarrhythmia that causes her heart rate to go up to the 140s 150s. Patient said this time it spiked with with out any sort of stimulation. Patient is on clonidine, diltiazem, Bystolic, all from the clinical appeals rn for these. Patient has admitted she has been out of her clonidine for the last couple weeks but is adamant that she takes her diltiazem and Bystolic every single day. This pain has stopped by the time the patient got to the ER patient says she still does not feel quite right and feels weak and weird all over. Patient has had this happen multiple times in the past with the exact same feelings although not quite this severe. Review of Systems General: Reports: 10 or more systems reviewed and unremarkable except in HPI and below PFSH ED PFSH: Medical History Anxiety and depression Symptoms well controlled on medication managed by her primary care provider. Heartburn Diagnosed with esophagitis and gastritis on endoscopy done in February 2017. This was performed by Dr. Pal and she was taking Prilosec at the start of the . Inappropriate sinus tachycardia ---EP dr in [facility]--Dr. Dickinson; EP study done, but no cardiac ablation; ---> Controlled on medication managed by her primary care provider. Does not have a clinical appeals rn- No pertinent past medical history Denies diabetes, asthma, seizures, DVT/PE, hypertension PMD: Dr. Pal Recurrent cold sores Right flank pain Sore throat and laryngitis Surgical History H/O laparoscopy (08/03/08) 08/03/2008--> done for chronic pelvic pain by Dr. Singleton. Operative findings showed removal of hemoperitoneum with fulguration of endometriotic lesions in the cul-de-sac biopsy. Fallopian tubes looked normal. Biopsy of the cul-de-sac lesions show abnormal endometrial glands. Endometrial biopsy was performed at the same time which showed mild proliferation. (Records are scanned into the all scripts ) H/O right wrist surgery (~03/2015) Done for ganglion cyst at [facility] in [place] History of bunionectomy of left great toe 2019--had problems with the hardware and had a revision surgery in February 2021. This was done at [facility] History of colonoscopy 2016 History of esophagogastroduodenoscopy (EGD) 2020 Status post laparoscopic cholecystectomy (10/31/20) Laparoscopic procedure performed by Dr. Ballesteros at [facility] Status post tubal ligation 09/15/2019--- laparoscopic bilateral total salpingectomy for sterilization performed by Dr. Paz at [facility]. Pathology showed benign fallopian tubes bilaterally with lumens. Family History Grandfather Heart disease Paternal; at age 36 of [place] Father Hypertension Mother Diabetes Family/Other Diabetes maternal aunt Grandmother Diabetes maternal Denies family history of Cervical cancer Colon cancer Ovarian cancer DVT (deep venous thrombosis) Hyperlipidemia Breast cancer Pulmonary embolism Lung disease Uterine cancer Thyroid condition Stroke Social History Smoking and tobacco status: current every day smoker e-cigarettes E-Cigarette Details: vaporizer device E-cig/vape details: previous 9PY (quit 2020) Alcohol intake: former Substance/Drug Use: never Lives independently: Yes Marital status: Number of children: 3 Current occupational status: employed Current occupation: [employer] Current gender identity: Female Special preston needs: No Agree to transfusion: Yes Physical Exam Const: COMMON NORMALS: no acute distress, average body habitus, patient oriented x3, no limitations, healthy appearing, alert and well nourished HENMT: COMMON NORMALS: normocephalic, atraumatic, hearing grossly normal bilaterally, external ears normal, Normal external nose present and moist oral mucous membranes HEAD & SCALP: normocephalic and atraumatic NOSE: Normal external nose present EXTERNAL EAR: Yes external ears normal Neck/C-Spine: COMMON NORMALS: full ROM, no lymphadenopathy, supple, no meningeal signs, no JVD and Thyroid normal THYROID: Thyroid normal Chest: COMMONS NORMALS: normal inspection of the chest and normal palpation of entire chest wall Resp: COMMON NORMALS: normal respiratory effort, No retractions, No use of accessory muscles and clear to auscultation bilaterally AUSCULTATION: clear to auscultation bilaterally Cardio: COMMON NORMALS: no JVD, regular rate, regular rhythm, S1 normal heart sound present, S2 normal heart sound present, No gallops present (Cardio), No clicks present (Cardio), No murmurs present (Cardio) and No rub (Cardio) RATE: regular rate RHYTHM: regular rhythm HEART SOUNDS: S1 normal heart sound present and S2 normal heart sound present GI: COMMON NORMALS: Normal to inspection, nondistended, normoactive bowel sounds present, Soft to palpation, non-tender and No hepatosplenomegaly present PALPATION: Yes Soft to palpation and Yes No hepatosplenomegaly present : COMMON NORMALS: Yes no CVA tenderness BLADDER/KIDNEY EXAM: Yes no CVA tenderness Back/Pelvis: COMMON NORMALS: no CVA tenderness Neuro: COMMON NORMALS: patient oriented x3 SENSORIUM/ORIENTATION: Yes alert MENINGEAL SIGNS: Yes no meningeal signs Course Vital Signs: Vital signs: Vital Signs Temperature 98.2 F 11/30/22 14:35 Pulse Rate 72 11/30/22 16:54 Respiratory Rate 16 11/30/22 16:54 Blood Pressure 146/98 11/30/22 15:06 Pulse Oximetry 99 11/30/22 16:54 Oxygen Delivery Me thod Room Air 11/30/22 16:54 MDM - Chest Pain Medical Decision Making Patient presents to the ER with complaints of chest pain, tachycardia will with nausea and vomiting. Patient has these episodes frequently and she got diagnosed with intermittent tachycardic syndrome. Patient has stated she forgot to take her clonidine for multiple days possibly multiple weeks. Physical exam was performed cardiac work-up was obtained which was essentially negative. Patient be discharged home with atypical chest pain and intermittent tachycardia. Patient should follow-up with her PCP in the next 1 week. Differential Diagnosis Unlikely acute massive pulmonary embolism, acute respiratory failure, acute myocardial infarction, cardiac arrest or sudden cardiac Medical Records I reviewed the patient's medical records. Lab Data I reviewed the patient's lab results. 11/30/22 15:00 11/30/22 15:40 Radiology Impressions Chest X-Ray 11/30/22 14:48 IMPRESSION: Negative chest exam. Laboratory Results WBC 5.8 10^3/uL (4.0-10.0) 11/30/22 15:00 RBC 5.24 10^6/uL (4.1-5.3) 11/30/22 15:00 Hgb 14.9 g/dL (11.5-15.3) 11/30/22 15:00 Hct 45.2 % (37.0-47.0) 11/30/22 15:00 MCV 86.3 fl (81-99) 11/30/22 15:00 MCH 28.4 pg (28.0-34.0) 11/30/22 15:00 MCHC 33.0 g/dL (30.0-36.0) 11/30/22 15:00 RDW 11.8 % (12.1-15.1) L 11/30/22 15:00 Plt Count 351 10^3/cmm (130-400) 11/30/22 15:00 MPV 10.4 fL (7.4-10.4) 11/30/22 15:00 Neut % (Auto) 43.8 % 11/30/22 15:00 Lymph % (Auto) 46.4 % 11/30/22 15:00 [place] % (Auto) 8.1 % 11/30/22 15:00 Eos % (Auto) 1.0 % 11/30/22 15:00 Baso % (Auto) 0.5 % 11/30/22 15:00 Neut # (Auto) 2.52 10^3/uL (1.8-7.7) 11/30/22 15:00 Lymph # (Auto) 2.7 10^3/uL (0.8-4.8) 11/30/22 15:00 [place] # (Auto) 0.5 10^3/uL (0.2-0.9) 11/30/22 15:00 Eos # (Auto) 0.1 10^3/uL (0.0-0.8) 11/30/22 15:00 Baso # (Auto) 0.0 10^3/uL (0.0-0.1) 11/30/22 15:00 Nucleated RBC % (auto) 0 % 11/30/22 15:00 Nucleated RBCs # 0.0 /100WBC 11/30/22 15:00 Sodium 141 mmol/L (136-145) 11/30/22 15:40 Potassium 3.5 mmol/L (3.5-5.1) 11/30/22 15:40 Chloride 104 mmol/L (98-107) 11/30/22 15:40 Carbon Dioxide 22 mmol/L (22-29) 11/30/22 15:40 Anion Gap 18.5 (5-19) 11/30/22 15:40 BUN 8 mg/dL (6-20) 11/30/22 15:40 Creatinine 0.6 mg/dL (0.5-0.9) 11/30/22 15:40 GFR Calculation 117.4 mL/min (90-130) 11/30/22 15:40 Glucose 69 mg/dL (65-115) 11/30/22 15:40 Calculated Osmolality 289 mOsm/kg (285-295) 11/30/22 15:40 Calcium 9.2 mg/dL (8.5-10.5) 11/30/22 15:40 Total Bilirubin 0.2 mg/dL (0.15-1.2) 11/30/22 15:40 AST 18 U/L (0-32) 11/30/22 15:40 ALT 16 U/L (0-33) 11/30/22 15:40 Alkaline Phosphatase 52 U/L (35-105) 11/30/22 15:40 Troponin T Baseline 6 ng/L (0-10) 11/30/22 15:40 Total Protein 6.7 g/dL (6.6-8.7) 11/30/22 15:40 Albumin 4.2 g/dL (3.5-5.2) 11/30/22 15:40 Globulin 2.5 g/dL (1.3-4.6) 11/30/22 15:40 Urine Color Straw (Yellow) 11/30/22 16:12 Urine Appearance Clear (CLEAR) 11/30/22 16:12 Urine pH 7 (5-7) 11/30/22 16:12 Ur Specific [place] 1.005 (1.005-1.030) 11/30/22 16:12 Urine Protein Neg (Negative) 11/30/22 16:12 Urine Glucose (UA) Norm (Normal) 11/30/22 16:12 Urine Ketones Negative (Negative) 11/30/22 16:12 Urine Blood Neg (Negative) 11/30/22 16:12 Urine Nitrate Negative (Negative) 11/30/22 16:12 Urine Bilirubin Neg (Negative) 11/30/22 16:12 Urine Urobilinogen Norm mg/dL (Negative) 11/30/22 16:12 Ur Leukocyte Esterase Negative (Negative) 11/30/22 16:12 EKG Data EKG 1: I personally reviewed and interpreted this EKG as follows: EKG interpretation date: 11/30/22 EKG interpretation time: 14:38 Prior EKG tracings: not available for review Interpretation: EKG showed sinus tachycardia with a ventricular rate 111 bpm, AK interval 170, QRS duration 86, QTc of 390, possible left atrial argument, nonspecific ST and T wave abnormalities EKG 2: I personally reviewed and interpreted this EKG as follows: EKG interpretation date: 11/30/22 EKG interpretation time: 17:03 Prior EKG tracings: available for review Interpretation: EKG showed sinus bradycardia with a rate of 56 bpm, AK interval 200, QRS 93, QTc of 420, no ST-T wave changes Discharge Plan Discharge Patient Disposition: Home Clinical Impression: Inappropriate sinus tachycardia, Atypical chest pain Condition: Stable Prescriptions: No Action diltiazem HCl 240 mg capsule,extended release 24hr 240 mg PO DAILY Qty: 90 1RF Rx Instructions: 340B duloxetine 60 mg capsule,delayed release(DR/EC) 60 mg PO DAILY Qty: 90 3RF nebivolol [Bystolic] 5 mg tablet 5 mg PO DAILY Qty: 90 1RF Rx Instructions: 340B spironolacton-hydrochlorothiaz [Aldactazide] 25-25 mg tablet 1 tab PO DAILY Qty: 90 1RF Victoza 3-Irvin 0.6 mg/0.1 mL (18 mg/3 mL) pen injector 1.2 mg SUBCUT DAILY 90 Days Qty: 9 2RF norethindrone ac-eth estradiol [05/23 (21)] 1-20 mg-mcg tablet 1 tab PO DAILY Qty: 63 0RF venlafaxine [Effexor XR] 37.5 mg capsule,extended release 24hr 37.5 mg PO DAILY Qty: 30 1RF clonidine HCl 0.1 mg tablet 0.1 mg PO BID Qty: 60 1RF acetaminophen 500 mg Tablet 500 mg PO Q6H PRN (Reason: Pain) ibuprofen 200 mg Tablet 200 mg PO Q6H PRN (Reason: Pain) Discharge Orders: Discharge ED (Routine); Ordered 11/30/22 Ordered By: Tony Bañuelos Referrals: Jas Morris MD [Primary Care Provider] - 1 week Patient Instructions: Chest Pain (ED) Activity Restrictions/Additional Instructions: Please follow-up with your family practice physician in the next 7 days or sooner as needed. Please return to the ER if your pain or symptoms return or worsen. Coding Level of Care Code ED [employer] Adjuster for Mina Lemon
[2022-11-30 16:22] LABS: Add Urine Microscopic? NO; Charge for UA Resulting for Rev
[2022-11-30 16:29] LABS: Bilirubin Urine Neg (Negative); Blood Urine Neg (Negative); Glucose Urine UA Norm (Normal); Ketones Urine Negative (Negative); Leukocyte Esterase Urine Negative (Negative); Nitrate Urine Negative (Negative); Protein Urine Neg (Negative); Specific Gravity, Urine 1.005 (1.005-1.030); Urine Appearance Clear (CLEAR); Urine Color Straw (Yellow); Urobilinogen Urine Norm (Negative); pH Urine 7 (5-7)
[2022-11-30 16:35] LABS: Alanine Aminotransferase 16 U/L (0-33); Albumin Level 4.2 g/dL (3.5-5.2); Alkaline Phosphatase 52 U/L (35-105); Anion Gap 18.5 (5-19); Aspartate Amino Transferase 18 U/L (0-32); Blood Urea Nitrogen 8 mg/dL (6-20); Calcium 9.2 mg/dL (8.5-10.5); Carbon Dioxide 22 mmol/L (22-29); Chloride 104 mmol/L (98-107); Creatinine Clr Calc Pharmacy 137.0069; Globulin 2.5 g/dL (1.3-4.6); Glomerular Filtration Rate 117.4 mL/min (90-130); Glucose 69 mg/dL (65-115); Osmolality Calculated 289 mOsm/kg (285-295); Potassium 3.5 mmol/L (3.5-5.1); Sodium 141 mmol/L (136-145); Total Bilirubin 0.2 mg/dL (0.15-1.2); Total Protein 6.7 g/dL (6.6-8.7)
--- NOTE | 2022-11-30 16:48 | ECG_ITS ---
[facility] Test Date: 2022-11-30 Pat Name: Monica Romero Department: Room: Gender: Female Design Eng: : 1990 Requested By: Tony Bañuelos Order Number: [id number] Jatinder MD: Rafael Hernandez M.D. Measurements Intervals [place] Rate: 56 P: 60 HI: 200 QRS: 86 QRSD: 93 T: 74 QT: 427 QTc: 415 Interpretive Statements SINUS BRADYCARDIA POSSIBLE RIGHT VENTRICULAR CONDUCTION DELAY [RSR (QR) IN V1/V2] Compared to ECG 11/30/2022 14:38:03 Sinus tachycardia no longer present T-wave abnormality no longer present Electronically Signed On 12-01-2022 8:36:40 CDT by Rafael Hernandez M.D. [id number]
[2022-11-30 16:54] VITALS: PULSE 72; RESP 16; O2SAT 99
[2022-11-30 17:03] LABS: Troponin(5th) Baseline 6 ng/L (0-10)
[2022-11-30 17:38] VITALS: BP 111/82; PULSE 81; RESP 18; O2SAT 97
[2022-11-30 18:36] LABS: Troponin 5 2HR Delta 0 ABS# (0-10)
== END 2022-11-30 17:39 | disposition home or self-care (01) ==
PROVIDERS: Emergency Provider Emergency Medicine; PCP Family Medicine
DX: R00.0 Tachycardia, unspecified (principal); R07.89 Other chest pain; F17.290 Nicotine dependence, other tobacco product, uncomplicated
CPT/HCPCS: 36415; 71045; 80053; 81003; 84484; 85025; 93005; 96374; 99285; J2405; J7030

== ENCOUNTER 2022-12-09 09:23 | Emergency (ER) | payer OTHER, SELFPAY ==
[2022-12-09 09:30] VITALS: BP 133/85; PULSE 68; RESP 16; TEMP 36.5; O2SAT 100; BMI 28.6
[2022-12-09 09:33] VITALS: BP 125/92; PULSE 69; O2SAT 99
--- NOTE | 2022-12-09 09:44 | ECG_ITS ---
[facility] Test Date: 2022-12-09 Pat Name: Monica Romero Department: Room: Gender: Female Formula Technician: : 1990 Requested By: Ana M Galeano Order Number: [id number] Jatinder MD: Rafael Hernandez M.D. Measurements Intervals [place] Rate: 64 P: 48 SC: 174 QRS: 72 QRSD: 96 T: 58 QT: 402 QTc: 415 Interpretive Statements SINUS RHYTHM WITH SINUS ARRHYTHMIA NONSPECIFIC T-WAVE ABNORMALITY Compared to ECG 11/30/2022 17:03:34 T-wave abnormality now present Sinus bradycardia no longer present Electronically Signed On 12-09-2022 17:43:57 CDT by Rafael Hernandez M.D. [id number]
[2022-12-09 09:53] VITALS: BP 105/77; BP 114/78; BP 117/81; PULSE 52; PULSE 55; PULSE 73
--- NOTE | 2022-12-09 09:54 | XR_ITS ---
WS: [id number] XR chest 1V portable [id number] REASON FOR EXAM: syncope FINDINGS: The heart and mediastinum are within normal limits. Calcified granulomatous disease in both hemithoraces. No diffuse or focal pulmonary parenchymal or pleural findings. Mild thoracic scoliosis convex right. IMPRESSION: No acute chest abnormality.
--- NOTE | 2022-12-09 09:56 | W.ED.DIZZY ---
HPI - Dizziness General: Chief Complaint: Dizziness Stated Complaint: heart rate and oxagen Time Seen by Provider: 12/09/22 09:31 Source: patient Mode of arrival: ambulatory Limitations: no limitations History of Present Illness: HPI Narrative: Patient is a nice 32-year-old female with a history of inappropriate tachycardia syndrome here for complaints of what sounds to be a vasovagal episode. Patient states while at work she was trying to use the restroom and straining for a bowel movement when she started to have tunnel vision and became lightheaded. She stated she felt warm and flushed and diaphoretic and felt like she was going to pass out however never did. She states she was not able to defecate thus exited the restroom although shortly later felt like she needed to again so again sat down and tried to defecate and yet again experienced the same symptoms. Patient states she has an appointment with her professor of apologetics in April in [place]. She states she takes diltiazem, Bystolic, and clonidine and she has not had any changes in dosing or missed any doses of these medications. She denies caffeine use. She denies alcohol or drug use. Patient states she never had any chest pain, shortness of breath, or difficulty breathing. Arrival she states she still feels weak. MD elicited complaint: dizziness and near syncope Pertinent past history: other (Inappropriate tachycardia syndrome) Onset (ago): hour(s) Timing: episodic Severity: moderate Context: other (Straining to defecate) History of similar symptoms: No Associated symptoms: Reports no associated symptoms; Denies chest pain, chills, headache(s), malaise, nausea, palpitations, syncope or vomiting Associated neuro symptoms: Reports no associated symptoms; Deny confusion or numbness in extremities Stroke scale total: 0 Review of Systems Const: Denies: fever(s), chills, body aches, fatigue or malaise Eyes: Reports: change in vision (subsided now) and blurry vision (subsided now); Denies: floaters or seeing flashes Card: Reports: lightheadedness and pre-syncope; Denies: chest pain, palpitations, irregular heart rhythm, edema, swelling of feet/ankles, syncope, dyspnea on exertion, orthopnea, leg pain with exertion or acrocyanosis Resp: Denies: dyspnea, productive cough, wheezing, pain on inspiration or hemoptysis GI: Denies: abdominal pain, nausea, vomiting, heartburn or diarrhea : Denies: dysuria Musc: Denies: neck pain, back pain, extremity pain, extremity swelling or joint pain Skin/Breast: Denies: rash Neuro: Reports: dizziness; Denies: headache(s), numbness in extremities, weakness in extremities, sensory changes, lack of coordination, difficulty walking, frequent falls, vertigo, confusion, behavioral changes, Slurred speech present, difficulty communicating thoughts or seizure-like activity PFSH ED PFSH: Medical History Anxiety and depression Symptoms well controlled on medication managed by her primary care provider. Heartburn Diagnosed with esophagitis and gastritis on endoscopy done in February 2017. This was performed by Dr. Pal and she was taking Prilosec at the start of the . Inappropriate sinus tachycardia ---EP dr in [facility]--Dr. Dickinson; EP study done, but no cardiac ablation; ---> Controlled on medication managed by her primary care provider. 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 Pal Recurrent cold sores Right flank pain Sore throat and laryngitis Surgical History H/O laparoscopy (08/03/08) 08/03/2008--> done for chronic pelvic pain by Dr. Singleton. Operative findings showed removal of hemoperitoneum with fulguration of endometriotic lesions in the cul-de-sac biopsy. Fallopian tubes looked normal. Biopsy of the cul-de-sac lesions show abnormal endometrial glands. Endometrial biopsy was performed at the same time which showed mild proliferation. (Records are scanned into the all scripts ) H/O right wrist surgery (~03/2015) Done for ganglion cyst at [facility] in [place] History of bunionectomy of left great toe 2019--had problems with the hardware and had a revision surgery in February 2021. This was done at [facility] History of colonoscopy 2016 History of esophagogastroduodenoscopy (EGD) 2020 Status post laparoscopic cholecystectomy (10/31/20) Laparoscopic procedure performed by Dr. Ballesteros at [facility] Status post tubal ligation 09/15/2019--- laparoscopic bilateral total salpingectomy for sterilization performed by Dr. Paz at [facility]. Pathology showed benign fallopian tubes bilaterally with lumens. Family History Grandfather Heart disease Paternal; at age 36 of [place] Father Hypertension Mother Diabetes Family/Other Diabetes maternal aunt Grandmother Diabetes maternal Denies family history of Cervical cancer Colon cancer Ovarian cancer DVT (deep venous thrombosis) Hyperlipidemia Breast cancer Pulmonary embolism Lung disease Uterine cancer Thyroid condition Stroke Social History Smoking and tobacco status: current every day smoker e-cigarettes E-Cigarette Details: vaporizer device E-cig/vape details: previous 9PY (quit 2020) Alcohol intake: former Substance/Drug Use: never Lives independently: Yes Marital status: Number of children: 3 Current occupational status: employed Current occupation: [employer] Current gender identity: Female Special preston needs: No Agree to transfusion: Yes Physical Exam Const: COMMON NORMALS: no acute distress, average body habitus, patient oriented x3, no limitations, healthy appearing, alert and well nourished ORIENTATION/CONSCIOUSNESS: Yes awake, Yes oriented to person, Yes oriented to place and Yes oriented to time HENMT: COMMON NORMALS: normocephalic and atraumatic HEAD & SCALP: normal to inspection, normocephalic and atraumatic Eye: COMMON NORMALS: Equal, round and reactive pupils present and EOMs intact bilaterally GENERAL EYE: appearance normal, both eyes and all related structures and normal light reflex PUPIL: Yes Equal, round and reactive pupils present DIRECT OPHTHALMOSCOPY: Yes normal light reflex Neck/C-Spine: COMMON NORMALS: full ROM, no lymphadenopathy, supple, no meningeal signs and no JVD Chest: COMMONS NORMALS: normal inspection of the chest and normal palpation of entire chest wall Resp: COMMON NORMALS: normal respiratory effort and clear to auscultation bilaterally AUSCULTATION: clear to auscultation bilaterally Cardio: COMMON NORMALS: no JVD, regular rate and regular rhythm RATE: regular rate RHYTHM: regular rhythm GI: COMMON NORMALS: Normal to inspection, nondistended, normoactive bowel sounds present, Soft to palpation, non-tender, No hepatosplenomegaly present and no masses PALPATION: Yes Soft to palpation and Yes No hepatosplenomegaly present : COMMON NORMALS: Yes no CVA tenderness BLADDER/KIDNEY EXAM: Yes no CVA tenderness Back/Pelvis: COMMON NORMALS: no CVA tenderness and thoracic and lumbar spine normal to inspection Extremity: COMMON NORMALS: normal to inspection, capillary refill normal, no joint enlargement, no clubbing, cyanosis or edema, no calf tenderness and no pedal edema GENERAL: Yes normal exam except as noted Neuro: ALISHA COMA SCALE: document GCS findings [place] coma scale eye opening: Spontaneous [place] coma scale verbal response: Orientated [place] coma scale motor response: Obey commands Alisha coma scale total score: 15 COMMON NORMALS: patient oriented x3, moves all extremities, no focal motor deficits and no sensory deficits noted SENSORIUM/ORIENTATION: Yes alert, Yes oriented to person, Yes oriented to place and Yes oriented to time MENINGEAL SIGNS: Yes no meningeal signs Skin: COMMON NORMALS: no rashes or lesions noted GENERAL SKIN EXAM: no rashes or lesions noted Course Vital Signs: Vital signs: Vital Signs Temperature 97.7 F 12/09/22 09:30 Pulse Rate 67 12/09/22 11:00 Respiratory Rate 16 12/09/22 09:30 Blood Pressure 115/78 12/09/22 11:00 Pulse Oximetry 99 12/09/22 11:00 Oxygen Delivery Me thod Room Air 12/09/22 11:00 MDM - Dizziness Medical Decision Making Patient is a 32-year-old female here for complaints of presyncope while seated on the toilet attempting defecation earlier today. Patient's vital signs are stable upon her arrival. She did have some periods of mild bradycardia in the high 50s. Blood work overall is unremarkable. She is mildly hypokalemic at 3.2. She was given oral supplementation for this. EKG showing sinus rhythm with a rate of 64. Most likely symptoms are related to a situational vasovagal syncope. We did discuss keeping a log of her heart rate. She is on 5 mg of Bystolic daily. If she continues to run tachycardic and accompanied by lightheadedness/dizziness and I would recommend decreasing this or at least cutting it in half to 2.5 mg. We will have case management work on getting her a sooner appointment with her professor of apologetics. She can follow-up with Dr. Morris in the meantime. Return to ED precautions given. Lab Data 12/09/22 10:11 12/09/22 10:11 Laboratory Results WBC 7.9 10^3/uL (4.0-10.0) 12/09/22 10:11 RBC 5.37 10^6/uL (4.1-5.3) H 12/09/22 10:11 Hgb 15.7 g/dL (11.5-15.3) H 12/09/22 10:11 Hct 45.8 % (37.0-47.0) 12/09/22 10:11 MCV 85.3 fl (81-99) 12/09/22 10:11 MCH 29.2 pg (28.0-34.0) 12/09/22 10:11 MCHC 34.3 g/dL (30.0-36.0) 12/09/22 10:11 RDW 11.7 % (12.1-15.1) L 12/09/22 10:11 Plt Count 278 10^3/cmm (130-400) 12/09/22 10:11 MPV 11.1 fL (7.4-10.4) H 12/09/22 10:11 Neut % (Auto) 79.5 % 12/09/22 10:11 Lymph % (Auto) 13.7 % 12/09/22 10:11 Dade % (Auto) 5.7 % 12/09/22 10:11 Eos % (Auto) 0.4 % 12/09/22 10:11 Baso % (Auto) 0.3 % 12/09/22 10:11 Neut # (Auto) 6.32 10^3/uL (1.8-7.7) 12/09/22 10:11 Lymph # (Auto) 1.1 10^3/uL (0.8-4.8) 12/09/22 10:11 Dade # (Auto) 0.5 10^3/uL (0.2-0.9) 12/09/22 10:11 Eos # (Auto) 0.0 10^3/uL (0.0-0.8) 12/09/22 10:11 Baso # (Auto) 0.0 10^3/uL (0.0-0.1) 12/09/22 10:11 Nucleated RBC % (auto) 0 % 12/09/22 10:11 Nucleated RBCs # 0.0 /100WBC 12/09/22 10:11 Sodium 138 mmol/L (136-145) 12/09/22 10:11 Potassium 3.2 mmol/L (3.5-5.1) L 12/09/22 10:11 Chloride 99 mmol/L (98-107) 12/09/22 10:11 Carbon Dioxide 24 mmol/L (22-29) 12/09/22 10:11 Anion Gap 18.2 (5-19) 12/09/22 10:11 BUN 10 mg/dL (6-20) 12/09/22 10:11 Creatinine 0.6 mg/dL (0.5-0.9) 12/09/22 10:11 GFR Calculation 117.4 mL/min (90-130) 12/09/22 10:11 Glucose 128 mg/dL (65-115) H 12/09/22 10:11 Calculated Osmolality 287 mOsm/kg (285-295) 12/09/22 10:11 Calcium 9.5 mg/dL (8.5-10.5) 12/09/22 10:11 Total Bilirubin 0.3 mg/dL (0.15-1.2) 12/09/22 10:11 AST 18 U/L (0-32) 12/09/22 10:11 ALT 22 U/L (0-33) 12/09/22 10:11 Alkaline Phosphatase 69 U/L (35-105) 12/09/22 10:11 Troponin T Baseline 8 ng/L (0-10) 12/09/22 10:11 Total Protein 7.8 g/dL (6.6-8.7) 12/09/22 10:11 Albumin 4.8 g/dL (3.5-5.2) 12/09/22 10:11 Globulin 3.0 g/dL (1.3-4.6) 12/09/22 10:11 HCG, Qual Negative (Negative) 12/09/22 10:11 Discharge Plan Discharge Patient Disposition: Home Clinical Impression: Situational syncope, Vasovagal syncope Condition: Stable Prescriptions: No Action diltiazem HCl 240 mg capsule,extended release 24hr 240 mg PO DAILY Qty: 90 1RF Rx Instructions: 340B duloxetine 60 mg capsule,delayed release(DR/EC) 60 mg PO DAILY Qty: 90 3RF nebivolol [Bystolic] 5 mg tablet 5 mg PO DAILY Qty: 90 1RF Rx Instructions: 340B spironolacton-hydrochlorothiaz [Aldactazide] 25-25 mg tablet 1 tab PO DAILY Qty: 90 1RF Victoza 3-Irvin 0.6 mg/0.1 mL (18 mg/3 mL) pen injector 1.2 mg SUBCUT DAILY 90 Days Qty: 9 2RF norethindrone ac-eth estradiol [05/23 (21)] 1-20 mg-mcg tablet 1 tab PO DAILY Qty: 63 0RF venlafaxine [Effexor XR] 37.5 mg capsule,extended release 24hr 37.5 mg PO DAILY Qty: 30 1RF clonidine HCl 0.1 mg tablet 0.1 mg PO BID Qty: 60 1RF acetaminophen 500 mg Tablet 500 mg PO Q6H PRN (Reason: Pain) ibuprofen 200 mg Tablet 200 mg PO Q6H PRN (Reason: Pain) Discharge Orders: Discharge ED (Routine); Ordered 12/09/22 Ordered By: Ana M Galeano Referrals: Jas Morris MD [Primary Care Provider] - Patient Instructions: Syncope (DC) Coding Level of Care Code ED Tax Advisor for Mina Lemon
[2022-12-09 10:18] LABS: Basophils % 0.3 %; Eosinophils % 0.4 %; Hematocrit 45.8 % (37.0-47.0); Hemoglobin 15.7 g/dL (11.5-15.3); Lymphocytes # 1.1 10^3/uL (0.8-4.8); Lymphocytes % 13.7 %; Mean Corpuscular HGB Conc 34.3 g/dL (30.0-36.0); Mean Corpuscular Hemoglobin 29.2 pg (28.0-34.0); Mean Corpuscular Volume 85.3 fl (81-99); Mean Platelet Volume 11.1 fL (7.4-10.4); Monocytes # 0.5 10^3/uL (0.2-0.9); Monocytes % 5.7 %; Neutrophils # 6.32 10^3/uL (1.8-7.7); Neutrophils % 79.5 %; Nucleated Red Blood Cells % 0 %; Platelet Count 278 10^3/cmm (130-400); Red Blood Count 5.37 10^6/uL (4.1-5.3); Red Cell Distribution Width 11.7 % (12.1-15.1); White Blood Count 7.9 10^3/uL (4.0-10.0)
[2022-12-09] MEDS: sodium chloride 0.9% 1,000 ML 999 ML IV (10:20)
[2022-12-09 10:33] VITALS: BP 122/83; PULSE 60; O2SAT 100
[2022-12-09 10:41] LABS: HCG, Serum Qual Negative (Negative)
[2022-12-09 10:45] LABS: Alanine Aminotransferase 22 U/L (0-33); Albumin Level 4.8 g/dL (3.5-5.2); Alkaline Phosphatase 69 U/L (35-105); Blood Urea Nitrogen 10 mg/dL (6-20); Calcium 9.5 mg/dL (8.5-10.5); Carbon Dioxide 24 mmol/L (22-29); Chloride 99 mmol/L (98-107); Creatinine Clr Calc Pharmacy 136.6139; Glomerular Filtration Rate 117.4 mL/min (90-130); Glucose 128 mg/dL (65-115); Osmolality Calculated 287 mOsm/kg (285-295); Sodium 138 mmol/L (136-145); Total Bilirubin 0.3 mg/dL (0.15-1.2); Total Protein 7.8 g/dL (6.6-8.7)
[2022-12-09 10:46] LABS: Anion Gap 18.2 (5-19); Aspartate Amino Transferase 18 U/L (0-32); Potassium 3.2 mmol/L (3.5-5.1)
[2022-12-09 10:47] LABS: Troponin(5th) Baseline 8 ng/L (0-10)
[2022-12-09 11:00] VITALS: BP 115/78; PULSE 67; O2SAT 99
[2022-12-09] MEDS: potassium chloride ER 20 mEq Tablet 40 MEQ PO (11:05)
[2022-12-09 11:41] VITALS: PULSE 66; O2SAT 100
--- NOTE | 2022-12-09 11:54 | DCPLANNER ---
manager audio had message to see if patients appointment scheduled with Dr. Hemphill, electrophysiology, in [place] could be rescheduled sooner. manager audio called [facility], was told that appointment could be moved sooner but not with Dr. Hemphill, patient could see another provider. manager audio called patient and informed patient that if she wished to see a different provider that patient could call the clinic and reschedule her appointment.
== END 2022-12-09 11:43 | disposition home or self-care (01) ==
PROVIDERS: Emergency Provider Physician Assistant; PCP Family Medicine
DX: R55 Syncope and collapse (principal); F17.290 Nicotine dependence, other tobacco product, uncomplicated
CPT/HCPCS: 71045; 80053; 84484; 84703; 85025; 93005; 99285; J7030

== ENCOUNTER 2023-01-16 15:47 | Outpatient (CLI) | payer OTHER, SELFPAY ==
--- NOTE | 2023-01-16 15:51 | XRR_ITS ---
PROCEDURE INFORMATION: Exam: XR Left Foot Exam date and time: 01/16/2023 4:03 PM Age: 32 years old Clinical indication: Pain; Prior surgery; Surgery date: 6+ months; Surgery type: Left foot; Additional info: M79.672 - pain in left foot TECHNIQUE: Imaging protocol: Radiologic exam of the left foot. Views: 3 or more views. COMPARISON: CR XR foot LT min 3V* [id number] 04/29/2021 12:05 PM FINDINGS: Bones/joints: Metallic pin seen in the proximal phalange of the great toe and in the distal aspect of the 5th metatarsal. These findings were present on prior examination and appears similar. No acute bony abnormalities seen. Comparison to prior examination similar findings seen Soft tissues: Normal. XR/XR foot LT min 3V* [id number] IMPRESSION: Stable metallic pin proximal phalange great toe. Stable metallic ino involving the distal aspect of the 5th metatarsal
== END 2023-01-16 15:48 | disposition home or self-care (01) ==
PROVIDERS: PCP Family Medicine; Visit Provider Podiatrist Foot & Ankle Surgery
DX: M79.672 Pain in left foot (principal); Z98.890 Other specified postprocedural states
CPT/HCPCS: 73630

== ENCOUNTER 2023-04-19 16:38 | Emergency (ER) | payer OTHER, SELFPAY ==
[2023-04-19 16:50] VITALS: BP 137/81; PULSE 113; RESP 17; TEMP 36.7; O2SAT 98
[2023-04-19 17:14] LABS: Basophils % 0.2 %; Eosinophils # 0.1 10^3/uL (0.0-0.8); Eosinophils % 0.7 %; Hematocrit 43.7 % (36-47); Lymphocytes # 2.9 10^3/uL (0.8-4.8); Lymphocytes % 33.6 %; Mean Corpuscular HGB Conc 33.2 g/dL (30-55); Mean Corpuscular Hemoglobin 29.2 pg (27-33); Mean Corpuscular Volume 87.9 fl (85-98); Mean Platelet Volume 9.6 fL (7.4-10.4); Monocytes # 0.6 10^3/uL (0.2-0.9); Monocytes % 6.9 %; Neutrophils # 5.05 10^3/uL (1.8-7.7); Neutrophils % 58.5 %; Nucleated Red Blood Cells % 0 %; Platelet Count 311 10^3/cmm (157-399); Red Blood Count 4.97 10^6/uL (3.85-5.65); Red Cell Distribution Width 12.2 % (12.1-15.1); White Blood Count 8.64 10^3/uL (3.29-11.43)
[2023-04-19 17:35] LABS: Alanine Aminotransferase 12 U/L (0-33); Albumin Level 4.6 g/dL (3.5-5.2); Alkaline Phosphatase 74 U/L (35-105); Anion Gap 16.4 (5-19); Aspartate Amino Transferase 13 U/L (0-32); Blood Urea Nitrogen 6 mg/dL (6-20); Calcium 9.7 mg/dL (8.5-10.5); Carbon Dioxide 23 mmol/L (22-29); Chloride 99 mmol/L (98-107); Globulin 3.1 g/dL (1.3-4.6); Glomerular Filtration Rate 144.9 mL/min (90-130); Glucose 93 mg/dL (65-115); Lipase 15 U/L (13-60); Osmolality Calculated 277 mOsm/kg (285-295); Potassium 3.4 mmol/L (3.5-5.1); Sodium 135 mmol/L (136-145); Total Bilirubin 0.3 mg/dL (0.15-1.2); Total Protein 7.7 g/dL (6.6-8.7)
[2023-04-19 17:36] LABS: Erythrocyte Sedimentation Rate 21 mm/hr (0-15)
[2023-04-19] MEDS: metoclopramide 5 mg/mL SDV 2 mL 10 MG IVP (18:07)
[2023-04-19] MEDS: sodium chloride 0.9% 1,000 ML 999 ML IV (18:07)
[2023-04-19] MEDS: ketorolac 30 mg/mL INJ IVP (18:09)
[2023-04-19 18:15] LABS: Add Urine Microscopic? NO; Charge for UA Resulting for Rev
[2023-04-19 18:20] LABS: Bilirubin Urine Neg (Negative); Blood Urine Neg (Negative); Glucose Urine UA Norm (Normal); Ketones Urine Negative (Negative); Nitrate Urine Negative (Negative); Protein Urine Neg (Negative); Specific Gravity, Urine 1.005 (1.005-1.030); Urine Appearance Clear (CLEAR); Urine Color Yellow (Yellow); pH Urine 5 (5-7)
[2023-04-19 18:21] LABS: HCG Qualitative Urine. Negative (Negative); Leukocyte Esterase Urine Negative (Negative); Urobilinogen Urine Norm (Negative)
--- NOTE | 2023-04-19 18:27 | CTR_ITS ---
PROCEDURE INFORMATION: Exam: CT Abdomen And Pelvis With Contrast Exam date and time: 04/19/2023 6:37 PM Age: 32 years old Clinical indication: Abdominal pain; Localized; Right; Prior surgery; Surgery date: 6+ months; Surgery type: Choley, iud; Additional info: Right mid abd pain, right sided w/ n/v x5 days. HX choly, cysts TECHNIQUE: Imaging protocol: Computed tomography of the abdomen and pelvis with contrast. Radiation optimization: All CT scans at this facility use at least one of these dose optimization techniques: automated exposure control; mA and/or kV adjustment per patient size (includes targeted exams where dose is matched to clinical indication); or iterative reconstruction. Contrast material: OMNI 350; Contrast volume: 100 ml; Contrast route: INTRAVENOUS (IV); REPORTING DATA: Count of CT and Cardiac NM exams in prior 12 months: This patient has received 0 known CTs and 0 known cardiac nuclear medicine studies in the 12 months prior to the current study. COMPARISON: CT kidney stone [id number] 08/15/2021 12:59 PM RADIATION DOSE METRICS: Total DLP (mGy-cm): 529.5 FINDINGS: Lungs: Bilateral lower lung bases are normal. Liver: Liver is normal in size and contour. No suspicious liver mass. Hepatic veins and portal veins are patent. No intrahepatic biliary dilatation. Gallbladder and bile ducts: There has been a cholecystectomy. Pancreas: No pancreatic mass or pancreatitis. Pancreatic duct normal in caliber. Spleen: Normal spleen. Adrenal glands: No adrenal nodule. Kidneys and ureters: No suspicious renal mass. No hydronephrosis or nephrolithiasis. Ureters are normal. Stomach and bowel: No bowel obstruction. Stomach is normal in appearance. No mucosal thickening. No evidence of acute diverticulitis. Appendix: No evidence of acute appendicitis. Intraperitoneal space: No free fluid. No ascites or free air. Vasculature: Abdominal aorta is normal size and shape. Lymph nodes: Unremarkable. Prominent right lower quadrant lymph nodes. Urinary bladder: No bladder abnormality allowing for degree of filling. Reproductive: Uterus is heterogeneous, with thin IUD in place. Small right adnexal cyst. Bones/joints: No acute fracture. No aggressive lytic or blastic lesions. Soft tissues: Unremarkable. CT/CT abdomen pelvis w con* [id number] IMPRESSION: 1. No evidence of acute appendicitis. 2. Prominent right lower quadrant lymph nodes which can be seen with mesenteric adenitis. 3. Right adnexal small cyst, no free intra-abdominal fluid.
[2023-04-19] MEDS: iohexol 350 mg/mL 500 mL Btl (per mL) IV (18:43)
[2023-04-19] MEDS: HYDROcodone-acetaminophen 5-325 mg Tablet 1 TAB PO (20:03)
--- NOTE | 2023-04-20 02:10 | ED_ITS ---
HPI - Abdominal Pain 2 General: Chief Complaint: Abdominal Pain Stated Complaint: right side abd pain Time Seen by Provider: 04/19/23 16:40 Source: patient Mode of arrival: ambulatory Limitations: no limitations History of Present Illness: Patient presents emergency department today for evaluation treatment of complaints of right-sided abdominal pain. Patient noted onset about 4 days ago and states at first it was more off-and-on. She states is now become consistent and she has started to have nausea and vomiting. Patient does not have her gallbladder. She has a history of ovarian cysts but states she had a tubal and currently has a Mirena to help regulate her cycles. Patient had previously been eating and drinking without difficulty. She denies any change in bowel habits or any new onset diarrhea. She has not had any recorded fevers. No other similarly ill at home at this time. She denies nasal congestion, cough, sore throat, or headache. No urinary symptoms. Review of Systems 2 General: Reports: 10 or more systems reviewed and unremarkable except in HPI and below PFSH ED 2 PFSH: Medical History Recurrent cold sores Sore throat and laryngitis Right flank pain No pertinent past medical history Denies diabetes, asthma, seizures, DVT/PE, hypertension PMD: Dr. Pal Anxiety and depression Symptoms well controlled on medication managed by her primary care provider. Inappropriate sinus tachycardia ---EP dr in [facility]--Dr. Dickinson; EP study done, but no cardiac ablation; ---> Controlled on medication managed by her primary care provider. Does not have a resort manager- Heartburn Diagnosed with esophagitis and gastritis on endoscopy done in February 2017. This was performed by Dr. Pal and she was taking Prilosec at the start of the . Surgical History Status post laparoscopic cholecystectomy (10/31/20) [place] [facility] [place] of esophagogastroduodenoscopy (EGD) 2020 History of colonoscopy 2016 History of bunionectomy of left great toe 2019--had problems with the hardware and had a revision surgery in February 2021. This was [place] [facility] [place] Status post tubal ligation 09/15/2019--- laparoscopic bilateral total salpingectomy for sterilization [place] Dr. Paz [place] [facility] [place] Pathology showed benign fallopian tubes bilaterally with lumens. H/O right wrist surgery (~03/2015) Done for ganglion cyst at [facility] in [place] H/O laparoscopy (08/03/08) 08/03/2008--> done for chronic pelvic pain by Dr. Singleton. Operative findings showed removal of hemoperitoneum with fulguration of endometriotic lesions in the cul-de-sac biopsy. Fallopian tubes looked normal. Biopsy of the cul-de-sac lesions show abnormal endometrial glands. Endometrial biopsy was performed at the same time which showed mild proliferation. (Records are scanned into the all scripts ) Family History Grandfather Heart disease Paternal; at age 36 of [place] Father Hypertension Mother Diabetes Family/Other Diabetes maternal aunt Grandmother Diabetes maternal Denies family history of Cervical cancer Colon cancer Ovarian cancer DVT (deep venous thrombosis) Hyperlipidemia Breast cancer Pulmonary embolism Lung disease Uterine cancer Thyroid disease Stroke Social History Smoking and tobacco/nicotine status: current every day tobacco/nicotine user e- cigarettes E-Cigarette Details: vaporizer device E-cig/vape details: previous 9PY (quit 2020) Alcohol intake: former Substance/Drug Use: never Lives independently: Yes Marital status: Number of children: 3 Current occupational status: employed 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 Current gender identity: Female Special preston needs: No Agree to transfusion: Yes Physical Exam 2 Const: COMMON NORMALS: patient oriented x3 and alert OTHER: Patient appears nontoxic but obviously uncomfortable HENMT: COMMON NORMALS: normocephalic, atraumatic, hearing grossly normal bilaterally and moist oral mucous membranes HEAD & SCALP: normocephalic and atraumatic Eye: COMMON NORMALS: Equal, round and reactive pupils present, EOMs intact bilaterally and conjunctivae normal CONJUNCTIVA: Yes conjunctivae normal P UPIL: Yes Equal, round and reactive pupils present Neck/C-Spine: COMMON NORMALS: full ROM and no JVD Lymph: LYMPHATIC: no lymphadenopathy noted Resp: COMMON NORMALS: normal respiratory effort, No retractions, No use of accessory muscles and clear to auscultation bilaterally AUSCULTATION: clear to auscultation bilaterally Cardio: COMMON NORMALS: no JVD, regular rate and regular rhythm RATE: r egular rate RHYTHM: regular rhythm GI: OTHER: Diminished bowel sounds throughout. Patient noticeably tender to right mid and right lower quadrant palpation. No specific rebound tenderness. : COMMON NORMALS: Yes no CVA tenderness BLADDER/KIDNEY EXAM: Yes no CVA tenderness Back/Pelvis: COMMON NORMALS: no CVA tenderness, no thoracic nor lumbar tenderness and thoraco-lumbar ROM normal Extremity: COMMON NORMALS: normal to inspection, full ROM and capillary refill normal Neuro: COMMON NORMALS: patient oriented x3 SENSORIUM/ORIENTATION: Yes alert Psych: COMMON NORMALS: mental status grossly normal, Normal thought process present, cooperative, normal affect and activity/motor behavior normal T HOUGHT PROCESS: Normal thought process present Skin: COMMON NORMALS: no rashes or lesions noted and no wounds GENERAL SKIN EXAM: no rashes or lesions noted Course 2 Vital Signs: Vital signs: Vital Signs Temperature 98.1 F 04/19/23 16:50 Pulse Rate 113 H 04/19/23 16:50 Respiratory Rate 17 04/19/23 16:50 Blood Pressure 137/81 04/19/23 16:50 Pulse Oximetry 98 04/19/23 16:50 Oxygen Delivery Me thod Room Air 04/19/23 16:50 MDM - Abdominal Pain Medical Decision Making Patient's lab work today did not show any acute or obvious reasons for the patient's abdominal discomfort. Given that it is been several days and is worsening in nature and primarily his settled on the right lower quadrant we did discuss proceeding on with imaging. Patient agreed and, CT results indicated findings of enhanced lymph nodes of the mesentery consistent with mesenteric adenitis. Discussed this finding with the patient and explained how it often mimics appendicitis. We discussed symptomatic treatments. She also has a large amount of retained stool throughout the colon-especially in the ascending and transverse colon. Patient was provided GoLytely prescription to help with a bowel cleanout regimen tomorrow to see if that also helps decrease her discomfort in that area. Informational handout about mesenteric adenitis provided for her reference at home. Note for employer provided for her tomorrow to adhere to her bowel cleanout regimen. She was given strict return precautions for change or worsening in condition. Patient verbalizes understanding and agreement to treatment plan. Differential Diagnosis Likely abdominal pain and constipation; Unlikely acute appendicitis, calculus of kidney, diverticulitis, gastroenteritis, pancreatitis or small bowel obstruction Lab Data 04/19/23 17:01 04/19/23 17:01 Labs/Radiology: Radiology Impressions Abdomen/Pelvis CT 04/19/23 18:27 IMPRESSION: 1. No evidence of acute appendicitis. 2. Prominent right lower quadrant lymph nodes which can be seen with mesenteric adenitis. 3. Right adnexal small cyst, no free intra-abdominal fluid. Laboratory Results WBC 8.64 10^3/uL (3.29-11.43) 04/19/23 17: RBC 4.97 10^6/uL (3.85-5.65) 04/19/23 17: Hgb 14.50 g/dL (11.27-16.99) 04/19/23 17: Hct 43.7 % (36-47) 04/19/23 17: MCV 87.9 fl (85-98) 04/19/23 17: MCH 29.2 pg (27-33) 04/19/23 17: MCHC 33.2 g/dL (30-55) 04/19/23 17: RDW 12.2 % (12.1-15.1) 04/19/23 17: Plt Count 311 10^3/cmm (157-399) 04/19/23 17: MPV 9.6 fL (7.4-10.4) 04/19/23 17: Neut % (Auto) 58.5 % 04/19/23 17: Lymph % (Auto) 33.6 % 04/19/23 17: [place] % (Auto) 6.9 % 04/19/23 17: Eos % (Auto) 0.7 % 04/19/23 17: Baso % (Auto) 0.2 % 04/19/23 17: Neut # (Auto) 5.05 10^3/uL (1.8-7.7) 04/19/23 17: Lymph # (Auto) 2.9 10^3/uL (0.8-4.8) 04/19/23 17: [place] # (Auto) 0.6 10^3/uL (0.2-0.9) 04/19/23 17: Eos # (Auto) 0.1 10^3/uL (0.0-0.8) 04/19/23 17:01 Baso # (Auto) 0.0 10^3/uL (0.0-0.1) 04/19/23 17: Nucleated RBC % (auto) 0 % 04/19/23 17: Nucleated RBCs # 0.0 /100WBC 04/19/23 17: ESR 21 mm/hr (0-15) H 04/19/23 17: Sodium 135 mmol/L (136-145) L 04/19/23 17: Potassium 3.4 mmol/L (3.5-5.1) L 04/19/23 17: Chloride 99 mmol/L (98-107) 04/19/23: Carbon Dioxide 23 mmol/L (22-29) 04/19/23 17: Anion Gap 16.4 (5-19) 04/19/23 17: BUN 6 mg/dL (6-20) 04/19/23 17: Creatinine 0.5 mg/dL (0.5-0.9) 04/19/23 17: GFR Calculation 144.9 mL/min (90-130) H 04/19/23 17: Glucose 93 mg/dL (65-115) 04/19/23 17: Calculated Osmolality 277 mOsm/kg (285-295) L 04/19/23 17: Calcium 9.7 mg/dL (8.5-10.5) 04/19/23 17: Total Bilirubin 0.3 mg/dL (0.15-1.2) 04/19/23 17: AST 13 U/L (0-32) 04/19/23 17: ALT 12 U/L (0-33) 04/19/23 17: Alkaline Phosphatase 74 U/L (35-105) 04/19/23 17: C-Reactive Protein 3.0 mg/L (0.0-4.9) 04/19/23 17: Total Protein 7.7 g/dL (6.6-8.7) 04/19/23 17: Albumin 4.6 g/dL (3.5-5.2) 04/19/23 17: Globulin 3.1 g/dL (1.3-4.6) 04/19/23 17:01 Lipase 15 U/L (13-60) 04/19/23 17:01 HCG, Qual Negative (Negative) 04/19/23 18:11 Urine Color Yellow (Yellow) 04/19/23 18:11 Urine Appearance Clear (CLEAR) 04/19/23 18:11 Urine pH 5 (5-7) 04/19/23 18:11 Ur Specific [place] 1.005 (1.005-1.030) 04/19/23 18:11 Urine Protein Neg (Negative) 04/19/23 18:11 Urine Glucose (UA) Norm (Normal) 04/19/23 18:11 Urine Ketones Negative (Negative) 04/19/23 18:11 Urine Blood Neg (Negative) 04/19/23 18:11 Urine Nitrate Negative (Negative) 04/19/23 18:11 Urine Bilirubin Neg (Negative) 04/19/23 18:11 Urine Urobilinogen Norm mg/dL (Negative) 04/19/23 18:11 Ur Leukocyte Esterase Negative (Negative) 04/19/23 18:11 All radiology interpretation(s) finalized by discharge Discharge Plan Discharge Patient Disposition: Home Clinical Impression: Mesenteric adenitis Condition: Stable Prescriptions: New GaviLyte-G 236-22.74-6.74 -5.86 gram recon soln 20 ml PO Q1M Qty: 4000 0RF Rx Instructions: until fecal effluent is clear No Action duloxetine 60 mg capsule,delayed release(DR/EC) 60 mg PO DAILY Qty: 90 3RF Victoza 3-Irvin 0.6 mg/0.1 mL (18 mg/3 mL) pen injector 1.2 mg SUBCUT DAILY 90 Days Qty: 9 2RF cyclobenzaprine 5 mg tablet 5 mg PO BID PRN (Reason: Jaw boyd) Qty: 20 0RF naproxen 250 mg tablet 250 mg PO BID 14 Days Qty: 28 0RF norethindrone ac-eth estradiol [05/23 (21)] 1-20 mg-mcg tablet 1 tab PO DAILY Qty: 63 0RF diltiazem HCl 240 mg capsule,extended release 24hr 240 mg PO DAILY Qty: 30 0RF Rx Instructions: 340B spironolacton-hydrochlorothiaz 25-25 mg tablet See Rx Instructions .ROUTE .COMPLEX Qty: 30 0RF Dose Instruction: TAKE 1 TABLET BY MOUTH EVERY DAY Rx Instructions: TAKE 1 TABLET BY MOUTH EVERY DAY venlafaxine [Effexor XR] 37.5 mg capsule,extended release 24hr 37.5 mg PO DAILY Qty: 30 3RF acetaminophen 500 mg Tablet 500 mg PO Q6H PRN (Reason: Pain) Discharge Orders: Discharge ED (Routine); Ordered 04/19/23 Ordered By: Julita Lubin Referrals: Jas Morris MD [Primary Care Provider] - Discharge Diet: Advance as tolerated Discharge Activity: Increase activity as tolerated Patient Instructions: Mesenteric Adenitis (ED) Activity Restrictions/Additional Instructions: Evaluation today shows 2 findings. You have a significant amount of stool accumulated in your right abdominal region which is most likely secondary to mesenteric adenitis or inflammation of the lymph nodes of the mesentery in the abdomen in the right side of your abdomen. With this inflammation and can often cause the colon and GI organs to slow down thus resulting in stool accumulation. We are providing you medication to help with stooling and to force the colon to wake back up . Mesenteric adenitis mimics appendicitis type pain and we encourage you to stay hydrated, rest, use Tylenol and ibuprofen as this is a self-limited condition and should resolve over the next couple of days. Stand Alone Forms: Work/School Release Coding Level of Care Code ED Ultrasonic Hand Solderer for Mina Lemon
== END 2023-04-19 20:07 | disposition home or self-care (01) ==
PROVIDERS: Emergency Provider Physician Assistant; PCP Family Medicine
DX: I88.0 Nonspecific mesenteric lymphadenitis (principal); F17.290 Nicotine dependence, other tobacco product, uncomplicated
CPT/HCPCS: 36415; 74177; 80053; 81003; 81025; 83690; 85025; 85651; 86140; 96374; 96375; 99285; J1885; J2765; J7030; Q9967

== ENCOUNTER → 2023-08-24 10:39 | Outpatient (BNVA) | payer OTHER, SELFPAY | PROVIDERS: PCP Family Medicine; Visit Provider Podiatrist Foot & Ankle Surgery | DX: M25.872 Other specified joint disorders, left ankle and foot | CPT/HCPCS: 73630 ==

== ENCOUNTER → 2023-09-07 12:11 | Outpatient (BNVA) | payer OTHER, SELFPAY | PROVIDERS: PCP Family Medicine; Visit Provider Nurse Practitioner | DX: S99.911A Unspecified injury of right ankle, initial encounter (principal); W19.XXXA Unspecified fall, initial encounter | CPT/HCPCS: 73610 ==

== ENCOUNTER → 2023-12-17 13:00 | Outpatient (BNVA) | payer OTHER, SELFPAY | PROVIDERS: PCP Family Medicine | DX: R51.9 Headache, unspecified (principal); J06.9 Acute upper respiratory infection, unspecified | CPT/HCPCS: 87426 ==

== ENCOUNTER → 2023-12-31 08:37 | Outpatient (BNVA) | payer OTHER, SELFPAY | PROVIDERS: PCP Family Medicine; Visit Provider Nurse Practitioner Family | DX: S92.515A Nondisplaced fracture of proximal phalanx of left lesser toe(s), initial encounter for closed fracture (principal); W19.XXXA Unspecified fall, initial encounter | CPT/HCPCS: 73630 ==

== ENCOUNTER → 2024-10-12 12:11 | Outpatient (BNVA) | payer OTHER, SELFPAY | PROVIDERS: PCP Family Medicine; Visit Provider Nurse Practitioner | DX: R06.02 Shortness of breath (principal); J02.9 Acute pharyngitis, unspecified | CPT/HCPCS: 87400; 87426 ==

== ENCOUNTER 2025-05-01 16:36 | Emergency (ER) | payer MEDICAID, SELFPAY ==
[2025-05-01 16:39] VITALS: BP 149/96; PULSE 89; TEMP 36.6; O2SAT 98
--- NOTE | 2025-05-01 16:43 | ECG_ITS ---
[facility] Test Date: 2025-05-01 Pat Name: Monica Romero Department: Room: Gender: Female Operating Room Aide: : 1990 Requested By: Ana M Galeano Order Number: [id number] Jatinder MD: Woody Madrigal M.D. Measurements Intervals [place] Rate: 90 P: 75 WY: 160 QRS: 86 QRSD: 86 T: 27 QT: 346 QTc: 425 Interpretive Statements SINUS RHYTHM POSSIBLE LEFT ATRIAL ENLARGEMENT [-0.1mV P-WAVE IN V1/V2] LEFT VENTRICULAR HYPERTROPHY AND ST-T CHANGE [VOLTAGE CRITERIA PLUS ST/T ABNORMALITY] INTERPRETATION BASED ON A DEFAULT AGE OF 40 YEARS Compared to ECG 12/09/2022 09:44:00 NO SIGNIFICANT CHANGE Electronically Signed On 05-04-2025 16:21:18 LUMBER INSPECTOR by Woody Madrigal M.D. [email or web address]
--- OUTSIDE RECORDS SUMMARY | 2025-05-01 16:43 | XMS_ITS | Encounter Summary ---
Author Organization [facility] Address [address] [place] [address] Care Team Providers Care Shank Tapper Name Role Phone Rashad Stockton MD Primary Care Provider [phone] Encounter Details Date Type Department Care Team (Latest Contact Info) Description 08/12/2001 Outpatient Historical HIS [facility] Favian Goldstein MD [address] [place] [phone] STOMACH FUNCTION DIS NEC (Primary Dx) Social History Tobacco Use Types Packs/Day Years Used Date Smoking Tobacco: Never Assessed Comments Unknown Sex and Gender Information Value Date Recorded Sex Assigned at Not on file 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
--- OUTSIDE RECORDS SUMMARY | 2025-05-01 16:43 | XMS_ITS | Clinical Summary ---
Author Organization [facility] Address [address] [facility] Attn: [place] [address] Care Team Providers Care Senior Microsoft Net Developer Name Role Phone Rashad Stockton MD Primary Care Provider [phone] Allergies Active Allergy Reactions Criticality Noted Date Comments Amoxicillin Hives,Rash High 08/26/2016 Medications tiZANidine (ZANAFLEX) 2 mg Tablet Take 1 Tablet (2 mg) by mouth every 6 hours as needed for Spasm. 60 Tablet 3 7 Active promethazine (PHENERGAN) 25 mg tablet Take 1 Tablet (25 mg) by mouth every 6 hours as needed for Nausea. 30 Tablet 6 7 Active sertraline (ZOLOFT) 50 mg tablet Take 50 mg by mouth daily. 7 Active topiramate (TROKENDI XR) 25 mg Extended Release 24 hour capsule Take 25 mg by mouth daily. 30 Capsule 11 7 Active busPIRone (BUSPAR) 5 mg tablet Take 5 mg by mouth 2 times daily. 7 Active SUMAtriptan (IMITREX) 100 mg tablet Take 1 Tablet (100 mg) by mouth see administration instructions may repeat in 2 hours; max dose 200mg in 24 hours . 12 Tablet 11 7 Active acetaminophen (TYLENOL) 500 mg tablet Take 1,000 mg by mouth every 6 hours as needed. 7 Active Active Problems Problem Noted Date Diagnosed Date Chronic migraine without aur a without status migrainosus, not intractable 08/26/2016 Cervicalgia 08/26/2016 Immunizations Immunization Administration Dates Next Due (M-M-R II/PRIORIX)(12 MO UP) MEASLES, MUMPS AND RUBELLA VIRUS VACCINE, 0.5 ML IM/SUBCUT 12/29/1996,09/16/1993 Dt Dtp Dtap Vaccine 01/13/2007, 7,09/02/1994,1992,1992,1992 HIB, Unspecified Formulation 09/16/1993, 1992,1992,1992 Hepatitis A Vaccine 01/13/2007 Hepatitis B Vaccine 09/08/1996,11/11/1994,1994 IPV/OPV 12/29/1996, 5,1992,1992 Social History Tobacco Use Types Packs/Day Years Used Date Smoking Tobacco: Never Assessed Comments Unknown Sex and Gender Information Value Date Recorded Sex Assigned at Not on file 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 Gender Identity Not on file Sexual Orientation Not on file Last Filed Vital Signs Vital Sign Reading Time Taken Comments Blood Pressure 129/88 08/26/2016 9:38 AM CDT Pulse 70 08/26/2016 9:38 AM CDT Temperature - - Respiratory Rate 14 08/26/2016 9:38 AM CDT Oxygen Saturation - - Inhaled Oxygen Concentration - - Weight 62.6 kg (138 lb) 08/26/2016 9:38 AM CDT Height 162.6 cm (5' 4 ) 08/26/2016 9:38 AM CDT Body Mass Index 23.69 08/26/2016 9:38 AM CDT Plan of Treatment Health Maintenance Due Date Last Done Comments HPV/Cotest (21-29) 2013 DTAP/TDAP/TD VACCINES (7 - Tdap) 01/13/2017 01/13/2007, 12/29/1996, 09/02/1994, Additional history exists CERVICAL CANCER SCREENING 2022 HPV/Cotest (30-65) 2022 PAP SMEAR 2022 INFLUENZA VACCINE (#1) 2024 HEPATITIS B VACCINES Completed 09/08/1996, 11/11/1994, 09/02/1994 HPV VACCINES (No Doses Required) Completed Care Teams Senior Microsoft Net Developer Relationship Specialty Start Date End Date Rashad Stockton MD [address] [phone] PCP - General Family Practice 08/26/16
--- OUTSIDE RECORDS SUMMARY | 2025-05-01 16:43 | XMS_ITS | Clinical Summary ---
Author Organization [facility] Address [address] [place] [address] Phone Care Team Providers Care Lokie Engineer Name Role Phone Rashad Stockton MD Primary Care Provider [phone] Allergies Active Allergy Reactions Criticality Noted Date Comments Amoxicillin Hives,Rash High 08/26/2016 Medications sertraline (ZOLOFT) 50 mg tablet Take 50 mg by mouth daily. Active busPIRone (BUSPAR) 5 mg tablet Take 5 mg by mouth 2 times daily. Active acetaminophen (TYLENOL) 500 mg tablet Take 1,000 mg by mouth every 6 hours as needed. Active topiramate (TROKENDI XR) 25 mg Extended Release 24 hour capsule Take 25 mg by mouth daily. 30 Capsule 11 7 Active SUMAtriptan (IMITREX) 100 mg tablet Take 1 Tablet (100 mg) by mouth see administration instructions may repeat in 2 hours; max dose 200mg in 24 hours . 12 Tablet 11 7 Active promethazine (PHENERGAN) 25 mg tablet Take 1 Tablet (25 mg) by mouth every 6 hours as needed for Nausea. 30 Tablet 6 7 Active tiZANidine (ZANAFLEX) 2 mg Tablet Take 1 Tablet (2 mg) by mouth every 6 hours as needed for Spasm. 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 Gender Identity Not on file Sexual Orientation Not on file Last Filed Vital Signs Vital Sign Reading Time Taken Comments Blood Pressure 129/88 08/26/2016 9:38 AM CDT Pulse 70 08/26/2016 9:38 AM CDT Temperature - - Respiratory Rate 14 08/26/2016 9:38 AM CDT Oxygen Saturation 98% 08/26/2016 9:38 AM CDT Inhaled Oxygen Concentration - - Weight 62.6 [...] 09/02/1994 HPV VACCINES (No Doses Required) Completed Insurance [facility] [id number] [facility] PPO Care Teams Lokie Engineer Relationship Specialty Start Date End Date Rashad Stockton MD [address] [facility] [address] [place] [phone] PCP - General Family Practice 08/26/16
--- OUTSIDE RECORDS SUMMARY | 2025-05-01 16:43 | XMS_ITS | Encounter Summary ---
Author Organization [facility] Address [address] [place] [address] Care Team Providers Care Director Internal Control Name Role Phone Rashad Stockton MD Primary Care Provider [phone] Encounter Details Date Type Department Care Team (Latest Contact Info) Description 07/01/2001 Outpatient Historical HIS [facility] Favian Goldstein MD [address] [place] [phone] ABDOMINAL PAIN UNSPEC SITE (Primary Dx); ABDOMINAL PAIN EPIGASTRIC Social History Tobacco Use Types Packs/Day Years Used Date Smoking Tobacco: Never Assessed Comments Unknown Sex and Gender Information Value Date Recorded Sex Assigned at Not on file 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
--- OUTSIDE RECORDS SUMMARY | 2025-05-01 16:43 | XMS_ITS | Encounter Summary ---
Author Organization [facility] Address [address] [place] [address] Care Team Providers Care Dermatology Teacher Name Role Phone Rashad Stockton MD Primary Care Provider [phone] Encounter Details Date Type Department Care Team (Latest Contact Info) Description 07/19/2001 Outpatient Historical HIS [facility] Favian Goldstein MD [address] [place] [phone] ABDOMINAL PAIN UNSPEC SITE (Primary Dx) Social History Tobacco Use Types Packs/Day Years Used Date Smoking Tobacco: Never Assessed Comments Unknown Sex and Gender Information Value Date Recorded Sex Assigned at Not on file 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
--- OUTSIDE RECORDS SUMMARY | 2025-05-01 16:43 | XMS_ITS | Encounter Summary ---
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
--- OUTSIDE RECORDS SUMMARY | 2025-05-01 16:43 | XMS_ITS | Encounter Summary ---
[facility] Organization [facility] Address [address] [place] [address] Care Team Providers Care Automotive Professional Name Role Phone Rashad Stockton MD Primary Care Provider [phone] Encounter Details Date Type Department Care Team (Latest Contact Info) Description 09/14/2001 Outpatient Historical [facility] Favian Goldstein MD [address] [place] [id number] ACUTE PHARYNGITIS (Primary Dx); UNSPECIFIED VIRAL INFECTION Social History Tobacco Use Types Packs/Day Years Used Date Smoking Tobacco: Never Assessed Comments Unknown Sex and Gender Information Value Date Recorded Sex Assigned at Not on file Legal Sex Female 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
--- NOTE | 2025-05-01 17:41 | XRR_ITS ---
PROCEDURE INFORMATION: Exam: XR Chest Exam date and time: 05/01/2025 5:46 PM Age: 34 years old Clinical indication: Pain; Chest pressure; Additional info: Chest pain TECHNIQUE: Imaging protocol: Radiologic exam of the chest. Views: 1 view. COMPARISON: CR XR chest 1V portable [id number] 12/09/2022 10:32 AM FINDINGS: Lungs: Unremarkable. No consolidation. Pleural spaces: Unremarkable. No pleural effusion. No pneumothorax. Heart/Mediastinum: Unremarkable. No cardiomegaly. Bones/joints: Unremarkable. XR/XR chest 1V portable [id number] IMPRESSION: No acute findings.
[2025-05-01 18:22] LABS: Hematocrit 48.0 % (36-47); Hemoglobin 15.70 g/dL (11.27-16.99); Mean Corpuscular HGB Conc 32.7 g/dL (30-55); Mean Corpuscular Hemoglobin 28.8 pg (27-33); Mean Corpuscular Volume 87.9 fl (85-98); Nucleated Red Blood Cells % 0 %; Platelet Count 389 10^3/cmm (157-399); Red Blood Count 5.46 10^6/uL (3.85-5.65); White Blood Count 8.07 10^3/uL (3.29-11.43)
[2025-05-01 18:25] VITALS: PULSE 86; O2SAT 99
--- NOTE | 2025-05-01 18:39 | ED_ITS ---
HPI - Chest Pain 2 General: Chief Complaint: Chest Pain Stated Complaint: cp HBP Time Seen by Provider: 05/01/25 18:19 History of Present Illness: 34-year-old female history of hypertensi on and history of SVT presents emergency room complaining of intermittent chest pain last couple of days. Worse today. She notes her blood pressures elevated as well. She is currently on diltiazem 360 mg daily. She is continue to take that regularly. She is also on spironolactone hydrochlorothiazide. No recent episodes of SVT rapid heart rates or palpitations that she has noted. Associated symptoms: Deny abdominal pain, dyspnea or fever(s) Related Data Previous Rx's ?Medication ?Instructions ?Recorded diclofenac sodium 1 % topical gel 4 g topical QID #100 grams 04/29/23 (Voltaren Arthritis Pain) lidocaine 3 %-hydrocortisone 0.5 % 1 applic topical TI D PRN 07/16/23 topical cream (Lidocort) hemorrhoids #28.35 grams ibuprofen 800 mg tablet 800 mg PO Q6H PRN pain #30 t abs 09/07/23 estradiol 0.5 mg tablet See Rx Instructions .Route 0 08/02/24 .COMPLEX #90 tabs albuterol sulfate 90 mcg/actuation 2 puff inhalation Q 4H PRN 10/12/24 aerosol inhaler (Ventolin HFA) shortness of breath or wheezing #8.5 grams metronidazole 0.75 % topical gel 1 applic topical YOMAIRA Y 5 days #45 10/31/24 grams diltiazem HCl 360 mg capsule,24 360 mg PO DAILY #90 ca ps 01/30/25 hr,extended release quetiapine 50 mg tablet 50 mg PO DAILY #30 tabs 01/03 01/26 vilazodone 20 mg tablet (Viibryd) 20 mg PO DAILY #30 t abs 01/31/25 venlafaxine 75 mg capsule,extended 75 mg PO DAILY #30 caps 03/16/25 release 24 hr spironolactone 25 1 tab PO DAILY #90 tabs 03/05 025 mg-hydrochlorothiazide 25 mg tablet lisinopril 10 mg tablet 10 mg PO DAILY #30 tabs 04/04 01/26 Allergies Allergy/AdvReac Type Severity Reaction Status Date / Time amoxicillin Allergy Rash-can Verified 05/01/25 16:47 take Keflex Review of Systems 2 Const: Denies: fever(s) or chills Card: Reports: chest pain; Denies: swelling of feet/ankles, dyspnea on exertion or orthopnea Resp: Denies: dyspnea GI: Denies: abdominal pain : Denies: dysuria, urinary frequency or urinary urgency Musc: Denies: neck pain or back pain Skin/Breast: Denies: rash PFSH ED 2 PFSH: Medical History Insomnia Recurrent cold sores Sore throat and laryngitis Right flank pain No pertinent past medical history Denies diabetes, asthma, seizures, DVT/PE, hypertension PMD: Dr. Pal Anxiety and depression Symptoms well controlled on medication managed by her primary care provider. Inappropriate sinus tachycardia seeing Dr. Andre in [place] Heartburn Diagnosed with esophagitis and gastritis on endoscopy done in February 2017. This was performed by Dr. Pal and she was taking Prilosec at the start of the . Surgical History Status post laparoscopic cholecystectomy (10/31/20) Laparoscopic procedure performed by Dr. Ballesteros [place] [facility] [place] History of esophagogastroduodenoscopy (EGD) 2020 History of colonoscopy 2016 History of bunionectomy of left great toe 2019--had problems with the hardware and had a revision surgery in February 2021. This was done at [facility] Status post tubal ligation 09/15/2019--- laparoscopic bilateral total salpingectomy for sterilization performed by Dr. Paz at [facility]. Pathology showed benign fallopian tubes bilaterally with lumens. H/O right wrist surgery (~03/2015) Done for ganglion cyst at [facility] H/O laparoscopy (08/03/08) 08/03/2008--> done for chronic pelvic pain by Dr. Singleton. Operative findings showed removal of hemoperitoneum with fulguration of endometriotic lesions in the cul-de-sac biopsy. Fallopian tubes looked normal. Biopsy of the cul-de-sac lesions show abnormal endometrial glands. Endometrial biopsy was performed at the same time which showed mild proliferation. (Records are scanned into the all scripts ) Family History Grandfather Heart disease Paternal; at age 36 of [place] Father Hypertension Mother Diabetes Family/Other Diabetes maternal aunt Grandmother Diabetes maternal Denies family history of Cervical cancer Colon cancer Ovarian cancer DVT (deep venous thrombosis) Hyperlipidemia Breast cancer Pulmonary embolism Lung disease Uterine cancer Thyroid disease Stroke Social History Smoking and tobacco/nicotine status: current every day tobacco/nicotine user e- cigarettes E-Cigarette Details: vaporizer device E-cig/vape details: previous 9PY (quit 2020) Alcohol intake: former Substance/Drug Use: never Lives independently: Yes Marital status: Number of children: 3 Current occupational status: employed Current occupation: [employer] Current gender identity: Female Special preston needs: No Agree to transfusion: Yes Physical Exam 2 Const: COMMON NORMALS: no acute distress GENERAL APPEARANCE: cooperative and comfortable ORIENTATION/CONSCIOUSNESS: Yes awake, Yes oriented to person, Yes oriented to place and Yes oriented to time HENMT: COMMON NORMALS: normocephalic, atraumatic and hearing grossly normal bilaterally HEAD & SCALP: normocephalic and atraumatic Resp: COMMON NORMALS: normal respiratory effort, No retractions, No use of accessory muscles and clear to auscultation bilaterally AUSCULTATION: clear to auscultation bilaterally Cardio: COMMON NORMALS: regular rate, regular rhythm and No murmurs present (Cardio) RATE: regular rate RHYTHM: regular rhythm GI: COMMON NORMALS: Soft to palpation and No hepatosplenomegaly present A USCULTATION: Yes normoactive bowel sounds PALPATION: Yes Soft to palpation, No Tenderness to palpation present (GI), No Guarding due to palpation present (GI) and Yes No hepatosplenomegaly present Extremity: COMMON NORMALS: normal to inspection, capillary refill normal, no clubbing, cyanosis or edema, no calf tenderness and no pedal edema Neuro: SENSORIUM/ORIENTATION: Yes oriented to person, Yes oriented to place and Yes oriented to time Skin: COMMON NORMALS: no rashes or lesions noted GENERAL SKIN EXAM: no rashes or lesions noted Course 2 Vital Signs: Vital signs: Vital Signs Temperature 97.9 F 05/01/25 16:39 Pulse Rate 93 05/01/25 22:12 Blood Pressure 139/93 05/01/25 22:12 Pulse Oximetry 98 05/01/25 22:12 Oxygen Delivery Me thod Room Air 05/01/25 18:25 MDM - Chest Pain Medical Decision Making Labs and imaging reviewed. White count 8 7 hemoglobin 15.7 platelets 389 no significant abnormalities on her chemistry panel renal function normal electrolytes no significant abnormalities liver functions also normal troponin initial and 1 hour both in undetectable range is less than 6. TSH normal and beta-hCG negative Medical Records I reviewed the patient's medical records. Lab Data I reviewed the patient's lab results. 05/01/25 18:12 05/01/25 18:12 Radiology Impressions Chest X-Ray 05/01/25 17:41 IMPRESSION: No acute findings. Laboratory Results WBC 8.07 10^3/uL (3.29-11.43) 05/01/25 18:12 RBC 5.46 10^6/uL (3.85-5.65) 05/01/25 18:12 Hgb 15.70 g/dL (11.27-16.99) 05/01/25 18:12 Hct 48.0 % (36-47) H 05/01/25 18:12 MCV 87.9 fl (85-98) 05/01/25 18:12 MCH 28.8 pg (27-33) 05/01/25 18:12 MCHC 32.7 g/dL (30-55) 05/01/25 18:12 RDW 12.6 % (12.1-15.1) 05/01/25 18:12 Plt Count 389 10^3/cmm (157-399) 05/01/25 18:12 MPV 9.5 fL (7.4-10.4) 05/01/25 18:12 Neut % (Auto) 59.3 % 05/01/25 18:12 Lymph % (Auto) 31.8 % 05/01/25 18:12 Refugio % (Auto) 7.8 % 05/01/25 18:12 Eos % (Auto) 0.5 % 05/01/25 18:12 Baso % (Auto) 0.2 % 05/01/25 18:12 Neut # (Auto) 4.78 10^3/uL (1.8-7.7) 05/01/25 18:12 Lymph # (Auto) 2.6 10^3/uL (0.8-4.8) 05/01/25 18:12 [place]ug[place] # (Auto) 0.6 10^3/uL (0.2-0.9) 05/01/25 18:12 Eos # (Auto) 0.0 10^3/uL (0.0-0.8) 05/01/25 18:12 Baso # (Auto) 0.0 10^3/uL (0.0-0.1) 05/01/25 18:12 Nucleated RBC % (auto) 0 % 05/01/25 18:12 Nucleated RBCs # 0.0 /100WBC 05/01/25 18:12 Sodium 135 mmol/L (136-145) L 05/01/25 18:12 Potassium 3.6 mmol/L (3.5-5.1) 05/01/25 18:12 Chloride 95 mmol/L (98-107) L 05/01/25 18:12 Carbon Dioxide 23 mmol/L (22-29) 05/01/25 18:12 Anion Gap 20.6 (5-19) H 05/01/25 18:12 BUN 13 mg/dL (6-20) 05/01/25 18:12 Creatinine 0.6 mg/dL (0.5-0.9) 05/01/25 18:12 GFR Calculation 115.9 mL/min (90-130) 05/01/25 18:12 Glucose 89 mg/dL (65-115) 05/01/25 18:12 Calculated Osmolality 280 mOsm/kg (285-295) L 05/01/25 18:12 Calcium 10.4 mg/dL (8.5-10.5) 05/01/25 18:12 Total Bilirubin 1.0 mg/dL (0.15-1.2) 05/01/25 18:12 AST 22 U/L (0-32) 05/01/25 18:12 ALT 25 U/L (0-33) 05/01/25 18:12 Alkaline Phosphatase 79 U/L (35-105) 05/01/25 18:12 Troponin T Baseline < 6 ng/L (0-10) 05/01/25 18:12 Troponin T 60 Minute < 6.0 ng/L (0-10) 05/01/25 19:06 Delta Troponin T 0 ABS# (0-10) 05/01/25 19:06 NT-Pro-B Natriuret Pep < 36 pg/mL (0-125) 05/01/25 18:12 Total Protein 8.1 g/dL (6.6-8.7) 05/01/25 18:12 Albumin 5.2 g/dL (3.5-5.2) 05/01/25 18:12 Globulin 2.9 g/dL (1.3-4.6) 05/01/25 18:12 TSH 1.73 uIU/mL (0.27-4.20) 05/01/25 18:12 HCG, Qual Negative (Negative) 05/01/25 18:12 All radiology interpretation(s) finalized by discharge ED provider radiology interpretation(s): EKG read by myself mild hyperinflation. No cardiomegaly no infiltrates no effusion no increased pulmonary vasculature. Osseous structures unremarkable as visualized. Personal jewelry noted on chest x-ray EKG Data EKG 1: Interpretation: EKG 05/01/2025 1643 sinus rhythm rate of 90 MS interval 160 QTc [address] changes noted changes of LVH. Compared to EKG 12/09/2022 LVH more prominently noted. Early changes of LVH on previous EKG EKG 2: I personally reviewed and interpreted this EKG as follows: Interpretation: EKG 05/01/2025 1902 sinus rhythm rate of 73 MS interval 165 QTc 429. LVH less prominent than EKG done earlier today but still present. No ST elevation no acute STEMI. Discharge Plan Discharge Patient Disposition: Home Clinical Impression: Hypertension, H/O supraventricular tachycardia, Headache Condition: Stable Prescriptions: New lisinopril 10 mg tablet 10 mg PO DAILY Qty: 30 0RF No Action ibuprofen 800 mg tablet 800 mg PO Q6H PRN (Reason: pain) Qty: 30 0RF albuterol sulfate [Ventolin HFA] 90 mcg/actuation HFA aerosol inhaler 2 puff inhalation Q4H PRN (Reason: shortness of breath or wheezing) Qty: 8.5 0RF diclofenac sodium [Voltaren Arthritis Pain] 1 % gel 4 g topical QID Qty: 100 0RF Rx Instructions: apply to single knee, ankle, foot; for foot includes sole/toes/top of foot lidocaine HCl-hydrocortison ac [Lidocort] 3-0.5 % cream 1 applic topical TID PRN (Reason: hemorrhoids) Qty: 28.35 0RF estradiol 0.5 mg tablet See Rx Instructions .ROUTE .COMPLEX Qty: 90 3RF Dose Instruction: TAKE 1 TABLET BY MOUTH EVERY DAY Rx Instructions: TAKE 1 TABLET BY MOUTH EVERY DAY metronidazole 0.75 % gel 1 applic topical DAILY 5 Days Qty: 45 0RF quetiapine 50 mg tablet 50 mg PO DAILY Qty: 30 1RF diltiazem HCl 360 mg capsule,extended release 24 hr 360 mg PO DAILY Qty: 90 1RF vilazodone [Viibryd] 20 mg tablet 20 mg PO DAILY Qty: 30 0RF Rx Instructions: must administer with a meal/food. venlafaxine 75 mg capsule,extended release 24hr 75 mg PO DAILY Qty: 30 3RF spironolacton-hydrochlorothiaz 25-25 mg tablet 1 tab PO DAILY Qty: 90 1RF Discharge Orders: Discharge ED (Routine); Ordered 05/01/25 Ordered By: Ivan Sepulveda Referrals: Jas Morris MD [Primary Care Provider, Family Practice] Discharge Diet: Usual diet Discharge Activity: Increase activity as tolerated Patient Instructions: Opioid Safety, Pain Management, Patient Portal & Katey Instructions Activity Restrictions/Additional Instructions: Thank you for choosing [facility] for your healthcare needs today. It is very important that you follow up as instructed or that you return to the Emergency Department should you have concerns or if your condition changes or worsens in any way. Emergency department visits are focused on emergent conditions, in some cases you may require further evaluation on an outpatient basis. You were seen in the emergency room with complaints of elevated blood pressure and headache. Your blood pressure and symptoms improved with medications given. Recommend you start lisinopril once daily continue all of your other medications. You should follow-up with your primary care doctor within the next week to reevaluate your blood pressure. If you have any worsening problems or difficulties recurrence of headache or uncontrolled blood pressure return to the emergency room (Please note that included in your discharge packet is information concerning opioid safety and pain management. This information is given to all patients were discharged from the ER regardless of their discharge diagnosis or the medicines they usually take or are prescribed.) Stand Alone Forms: Work/School Release Print Language: Kittitian Coding Level of Care Code ED Pbx Technician for Chg Fwd Heart Score HEART Score Components History: Slightly Suspicous EKG: Normal Age: Less than 45 yrs Risk Factors: 1 or 2 Risk Factors Troponin: Baseline Trop <16 ng/L HEART Score RESULT HEART Score: 1
--- NOTE | 2025-05-01 18:42 | ECG_ITS ---
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
[2025-05-01 18:45] LABS: Troponin(5th) Baseline < 6 ng/L (0-10)
[2025-05-01 18:47] LABS: HCG, Serum Qual Negative (Negative)
[2025-05-01 19:01] LABS: Alanine Aminotransferase 25 U/L (0-33); Albumin Level 5.2 g/dL (3.5-5.2); Alkaline Phosphatase 79 U/L (35-105); Anion Gap 20.6 (5-19); Aspartate Amino Transferase 22 U/L (0-32); Blood Urea Nitrogen 13 mg/dL (6-20); Calcium 10.4 mg/dL (8.5-10.5); Carbon Dioxide 23 mmol/L (22-29); Chloride 95 mmol/L (98-107); Globulin 2.9 g/dL (1.3-4.6); Glucose 89 mg/dL (65-115); NT Pro B Type Natriuretic Pept < 36 pg/mL (0-125); Osmolality Calculated 280 mOsm/kg (285-295); Potassium 3.6 mmol/L (3.5-5.1); Sodium 135 mmol/L (136-145); Thyroid Stimulating Hormone 1.73 uIU/mL (0.27-4.20); Total Protein 8.1 g/dL (6.6-8.7)
--- NOTE | 2025-05-01 19:58 | PC.NURSE ---
Assumed pt. care Pt. reports substernal cp that radiates to abdomen and to left shoulder. pt. reports a [facility] pt. has a cardiac hx.
[2025-05-01 20:00] VITALS: BP 133/97; PULSE 80; O2SAT 99
[2025-05-01 21:55] VITALS: BP 148/92; PULSE 60; O2SAT 92
[2025-05-01 22:12] VITALS: BP 139/93; PULSE 93; O2SAT 98
== END 2025-05-01 22:12 | disposition home or self-care (01) ==
PROVIDERS: Physician Assistant; Emergency Provider Family Medicine; PCP Family Medicine
DX: I10 Essential (primary) hypertension (principal); R51.9 Headache, unspecified; Z86.79 Personal history of other diseases of the circulatory system; F17.290 Nicotine dependence, other tobacco product, uncomplicated
CPT/HCPCS: 36415; 71045; 80053; 83880; 84443; 84484; 84703; 85025; 93005; 99285